=== PATIENT | female | born 1980 | race Caucasian/White ===

== ENCOUNTER 2023-09-18 09:07 | Observation (INO) | payer MEDICAID, SELFPAY ==
[2023-09-18 09:14] VITALS: BP 163/101; PULSE 95; RESP 16; TEMP 37; O2SAT 99; BMI 36.6
--- NOTE | 2023-09-18 09:21 | ED.ANIMALBI1 ---
HPI - Animal Bite General Chief Complaint: Extremity Injury, Upper Stated Complaint: UPPER EXTREMITY INJURY- RIGHT Time Seen by Provider: 09/18/23 09:12 Source: patient Mode of arrival: walk-in Limitations: no limitations History of Present Illness HPI narrative: 43-year-old female presents for dog bite to her right hand. This was sustained two days ago. She was seen at an urgent care center that day and then received a phone call from her pharmacy today that her antibiotic was ready. She hasn't taken any yet. Last tetanus shot was three years ago. She was told her middle finger was broken but now her index finger is quite red and swollen. Related Data Home Medications Medication Instructions Recorded Confirmed buspirone 15 mg tablet 15 mg PO BID 09/18/23 09/18/23 duloxetine 30 mg capsule,delayed 30 mg PO BID 09/18/23 09/18/23 release (Cymbalta) Allergies Allergy/AdvReac Type Severity Reaction Status Date / Time No Known Drug Allergies Allergy Verified 09/18/23 09:13 Review of Systems ROS Narrative A ten point review of systems is negative except as noted above. PFSH PFSH Social History Smoking status: Never smoker Exam Narrative Exam Narrative: Nurses note and vital signs reviewed and patient is not hypoxic. General: The patient appears well and in no apparent distress. Patient is resting comfortably on cart. Skin: Warm, dry, no pallor noted. There is no rash noted. Head: Normocephalic, atraumatic Eye: Normal conjunctiva, no drainage Ears, Nose, Mouth, and Throat: oral mucosa is moist. Nares patent. Cardiovascular: Regular Rate and Rhythm Respiratory: Patient is in no distress, no accessory muscle use, lungs are clear to auscultation, no wheezing, rales or rhonchi Back: non-tender GI: soft and nontender Musculoskeletal: the right hand is examined. The index finger is erythematous and somewhat swollen limiting her range of motion. There is no active drainage. She has some tenderness in the 3rd finger as well. Neurological: A&O, normal speech Psychiatric: Cooperative Constitutional Vital Signs, click to edit/add: Last Vital Signs Temp 98.6 F 09/18/23 09:14 Pulse 95 H 09/18/23 09:14 Resp 16 09/18/23 09:14 BP 163/101 H 09/18/23 09:14 Pulse Ox 99 09/18/23 09:14 O2 Del Method Room Air 09/18/23 09:14 Course Vital Signs Vital signs: Vital Signs Temperature 98.6 F 09/18/23 09:14 Pulse Rate 95 H 09/18/23 09:14 Respiratory Rate 16 09/18/23 09:14 Blood Pressure 163/101 H 09/18/23 09:14 Pulse Oximetry 99 09/18/23 09:14 Oxygen Delivery Method Room Air 09/18/23 09:14 Temperature 98.6 F 09/18/23 09:14 Pulse Rate 95 H 09/18/23 09:14 Respiratory Rate 16 09/18/23 09:14 Blood Pressure 163/101 H 09/18/23 09:14 Pulse Oximetry 99 09/18/23 09:14 Oxygen Delivery Method Room Air 09/18/23 09:14 MDM - Animal Bite MDM Narrative Medical decision making narrative: X-ray shows no fracture or foreign body. She has cellulitis of her right index finger. I've no clinical suspicion of tenoynovitis and there is no evidence of an abscess. she was given IV Unasyn and is being admitted. Treatment diagnosis and disposition were discussed with the patient. Differential Diagnosis Differential diagnosis: Likely dog bite and other (cellulitis, foreign body, fracture) Lab Data Attestation: I reviewed the patient's lab results. Labs: Lab Results 09/18/23 Range/Units 09:27 WBC 7.9 (4.0-11.0) 10^3/uL RBC 4.55 (4.20-5.40) 10^6/uL Hgb 13.8 (12.0-16.0) g/dL Hct 41.9 (36.0-48.0) % MCV 92.1 (81.0-99.0) fL MCH 30.3 (26.7-34.0) pg MCHC 32.9 (29.9-35.2) g/dL RDW 13.2 (11.0-15.0) % Plt Count 263 (150-450) 10^3/uL MPV 9.2 L (9.5-13.5) fL Neut % (Auto) 63.6 (43.0-75.0) % Lymph % (Auto) 23.8 (20.5-60.0) % [place] % (Auto) 8.7 (1.7-12.0) % Eos % (Auto) 2.7 (0.9-7.0) % Baso % (Auto) 0.9 (0.2-2.0) % Neut # (Auto) 5.0 (1.4-6.5) 10^3/uL Lymph # (Auto) 1.9 (1.2-3.8) 10^3/uL [place] # (Auto) 0.7 (0.3-0.8) 10^3/uL Eos # (Auto) 0.2 (0.0-0.7) 10^3/uL Baso # (Auto) 0.1 (0.0-0.1) 10^3/uL Abs Immat Gran (auto) 0.02 (0.00-0.03) 10^3/uL Imm/Tot Granulo (auto) 0.3 (0.0-0.5) % Sodium 139 (136-145) mmol/L Potassium 3.7 (3.5-5.1) mmol/L Chloride 103 (98-107) mmol/L Carbon Dioxide 27.6 (21.0-32.0) mmol/L Anion Gap 12.1 BUN 13.0 (7.0-18.0) mg/dL Creatinine 0.67 (0.55-1.02) mg/dL Est GFR ( Amer) >60 (>=60) Est GFR (Non-Af Amer) >60 (>=60) BUN/Creatinine Ratio 19.4 Glucose 105 (74-106) mg/dL Calcium 8.7 (8.5-10.1) mg/dL Imaging Data hand x-ray: Radiologist's impression: ITS Impressions Hand X-Ray 09/18/23 09:35 IMPRESSION: 1. No radiopaque foreign body. 2. No bone involvement. Electronically authenticated by: EDI CHÁVEZ Date: 09/18/2023 10:07 Discharge Plan Discharge Chief Complaint: Extremity Injury, Upper Clinical Impression: Dog bite, Cellulitis Patient Disposition: Admitted as Observation Time of Disposition Decision: 11:06 Condition: Good
[2023-09-18 09:31] LABS: Basophils Absolute Auto 0.1 10^3/uL (0.0-0.1); Basophils Percent Auto 0.9 % (0.2-2.0); Eosinophils Absolute Auto 0.2 10^3/uL (0.0-0.7); Eosinophils Percent Auto 2.7 % (0.9-7.0); Hematocrit 41.9 % (36.0-48.0); Hemoglobin 13.8 g/dL (12.0-16.0); Immature Granulocytes Abs Auto 0.02 10^3/uL (0.00-0.03); Immature Granulocytes Pct Auto 0.3 % (0.0-0.5); Lymphocytes Absolute Auto 1.9 10^3/uL (1.2-3.8); Lymphocytes Percent Auto 23.8 % (20.5-60.0); Mean Corpuscular HGB Conc 32.9 g/dL (29.9-35.2); Mean Corpuscular Hemoglobin 30.3 pg (26.7-34.0); Mean Corpuscular Volume 92.1 fL (81.0-99.0); Mean Platelet Volume 9.2 fL (9.5-13.5); Monocytes Absolute Auto 0.7 10^3/uL (0.3-0.8); Monocytes Percent Auto 8.7 % (1.7-12.0); Neutrophils Percent Auto 63.6 % (43.0-75.0); Platelet Count 263 10^3/uL (150-450); Red Blood Count 4.55 10^6/uL (4.20-5.40); Red Cell Distribution Width 13.2 % (11.0-15.0); White Blood Count 7.9 10^3/uL (4.0-11.0)
--- NOTE | 2023-09-18 09:35 | XR_ITS ---
The [address] [address] Patient Name: ALFIE HICKS MRN: [id number] date: 1980 Sex: F Assigned Patient Location: ER Current Patient Location: ER Accession/Order Number: [id number] Exam Date: 09/18/2023 09:30 Report Date: 09/18/2023 10:07 At the request of: NATHANAEL GUPTA Procedure: XR hand RT min 3V PROCEDURE: XR hand RT min 3V HISTORY: dog bite ; swelling of second and third digits COMPARISON: None. FINDINGS: BONES:No fracture, acute abnormality, or significant arthropathy. SOFT TISSUES:Mild soft tissue swelling of second third digit. No radiopaque foreign body. EFFUSION:None visible. OTHER: Negative. XR/XR hand RT min 3V IMPRESSION: 1. No radiopaque foreign body. 2. No bone involvement. Electronically authenticated by: EDI CHÁVEZ Date: 09/18/2023 10:07
[2023-09-18] MEDS: AMPICILLIN SODIUM/SULBACTAM NA 3 GM in 0.9 % SODIUM CHLORIDE 100 ML IV ×3 (09:39→21:29)
[2023-09-18 09:47] LABS: Anion Gap 12.1; BUN Creatinine Ratio 19.4; Calcium 8.7 mg/dL (8.5-10.1); Carbon Dioxide 27.6 mmol/L (21.0-32.0); Chloride 103 mmol/L (98-107); Estimated GFR (African America >60 (>=60); Estimated GFR (Non-African Ame >60 (>=60); Glucose 105 mg/dL (74-106); Potassium 3.7 mmol/L (3.5-5.1); Sodium 139 mmol/L (136-145)
[2023-09-18 11:30] VITALS: BP 136/74; PULSE 84; RESP 18; O2SAT 99
[2023-09-18 11:58] VITALS: BP 153/90; PULSE 73; RESP 18; TEMP 36.8; O2SAT 98; BMI 37.7
[2023-09-18] MEDS: IBUPROFEN 400 MG TABLET 800 MG PO ×2 (14:08→22:07)
[2023-09-18] MEDS: AMLODIPINE BESYLATE 5 MG TABLET PO (14:08)
[2023-09-18 19:29] VITALS: RESP 18
[2023-09-18] MEDS: DULOXETINE HCL 30 MG CAPSULE.DR PO (21:29)
[2023-09-18] MEDS: BUSPIRONE HCL 15 MG TABLET PO (21:29)
[2023-09-18 21:36] VITALS: BP 146/95; PULSE 86; RESP 18; TEMP 36.8; O2SAT 98
[2023-09-19] MEDS: AMPICILLIN SODIUM/SULBACTAM NA 3 GM in 0.9 % SODIUM CHLORIDE 100 ML IV ×2 (03:56→09:32)
[2023-09-19 04:49] VITALS: BP 129/80; PULSE 71; RESP 18; TEMP 36.6; O2SAT 98
[2023-09-19 05:33] LABS: Basophils Absolute Auto 0.1 10^3/uL (0.0-0.1); Basophils Percent Auto 0.6 % (0.2-2.0); Eosinophils Absolute Auto 0.2 10^3/uL (0.0-0.7); Eosinophils Percent Auto 2.9 % (0.9-7.0); Hematocrit 41.5 % (36.0-48.0); Hemoglobin 13.7 g/dL (12.0-16.0); Immature Granulocytes Abs Auto 0.02 10^3/uL (0.00-0.03); Immature Granulocytes Pct Auto 0.3 % (0.0-0.5); Lymphocytes Absolute Auto 2.4 10^3/uL (1.2-3.8); Lymphocytes Percent Auto 30.4 % (20.5-60.0); Mean Corpuscular Hemoglobin 30.1 pg (26.7-34.0); Mean Corpuscular Volume 91.2 fL (81.0-99.0); Mean Platelet Volume 9.9 fL (9.5-13.5); Monocytes Absolute Auto 0.6 10^3/uL (0.3-0.8); Monocytes Percent Auto 7.7 % (1.7-12.0); Neutrophils Absolute Auto 4.6 10^3/uL (1.4-6.5); Neutrophils Percent Auto 58.1 % (43.0-75.0); Platelet Count 276 10^3/uL (150-450); Red Blood Count 4.55 10^6/uL (4.20-5.40); Red Cell Distribution Width 13.2 % (11.0-15.0); White Blood Count 7.9 10^3/uL (4.0-11.0)
[2023-09-19 05:45] LABS: Anion Gap 13.7; BUN Creatinine Ratio 20.6; Calcium 8.8 mg/dL (8.5-10.1); Carbon Dioxide 25.1 mmol/L (21.0-32.0); Chloride 105 mmol/L (98-107); Estimated GFR (African America >60 (>=60); Estimated GFR (Non-African Ame >60 (>=60); Glucose 104 mg/dL (74-106); Potassium 3.8 mmol/L (3.5-5.1); Sodium 140 mmol/L (136-145)
[2023-09-19] MEDS: BUSPIRONE HCL 15 MG TABLET PO (08:25)
[2023-09-19] MEDS: DULOXETINE HCL 30 MG CAPSULE.DR PO (08:25)
[2023-09-19] MEDS: AMLODIPINE BESYLATE 5 MG TABLET PO (08:25)
--- NOTE | 2023-09-19 09:59 | P.HP_ITS ---
<Statement entered by Joel Gibbs MD - 09/19/23 17:09> Patient seen and examined, agree with assessment and plan below. Developed redness and swelling after dog bite. To urgent care but did not start antibiotics. Redness and pain worsened and to ER. Admitted on unasyn. Responded well and redness mostly resolved. Mild swelling. Discharged home in stable condition. Take augmentin PO for infection. Diagnosis: 1. Cellulitis right hand 2. Dog bite 3. HTN H&P: HPI History of Present Illness Chief complaint: UPPER EXTREMITY INJURY- RIGHT Narrative: 09/19/23 0958 This is a 43-year-old female patient with a past medical history as outlined below who presented to the ED yesterday morning complaining of increased swelling and redness to her right hand after suffering a dog bite on 09/16/23. The patient reports she had been attempting to break up a dog fight on Monday and was bitten accidentally by one of the dogs. She was seen at a local urgent care later that same day and was prescribed antibiotic. Apparently the antibiotic was out of stock at the pharmacy and they were going to call her when it was back in stock. By Monday (yesterday) the pharmacy is still not called and she decided to go to the ED for treatment as her symptoms were worsening. As she arrived at the ED she received a call from her pharmacy that the medication was available. Workup in the ED was relatively unremarkable without leukocytosis or lab abnormalities. The patient was afebrile. An x-ray of her hand did not find evidence of a foreign body, abscess, or acute bony abnormality. As her symptoms were worsening without treatment, she was admitted in observation yesterday afternoon to the hospitalist service for IV antibiotic administration and monitoring. At the time of my exam today the patient reports that her symptoms have significantly improved after IV antibiotic administration. The margins of her cellulitis had been marked in the ED and the redness had nearly completely resolved today. She has a tiny amount of serous drainage from one of the puncture wounds but no purulent drainage is noted. Her right index and middle finger are still swollen but improved from admission. She remains afebrile. DISPOSITION: As the patient is improving and able to take oral antibiotics, she is being discharged home in stable condition. She already has a prescription for Augmentin which is appropriate treatment for this wound. The patient has had a tetanus shot within the last 3 years. She should follow up with her PCP within 1 week and return to the ED if she develops a fever, purulent drainage or worsening redness, swelling, pain. Review of Systems ROS Status of ROS 10 or more systems reviewed and unremark able except as noted in history and below [facility] Medical History (Updated 09/19/23 @ 13:10 by Natalee Wilhelm NP) Hypertension ?I10 - Essential (primary) hypertension (ICD-10) Cellulitis ?L03.90 - Cellulitis, unspecified (ICD-10) ADHD ?F90.9 - Attention-deficit hyperactivity disorder, unspecified type (ICD-10) Anxiety ?F41.9 - Anxiety disorder, unspecified (ICD-10) Fibromyalgia ?M79.7 - Fibromyalgia (ICD-10) Surgical History (Updated 09/18/23 @ 11:53 by Bridget West) H/O lithotripsy ?Z98.890 - Other specified postprocedural states (ICD-10) Breast tumor ?D49.3 - Neoplasm of unspecified behavior of breast (ICD-10) History of partial gastrectomy ?Z90.3 - Acquired absence of stomach [part of] (ICD-10) Family History (Updated 09/18/23 @ 11:54 by Bridget West) Mother Family history of stroke Father Family history of myocardial infarction Family history of hypertension Social History (Updated 09/18/23 @ 11:56 by Bridget West) Within the past year, how often did you have a drink containing alcohol: 2-3 times a week Within the past year, how many standard drinks containing alcohol did you have on a typical day: 1 or 2 Within the past year, how often did you have six or more drinks on one occasion: never Total score: 0 Score interpretation: Questions 2 and 3 are 0. It can be assumed that the patient's drinking is below the recommended limits. However, please confirm the accuracy of the patient's alcohol intake over the last few months. Smoking status: Former smoker Non-prescribed substance use: denies use Previous occupational history: unemployed Highest level of school completed/degree received: Associate degree: academic program Are you now , , , , never or living with a partner: Little interest or pleasure in doing things: not at all Feeling down, depressed, or hopeless: not at all Feel stressed/tense/nervous/anxious/difficulty sleeping: not at all Meds Home Medications and Allergies Home Medications Medication Instructions Recorded Confirmed Type amlodipine 5 mg tablet 5 mg PO DAILY 09/18/23 09/18/23 History buspirone 15 mg tablet 15 mg PO BID 09/18/23 09/18/23 History duloxetine 30 mg capsule,delayed 30 mg PO BID 09/18/23 09/18/23 History release (Cymbalta) amoxicillin 875 mg-potassium 1 tab PO BID 09/19/23 09/19/23 History clavulanate 125 mg tablet Allergies Allergy/AdvReac Type Severity Reaction Status Date / Time No Known Drug Allergies Allergy Verified 09/18/23 09:13 Exam Constitutional Vital Signs, click to edit/add: Last Vital Signs Temp 97.9 F 09/19/23 04:49 Pulse 71 09/19/23 04:49 Resp 18 09/19/23 04:49 BP 129/80 09/19/23 04:49 Pulse Ox 98 09/19/23 04:49 O2 Del Method Room Air 09/19/23 04:49 Common normals: no apparent distress, oriented x3, alert and well nourished General appearance: cooperative Orientation/consciousness: Yes awake HENMT Common normals: normocephalic, head/scalp atraumatic, hearing grossly normal bilaterally, external nose normal and moist oral mucous membranes Eye Common normals: PERRL, EOMs intact bilaterally, conjunctivae normal and no scleral icterus Alignment: alignment normal Eyelid: eyelids normal Neck & C-Spine Common normals: full ROM, supple and no JVD Chest Common normals: inspection of chest normal Chest: symmetrical chest wall rise Respiratory Common normals: normal respiratory effort, no retractions, no use of accessory muscles and clear to auscultation bilaterally Effort & inspection: able to speak in complete sentences Cardio Common normals: no JVD, regular rate, regular rhythm, S1 normal heart sound, S2 normal heart sound, no gallops, no clicks, no murmurs, no rub and peripheral pulses 2+ throughout GI Common normals: Normal to inspection, nondistended, normoactive bowel sounds present, soft to palpation, non-tender, no hepatosplenomegaly, no masses and no bruits Bladder/kidney exam: bladder normal to palpation Back & Pelvis Common normals: thoracic and lumbar spine normal to inspection Extremity Common normals: normal capillary refill and no pedal edema General: normal exam except as noted; no clubbing and no cyanosis Right upper extremity: hand and digits (R 2nd & 3rd digits swollen, minimal erythema, mild serous drng) Left upper extremity: hand and digits (Small 2nd digit puncture wound) Neuro [place] Coma Scale: GCS not evaluated Common normals: CN's II-XII intact bilaterally, moves all extremities, no focal motor deficits and no sensory deficits noted Speech: speech normal Motor exam: strength 5/5 throughout Psych Common normals: mental status grossly normal, thought process normal, affect normal and activity/motor behavior normal Results Labs Labs: Short CBC 09/19/23 Range/Units 04:47 WBC 7.9 (4.0-11.0) 10^3/uL Hgb 13.7 (12.0-16.0) g/dL Hct 41.5 (36.0-48.0) % Plt Count 276 (150-450) 10^3/uL BMP 09/19/23 04:47 Sodium 140 Potassium 3.8 Chloride 105 Carbon Dioxide 25.1 BUN 14.0 Creatinine 0.68 Glucose 104 Calcium 8.8 Pulse Oximetry Attestation: I have reviewed the pertinent pulse oximetry results. Imaging R Hand x-ray: Attestation: I have reviewed the pertinent imaging results. Radiologist's impression: IMPRESSION: 1. No radiopaque foreign body. 2. No bone involvement. Assessment and Plan Assessment and Plan (1) Dog bite: Assessment and Plan: ACUTE * Adm observation * with associated cellulitis noted * Pt remains afebrile, w/o leukocytosis * IVPB Unasyn initiated in the ED - significant improvement noted overnight * Continue PO Augmentin as previously prescribed for dog bite wound (2) Anxiety: Assessment and Plan: CHRONIC * Continue home Buspar (3) Hypertension: Assessment and Plan: CHRONIC * Continue home amlodipine (4) Fibromyalgia: Assessment and Plan: CHRONIC * Continue home Cymbalta
--- NOTE | 2023-09-19 11:27 | CM.NOTE ---
Rounds made with Dr. Gibbs, discussed discharge to home later today for pt. Pt does not have family physician but would like to f/u with Dr. Denton.
--- NOTE | 2023-09-20 10:13 | CM.DCFOLLOWU ---
Person spoke with: patient How are you feeling? well How is your pain? no pain Did you understand your discharge instructions? yes Do you have any questions about your discharge instructions? no Were you given any prescriptions at discharge? yes Were you able to get your prescriptions filled? yes Do you understand how to take your medications as ordered? yes Do you have any questions about your follow up appointment and do you plan to keep your follow up appointment? no questions, has follow up 09/21/23 Is there anything else that you would like to discuss? no Questions/Comments/Concerns/Other: N/A
== END 2023-09-19 11:42 | disposition home or self-care (01) ==
LOC: ER 11:06 → MS 11:39
PROVIDERS: Admitting Provider Family Medicine; Emergency Provider Emergency Medicine; Visit Provider Family Medicine
DX: S61.451A Open bite of right hand, initial encounter (principal); L03.113 Cellulitis of right upper limb; W54.0XXA Bitten by dog, initial encounter; I10 Essential (primary) hypertension; F41.9 Anxiety disorder, unspecified; M79.7 Fibromyalgia; F90.9 Attention-deficit hyperactivity disorder, unspecified type; Z90.3 Acquired absence of stomach [part of]; Z98.890 Other specified postprocedural states; Z87.891 Personal history of nicotine dependence; Z79.899 Other long term (current) drug therapy
CPT/HCPCS: 36415; 73130; 80048; 85025; 96365; 96366; 99285; G0378; J0295

== ENCOUNTER 2023-10-03 13:39 | Emergency (ER) | payer MEDICAID, SELFPAY ==
[2023-10-03 13:44] VITALS: BP 127/96; PULSE 94; RESP 16; TEMP 36.8; O2SAT 97; BMI 37.2
--- OUTSIDE RECORDS SUMMARY | 2023-10-03 13:55 | XMS_ITS | CCD ---
Author Name Unknown Address [address] [place] [address] Organization [facility] Care Team Providers Care Social Service Manager Name Role Phone Lidia Graciela Unavailable Unavailable Graciela Lovelace Unavailable Unavailable Lidia Graciela Unavailable Unavailable Unavailable Marcy Sutherland Unavailable DAV Sutherland Attending Provider SHAIKH BUSTAMANTE Attending Unavailable Marcy Sutherland Attending Unavailable Marcy Sutherland Admitting Unavailable Medications Current Medications Medication Drug Class(es) Dates Sig (Normalized) Sig (Original) amoxicillin 875 mg / clavulanate 125 mg oral tablet (2 sources) Penicillin-class Antibacterial Start: 09-16-2023 take 1 tablet by mouth every twelve hours Amoxicillin-Pot Clavulanate 875-125 MG 1 tablet Orally every 12 hrs for 10 days Aug, Active Start: 09-07-2020 take 1 tablet by tana th every twelve hours Amoxicillin-Pot Clavulanate 875-125 MG Oral Tablet TAKE 1 TABLET EVERY 12 HOURS UNTIL GONE. Quantity: 20 Refills: 0 Ordered: 07-Sep-2020 Graciela Lovelace MD Start : 07-Sep-2020 Active busPIRone (1 source) BuSpar Active Completed/Discontinued Medications Medication Drug Class(es) Dates Sig (Normalized) Sig (Original) amoxicillin 500 mg oral capsule (2 sources) Penicillin-class Antibacterial Start: 03-22-2020 Amoxicillin 500 MG Oral Capsule Quantity: 21 Refills: 0 Ordered: 22-Mar-2020 DO Start : 22-Mar-2020 Active Start: 03-22-2020 Amoxicillin 50 0 MG Oral Capsule Quantity: 21 Refills: 0 Start : 22-Mar-2020 Active amphetamine aspartate 7.5 mg / amphetamine sulfate 7.5 mg / dextroamphetamine saccharate 7.5 mg / dextroamphetamine sulfate 7.5 mg oral tablet (4 sources) Central Nervous System Stimulant Start: 09-20-2019 Amphetamine-Dextroamphetamin e 30 MG Oral Tablet Quantity: 180 Refills: 0 Ordered: 20-Sep-2019 DO Start : 20-Sep-2019 Active Start: 09-20-2019 Amphetamine-De xtroamphet ER 15 MG Oral Capsule Extended Release 24 Hour Quantity: 90 Refills: 0 Ordered: 20-Sep-2019 DO Start : 20-Sep-2019 Active Start: 09-20-2019 Amphetamine-De xtroamphetamine 30 MG Oral Tablet Quantity: 180 Refills: 0 Start : 20-Sep-2019 Active Start: 09-20-2019 take 1 capsule by mo ut every twenty-four hours Amphetamine-Dextroamphet ER 15 MG Oral Capsule Extended Release 24 Hour Quantity: 90 Refills: 0 Start : 20-Sep-2019 Active chlorhexidine gluconate 1.2 mg/ml mouthwash (2 sources) Start: 03-22-2020 Chlorhexidine Gluconate 0.12 % Mouth/Throat Solution Quantity: 473 Refills: 0 Ordered: 22-Mar-2020 DO Start : 22-Mar-2020 Active Start: 03-22-2020 Chlorhexidine Gluconate 0.12 % Mouth/Throat Solution Quantity: 473 Refills: 0 Start : 22-Mar-2020 Active DULoxetine 60 mg delayed release oral capsule (15 sources) Serotonin and Norepinephrine Reuptake Inhibitor Start: 04-22-2019 take 1 capsule by mouth once daily DULoxetine HCl - 60 MG Oral Capsule Delayed Release Particles TAKE 1 CAPSULE BY MOUTH EVERY DAY Quantity: 90 Refills: 1 Ordered: 01-Sep-2020 Graciela Lovelace MD Start : 22-Apr-2019 Active Start: 04-22-2019 take 1 capsule by [facility] once daily DULoxetine HCl - 30 MG Oral Capsule Delayed Release Particles TAKE 1 CAPSULE BY MOUTH EVERY DAY Quantity: 30 Refills: 1 Graciela Lovelace MD Start : 22-Apr-2019 Active Cymbalta Active escitalopram 20 mg oral tablet (2 sources) Serotonin Reuptake Inhibitor Start: 10-21-2019 Escitalopram Oxalate 20 MG Oral Tablet Quantity: 135 Refills: 0 Ordered: 21-Oct-2019 DO Start : 21-Oct-2019 Active Start: 10-21-2019 Escitalopram O xalate 20 MG Oral Tablet Quantity: 135 Refills: 0 Start : 21-Oct-2019 Active folic acid 1 mg oral tablet (2 sources) Start: 06-16-2020 Folic Acid 1 M G Oral Tablet Quantity: 90 Refills: 0 Ordered: 16-Jun-2020 DO Start : 16-Jun-2020 Active Start: 06-16-2020 Folic Acid 1 M G Oral Tablet Quantity: 90 Refills: 0 Start : 16-Jun-2020 Active pantoprazole 40 mg delayed release oral tablet (1 source) Proton Pump Inhibitor Start: 09-14-2020 take 1 tablet by mouth once daily Pantoprazole Sodium 40 MG Oral Tablet Delayed Release TAKE 1 TABLET BY MOUTH EVERY DAY Quantity: 90 Refills: 3 Ordered: 02-Feb-2021 Graciela Lovelace MD Start : 14-Sep-2020 Active cancel the 30 day supply sertraline 100 mg oral tablet (2 sources) Serotonin Reuptake Inhibitor Start: 06-02-2020 Sertraline HCl - 100 MG Oral Tablet Quantity: 180 Refills: 0 Ordered: 02-Jun-2020 DO Start : 02-Jun-2020 Active Start: 06-02-2020 Sertraline HCl - 100 MG Oral Tablet Quantity: 180 Refills: 0 Start : 02-Jun-2020 Active traZODone hydrochloride 50 mg oral tablet (2 sources) Serotonin Reuptake Inhibitor Start: 09-20-2019 traZODone HCl - 50 M G Oral Tablet Quantity: 45 Refills: 0 Ordered: 20-Sep-2019 DO Start : 20-Sep-2019 Active Start: 09-20-2019 traZODone HCl - 50 MG Oral Tablet Quantity: 45 Refills: 0 Start : 20-Sep-2019 Active Problems Active Problems Problem Classification Problem Date Documented Date Episodic/Chronic Anxiety disorders (2 sources) Mixed anxiety and depressive disorder; Translations: [Dysthymic disorder] Chronic Disorders of lipid metabolism (1 source) Mixed hyperlipidemia; Translations: [Mixed hyperlipidemia] Chronic E Codes: Natural/environment (2 sources) Dog bite - wound; Translations: [Open wound(s) (multiple) of unspecified site(s), without mention of complication] Episodic Esophageal disorders (1 source) Gastroesophageal reflux disease; Translations: [Esophageal reflux] Chronic Fracture of upper limb (1 source) Nondisplaced fracture of middle phalanx of right middle finger, initial encounter for open fracture Episodic Immunizations and screening for infectious disease (1 source) Requires a tetanus booster; Translations: [Need for prophylactic vaccination and inoculation against tetanus toxoid alone] Episodic Malaise and fatigue (1 source) Fatigue; Translations: [Other malaise and fatigue] Chronic Malaise and fatigue (13 sources) Fatigue; Translations: [Chronic fatigue] Episodic Noninfectious gastroenteritis (14 sources) Chronic diarrhea of unknown origin ; Translations: [Diarrhea] Episodic Open wounds of extremities (1 source) Open bite of right hand, initial encounter Episodic Other circulatory disease (14 sources) Ecchymosis; Translations: [Other specified disorders of circulatory system] Episodic Other connective tissue disease (14 sources) Muscle pain; Translations: [Myalgia and myositis, unspecified] Episodic Other connective tissue disease (8 sources) Fibromyalgia; Translations: [Myalgia and myositis, unspecified] Episodic Other connective tissue disease (11 sources) Disorder of tendon; Translations: [Unspecified disorder of synovium, tendon, and bursa] Resolved: 05-28-2019 Episodic Other connective tissue disease (1 source) Pain in right finger(s) Episodic Other non-traumatic joint disorders (3 sources) Arthropathy of knee joint; Translations: [Arthropathy, unspecified, lower leg] Chronic Other non-traumatic joint disorders (14 sources) Joint pain; Translations: [Pain in joint, site unspecified] Episodic Other skin disorders (14 sources) Koilonychia; Translations: [Other specified diseases of nail] Episodic Other skin disorders (14 sources) Inflammatory dermatosis; Translations: [Contact dermatitis and other eczema, unspecified cause] Episodic Other skin disorders (1 source) Easy bruising; Translations: [Other symptoms involving skin and integumentary tissues] Episodic Residual codes; unclassified (13 sources) Bruises easily; Translations: [Easy bruisability] Episodic Unclassified (1 source) Pain in right finger(s); Translations: [Pain in right finger(s)] Onset: 09-16-2023 Past or Other Problems Problem Classification Problem Date Documented Da te Episodic/Chronic NEGATED: Highlighted row has not occurred!Residual codes; unclassified (19 sources) Disease Episodic Results Test Name Value Interpretation Reference Range Facility XR hand RT min 3V*on 024 XR hand RT min 3V* [facility] Main [address] [address] XRay Report Signed Patient: Bhavana Hicks MR#: [id number] : 1980 Acct:[id number] Age/Sex: 43 / F ADM Date: 09/16/23 Loc: XDUCLY Room: Type: [facility] Attending Dr: Marcy DEMARCO Copies to: DAV Mora Ordering Provider: DAV Mora Date of Service: 09/16/23 XR/XR hand RT min 3V*: RIGHT HAND INJURY RIGHT HAND - 3 views REASON FOR EXAM: Right hand injury possible dog bite. Pain and lacerations to right index and middle fingers. COMPARISON: None FINDINGS: No radiopaque foreign body is seen. Possible avulsion injury PIP joint of the third digit focal soft tissue swelling. Joint spaces appear maintained without bony erosions. XR/XR hand RT min 3V* IMPRESSION: POSSIBLE AVULSION INJURY INVOLVING THE PIP JOINT OF THE THIRD DIGIT WITH SOFT TISSUE SWELLING. CORRELATION WITH AREA OF PAIN IS RECOMMENDED. Impression dictated by: Shady Capone Jr., D.O.09/16/2023 12:20 PM Dictation Location: [facility]--15 Transcribed By: [facility] 09/16/23 1220 Dictated By: Shady Capone Jr, DO 09/16/23 1216 Signed By: 09/16/23 1220 [facility] XR hand RT min 3V* [facility] [employer] Other XR hand RT min 3V* [facility] [employer] Other XR hand RT min 3V* [address] [place] [address] [employer] Other XR hand RT min 3V* [place] [address] Located Within [facility] [employer] Other XR hand RT min 3V* XRay Report [employer] Other XR hand RT min 3V* Signed [employer] Other XR hand RT min 3V* Patient: Bhavana Hicks MR#: [id number] [employer] Other XR hand RT min 3V* [address] [employer] [facility] Other XR hand RT min 3V* : 1980 Acct:[id number] [employer] Other XR hand RT min 3V* Age/Sex: 43 / F ADM Date: 09/16/23 [employer] [facility] Other XR hand RT min 3V* Loc: XDUCLY Room: Type: REG I [employer] [facility] Other XR hand RT min 3V* Attending Dr: Marcy DEMARCO [employer] [facility] Other XR hand RT min 3V* Copies to: DAV Mora [employer] [facility] Other XR hand RT min 3V* Ordering Provider: DAV Mora [employer] Other XR hand RT min 3V* Date of Service: 09/16/23 [employer] [facility] Other XR hand RT min 3V* XR/XR hand RT min 3V*: RIGHT HAND INJURY [employer] Other XR hand RT min 3V* RIGHT HAND - 3 views [employer] Other XR hand RT min 3V* REASON FOR EXAM: Right hand injury possible dog bite. Pain and lacerations to right index and [employer] Other XR hand RT min 3V* middle fingers. [employer] Other XR hand RT min 3V* COMPARISON: None [employer] Other XR hand RT min 3V* FINDINGS: [employer] Other XR hand RT min 3V* No radiopaque foreign body is seen. Possible avulsion injury PIP joint of the third digit focal [employer] Other XR hand RT min 3V* soft tissue swelling. Joint spaces appear maintained without bony erosions. [employer] Other XR hand RT min 3V* XR/XR hand RT min 3V* [employer] Other XR hand RT min 3V* IMPRESSION: [employer] Other XR hand RT min 3V* POSSIBLE AVULSION INJURY INVOLVING THE PIP JOINT OF THE THIRD DIGIT WITH SOFT TISSUE SWELLING. [employer] Other XR hand RT min 3V* CORRELATION WITH AREA OF PAIN IS RECOMMENDED. [employer] Other XR hand RT min 3V* Impression dictated by: Shady Capone Jr., D.O.09/16/2023 12:20 PM [employer] Other XR hand RT min 3V* Dictation Location: [facility] [employer] Other XR hand RT min 3V* Transcribed By: PWS 09/16/23 1220 [employer] Other XR hand RT min 3V* Dictated By: Shady Capone Jr, DO 09/16/23 1216 [employer] Other XR hand RT min 3V* Signed By: [employer] Other XR hand RT min 3V* 09/16/23 1220 [employer] Other ED NOTEon 09-09-2020 ED NOTE HNO ID: [id number] Author: Bessy ArguelloRn) WENDY Balbuena Service: ? Author Type: Registered Nurse Type: ED Notes Filed: 09/09/2020 8:02 PM Note Text: Wound soaked in Hibiclens for approx 10 min and air dried. Applied non-adherent dressing and tube gauze to affected finger per [place] MURPHY [facility] INR Coag (Bld) [Relative time] HNO ID: [id number] Author: Ben ArguelloRnTete Hernandez RN Service: ? Author Type: Registered Nurse Type: ED Notes Filed: 09/09/2020 7:26 PM Note Text: Pt arrived with dog bite to right 4th digit from known dog, already on Augmentin from past dog bite . Bleeding controlled, able to flex finger. [facility] ED PROV NOTEon 09-09-2020 ED PROV NOTE HNO ID: [id number] Author: Phoenix Cuevas (Pa) Service: ? Author Type: Physician Brazing Machine Operator Type: ED Provider Notes Filed: 09/09/2020 7:49 PM Note Text: ED Provider Note Patient Name: Bhavana Hicks SERVICE DATE: 09/09/20 History Patient presents with: Dog Bite: right 4th digit 40-year-old female presents emergency department for dog bite to left ring finger on R hand. Patient reports that she can separate her dog from family members dog when she was bit in the left ring finger. Reports laceration to palmar aspect of left proximal finger. Patient reports significant amount of bleeding which stopped with pressure. Patient previously seen in emergency department for dog bite to right arm and is on day 3 of Augmentin. Wound is healing but continues to have pain and bruising. Patient had tetanus updated this week. Patient has no other complaints at this time. Patient is right-handed. Patient able to flex and extend all digits on right hand. PAST MEDICAL HISTORY Diagnosis Date - Fibromyalgia - Gastric tumor s/p resection - Kidney stones No past surgical history on file. No family history on file. Social History Tobacco Use - Smoking status: Not on file Substance and Sexual Activity - Alcohol use: Not on file - Drug use: Not on file - Sexual activity: Not on file ALLERGIES No Known Allergies Review of Systems Skin: R ring finger dog bite Allergic/Immunologic: Negative for immunocompromised state. Hematological: Does not bruise/bleed easily. All other systems reviewed and are negative. Physical Exam BP 135/98 Pulse 98 Temp (Src) 98.1 (Oral) Resp 18 Ht 5' 2 (1.58m) Wt 175 lb (79.4kg) SpO2 99% BMI 32.00 kg/(m2). O2 Therapy: Room Air Physical Exam Vitals and nursing note reviewed. Constitutional: Appearance: She is well-developed. HENT: Head: Normocephalic and atraumatic. Eyes: Conjunctiva/sclera: Conjunctivae normal. Neck: Trachea: Trachea normal. No tracheal deviation. Cardiovascular: Comments: RRR, heart sounds normal Pulmonary: Effort: Pulmonary effort is normal. No respiratory distress. Breath sounds: Normal breath sounds. Abdominal: Tenderness: There is no guarding or rebound. Comments: Abdomen soft and nontender. Skin: General: Skin is warm. Findings: No rash. Comments: Small soft tissue avulsion to palmar aspect of right proximal ring finger. Patient able to flex and extend all digits of right hand. Grasp strength intact. No bony tenderness. Bleeding controled. Old previous wounds to posterior aspect of right forearm. No signs of infection. Neurological: Mental Status: She is alert and oriented to person, place, and time. Psychiatric: Behavior: Behavior normal. Diagnostic Testing ED Labs Ordered and Reviewed - No data to display Procedures ED Course / Clinical Impression Clinical Impressions as of Sep 09 1939 Dog bite of finger, initial encounter Laceration of left ring finger, foreign body presence unspecified, nail damage status unspecified, initial encounter MDM / Disposition / Plan Vital signs were reviewed. Triage records were reviewed. Medical records were reviewed. Nursing notes were reviewed and incorporated. Initial VS: BP 135/98 Pulse (!) 98 Temp 36.7 ?C (98.1 ?F) (Oral) Resp 18 Ht 157.5 cm (5' 2 ) Wt 79.4 kg (175 lb) SpO2 99% BMI 32.01 kg/m? 40 year old female presents with Dog bite R hand. Pt is afebrile, non-toxic and hemodynamically stable. Physical exam revealed Small soft tissue avulsion to palmar aspect of right proximal ring finger. Patient able to flex and extend all digits of right hand. Grasp strength intact. No bony tenderness. Bleeding controled. Tetanus immunization previously updated this week. Plan to thoroughly clean right hand with Hibiclens and normal saline. Will place nonadherent bandage on have patient follow-up with me in 2 days for wound check. Will not Suture today secondary to skin avulsion and dog bite. Education on bandage changes and delayed healing. Previous dog bite wounds noninfected and well healing. Will give prescription for Augmentin. Pt discharged home in good condition. Pt instructed to f/u with PCP and encouraged to return if symptoms worsen or if new symptoms develop. Patient expressed understanding and consented to the above plan. No barriers of communication were apparent and I answered all questions. SIGNATURE: FRIEDA Schwartz (Pa) 09/09/20 194 [facility] ALLIED HEALTHon 08-27-2020 ALLIED HEALTH HNO ID: [id number] Author: Trevon (Rt) Italia Kay Service: Radiology Author Type: Salesperson Jewelry Type: Allied Health Filed: 08/27/2020 5:03 PM Note Text: Radiology Service Progress Note PATIENT NAME: Bhavana Hicks DATE OF SERVICE: August 27, 2020 TIME: 5:03 PM PATIENT IDENTITY VERIFICATION COMPLETED USING TWO (2) IDENTIFIERS: Name and Date of confirmed by patient verbally. FALL SCREENING: Has the patient had 2 falls in the last year or 1 fall with injury or currently using an Ambulatory Assistive Device (Walker, Cane, Wheelchair, Crutches, etc.)? Emergency Room Patient: Screened in ED PATIENT GENDER DATA: Female. status: : No status: NO. PATIENT RELEVANT IMPLANT DATA REVIEWED: Not Applicable RADIOLOGY DEPARTMENT: CT; Exam(s) Completed: Abdomen/Pelvis PERIPHERAL IV DATA: Inpatient: see LDA documentation SIGNED BY: RT Kristy August 27, 2020 5:03 PM [facility] CBC and Differentialon 08-27 Abs Baso 0.03 k/uL Normal <0.11 [facility] Abs Kenedy 0.63 k/uL Normal <0.87 [facility] Abs Neut 13.16 k/uL High 1.45-7.50 [facility] Absolute nRBC <0.01 Normal <0.01 [facility] Basophils/100 WBC (Bld) 0.2 % [facility] DTYPE Auto Diff [facility] Eosinophils (Bld) [#/Vol] 10*3/uL Normal <0.46 [facility] Eosinophils/100 WBC (Bld) 0.1 % [facility] Erythrocyte distribution width (RBC) [Ratio] 12.6 % Normal 11.5-15.0 [facility] Hematocrit (Bld) [Volume fraction] 44.6 % Normal 36.0-46.0 [facility] Hemoglobin (Bld) [Mass/Vol] 14.9 g/dL Normal 11.5-15.5 [facility] Lymphocytes (Bld) [#/Vol] 0.80 10*3/uL Low 1.00-4.00 [facility] Lymphocytes/100 WBC (Bld) 5.5 % [facility] MCH (RBC) [Entitic mass] 31.6 pG Normal 26.0-34.0 [facility] MCHC (RBC) [Mass/Vol] 33.4 g/dL Normal 30.5-36.0 [facility] MCV (RBC) [Entitic vol] 94.7 fL Normal 80.0-100.0 [facility] Monocytes/100 WBC (Bld) 4.3 % [facility] Neutrophils/100 WBC (Bld) 89.9 % [facility] NRBCs 0.0 /100 WBC Normal 0 [facility] Platelet mean volume (Bld) [Entitic vol] 9.3 fL Normal 9.0-12.7 [facility] Platelets (Bld) [#/Vol] 258 10*3/uL Normal 150-400 [facility] RBC (Bld) [#/Vol] 4.71 10*6/uL Normal 3.90-5.20 [facility] WBC (Bld) [#/Vol] 14.64 10*3/uL High 3.70-11.00 [facility] CT FLANK WO IVCONon 08-27-20 CT FLANK WO IVCON * * *Final Report* * * DATE OF EXAM: Aug 27 2020 5:06PM [facility] 0529 - CT FLANK WO IVCON / PROCEDURE REASON: Flank pain, stone disease suspected * * * * Physician Interpretation * * * * RESULT: EXAMINATION: CT ABDOMEN AND PELVIS WITHOUT IV CONTRAST (Renal stone protocol) CLINICAL HISTORY: Unspecified flank pain. Hematuria. TECHNIQUE: Non-contrast imaging of the abdomen and pelvis was performed through the urinary tract. Study performed without intravenous or oral contrast to evaluate for urinary tract calculus. MQ: [id number] Contrast: IV contrast: None Oral contrast: None CT Radiation dose: Integrated dose-length product (DLP) for this visit = 350 mGy*cm. CT Dose Reduction Employed: Automated exposure control(AEC) and iterative recon COMPARISON: None. RESULT: Limitations: Unenhanced imaging is limited for the evaluation of some renal and other intra-abdominal and pelvic pathology. Urinary Tract: Right kidney and ureter: 1 or 2 punctate calculi. No hydronephrosis. No finding to suggest cyst or mass in the unenhanced kidney. Left kidney and ureter: There is mild hydronephrosis and infiltration of the perirenal fat. Punctate calculus in the upper pole and lower pole. Borderline proximal hydroureter. Ureteral calculus about 3 mm in diameter at the level L3-4 disc space. The borderline prominence of the ureter appears to extend 2 to 3 cm distal to the calculus. No finding to suggest cyst or mass in the unenhanced kidney. Bladder: No calculus. Abdomen and Pelvis: Liver: Unremarkable. Biliary: The gallbladder is unremarkable. Spleen: No splenomegaly. Pancreas: Unremarkable. Adrenals: Normal. GI Tract: No bowel dilation. Appendix appears normal. Lymph Nodes: No lymphadenopathy. Mesentery/peritoneum: No ascites. Vasculature: No abdominal aortic or iliac artery aneurysm. Pelvis: No mass or ascites. Bones and Soft Tissues: No acute abnormality. Lower thorax: Unremarkable. Melter Clerk (topogram) images: No additional findings. IMPRESSION: Mild LEFT hydronephrosis and borderline hydroureter probably secondary to LEFT ureteral calculus although the LEFT hydroureter may extend slightly inferior to the calculus suggesting downstream ureteral narrowing due to edema or less likely other etiologies. There is bilateral punctate nephrolithiasis. Transcribed Using Voice Recognition Transcribe Date/Time: Aug 27 2020 5:16P Dictated by: JUAN CARLOS SULLIVAN MD This examination was interpreted and the report reviewed and electronically signed by: JUAN CARLOS SULLIVAN MD on Aug 27 2020 5:27PM EST [id number] [facility] Comp Metabolic Panelon 08-27 Albumin [Mass/Vol] 5.1 g/dL High 3.9-4.9 [facility] ALP [Catalytic activity/Vol] 73 U/L Normal 34-123 [facility] ALT [Catalytic activity/Vol] 20 U/L Normal 7-38 [facility] Anion gap [Moles/Vol] 9 mmol/L Normal 9-18 [facility] AST [Catalytic activity/Vol] 20 U/L Normal 13-35 [facility] Bilirubin [Mass/Vol] 0.3 mg/dL Normal 0.2-1.3 [facility] Calcium [Mass/Vol] 9.0 mg/dL Normal 8.5-10.2 [facility] Chloride [Moles/Vol] 101 mmol/L Normal 97-105 [facility] CO2 [Moles/Vol] 26 mmol/L Normal 22-33 [facility] Creatinine [Mass/Vol] 0.76 mg/dL Normal 0.58-0.96 [facility] eGFR- Amer. >60 [facility] GFR/1.73 sq M predicted among non-blacks MDRD (S/P/Bld) [Vol rate/Area] mL/min/{1.73_m2} [facility] Comment on above: Result Comment: eGFR (Estimated GFR) Units of measure: mL/min/1.73 meters squared eGFR is derived from the reexpressed MDRD Study equation using the following parameters: serum creatinine, age, gender and race. The creatinine assay has been calibrated to be traceable to IDMS. An eGFR <60 mL/min/1.73m2 for >3 months is consistent with chronic kidney disease. Refer to KDOQI guidelines for clinical interpretation. In patients with unstable renal function, e.g. those with acute kidney injury, the eGFR may not accurately reflect actual GFR. Glucose [Mass/Vol] 117 mg/dL High 74-99 [facility] Potassium [Moles/Vol] 3.7 mmol/L Normal 3.7-5.1 [facility] Protein [Mass/Vol] 8.0 g/dL Normal 6.3-8.0 [facility] Sodium [Moles/Vol] 136 mmol/L Normal 136-144 [facility] Urea nitrogen [Mass/Vol] 20 mg/dL Normal 7-21 [facility] ED NOTEon 08-27-2020 ED NOTE HNO ID: [id number] Author: Tyrell (Alan) Tyrese Service: ? Author Type: Other Sales Support Worker and Salesperson Jewelry Type: ED Notes Filed: 08/27/2020 3:03 PM Note Text: Pt arrives in ED with a c/o left sided flank pain that started suddenly at 0600 this am. Pt has a hx of kidney stones. [facility] ED PROV NOTEon 08-27-2020 ED PROV NOTE HNO ID: [id number] Author: Birdie Angel (Pa) Service: Emergency Medicine Author Type: Physician Brazing Machine Operator Type: ED Provider Notes Filed: 08/27/2020 6:22 PM Note Text: ED Provider Note Patient Name: Bhavana Hicks SERVICE DATE: 08/27/20 History Patient presents with: Flank Pain Nausea AND Vomiting HPI Patient is a 40 y/o female presenting to the ED c/o left sided flank pain. PMHx significant for fibromyalgia, gastric tumor s/p resection. Patient is here visiting from [place]. She reports acute onset of left sided flank pain that radiates into the abdomen around 6AM. She describes persistent pain throughout the day. She has associated nausea/vomiting. She states her last kidney stone was 6 months ago in [place]. She has required a lithotripsy in the past. She has not been able to eat or drink much today. She states this pain feels similar to prior kidney stones. She denies fever/chills, chest pain, shortness of breath, diarrhea, hematuria, dysuria, urinary frequency/urgency, weakness or dizziness. She denies trauma or injury. PAST MEDICAL HISTORY Diagnosis Date - Fibromyalgia - Gastric tumor s/p resection - Kidney stones No past surgical history on file. No family history on file. Social History Tobacco Use - Smoking status: Not on file Substance and Sexual Activity - Alcohol use: Not on file - Drug use: Not on file - Sexual activity: Not on file ALLERGIES No Known Allergies Review of Systems Constitutional: Negative for chills and fever. HENT: Negative for congestion and rhinorrhea. Eyes: Negative for visual disturbance. Respiratory: Negative for shortness of breath. Cardiovascular: Negative for chest pain. Gastrointestinal: Positive for abdominal pain, nausea and vomiting. Genitourinary: Positive for flank pain. Negative for frequency, hematuria and urgency. Musculoskeletal: Negative for back pain and neck pain. Skin: Negative for rash. Neurological: Negative for dizziness, weakness, light-headedness and headaches. Hematological: Does not bruise/bleed easily. Psychiatric/Behavioral: Negative for agitation, behavioral problems and confusion. Physical Exam BP 146/85 Pulse 76 Temp (Src) 98.6 (Oral) Resp 18 Ht 5' 2 (1.58m) Wt 175 lb (79.4kg) SpO2 98% BMI 32.00 kg/(m2). O2 Therapy: Room Air Physical Exam Constitutional: General: She is in acute distress (due to pain). Appearance: She is well-developed. HENT: Head: Normocephalic and atraumatic. Eyes: Extraocular Movements: Extraocular movements intact. Pupils: Pupils are equal, round, and reactive to light. Cardiovascular: Rate and Rhythm: Normal rate and regular rhythm. Heart sounds: Normal heart sounds. Pulmonary: Effort: Pulmonary effort is normal. Breath sounds: Normal breath sounds. No wheezing, rhonchi or rales. Abdominal: General: Abdomen is flat. Bowel sounds are normal. Palpations: Abdomen is soft. Tenderness: There is abdominal tenderness in the left lower quadrant. There is left CVA tenderness. There is no right CVA tenderness, guarding or rebound. Negative signs include Hogan's sign and McBurney's sign. Genitourinary: Comments: Deferred. Musculoskeletal: Back: Skin: General: Skin is warm and dry. Capillary Refill: Capillary refill takes less than 2 seconds. Findings: No rash. Neurological: General: No focal deficit present. Mental Status: She is alert and oriented to person, place, and time. Psychiatric: Mood and Affect: Mood normal. Behavior: Behavior normal. Diagnostic Testing ED Labs Ordered and Reviewed CBC + AUTO DIFF (AK,AV,EU,FV,HL,JEANNE,MM,SP) - Abnormal; Notable for the following components: Result Value Ref Range WBC 14.64 (*) 3.70 - 11.00 k/uL Abs Neut (ANC) 13.16 (*) 1.45 - 7.50 k/uL Abs Lymph 0.80 (*) 1.00 - 4.00 k/uL All other components within normal limits COMPREHENSIVE METABOLIC PANEL (AK,AV,EU,FV,HL,JEANNE,MM,SP) - Abnormal; Notable for the following components: Albumin 5.1 (*) 3.9 - 4.9 g/dL Glucose 117 (*) 74 - 99 mg/dL All other components within normal limits URINALYSIS WITH MICROSCOPIC (AK,AV,EU,FV,HL,JEANNE,MM,SP) - Abnormal; Notable for the following components: Color Yellow (*) Yellow Ketones, Urine 1+ (*) Negative Hemoglobin/Blood,Ur 3+ (*) Negative Protein, Urine 1+ (*) Negative RBC, Urine 100+ (*) 0 - 3 /HPF All other components within normal limits HCG URINE - ED(POC) - Normal URINE CULTURE (AK,AV,EU,FV,HL,JEANNE,MM,SP) CT FLANK WO IVCON Final Result IMPRESSION: Mild LEFT hydronephrosis and borderline hydroureter probably secondary to LEFT ureteral calculus although the LEFT hydroureter may extend slightly inferior to the calculus suggesting downstream ureteral narrowing due to edema or less likely other etiologies. There is bilateral punctate nephrolithiasis. Transcribed Using Voice Recognition Transcribe Date/Time: Aug 27 2020 5:16P Dictated by: JUAN CARLOS SULLIVAN MD This examination was interpreted and the report reviewed and electronically signed by: JUAN CARLOS SULLIVAN MD on Aug 27 2020 5:27PM EST Procedures ED Course / Clinical Impression Clinical Impressions as of Aug 27 1821 Left flank pain Non-intractable vomiting with nausea, unspecified vomiting type Kidney stone Hydronephrosis, unspecified hydronephrosis type MDM / Disposition / Plan MDM Vital signs were reviewed. Triage records were reviewed. Medical records were reviewed. Nursing notes were reviewed and incorporated. The following medications were administered: Toradol, Zofran, Percocet Radiographs were reviewed: CT flank Initial VS: BP 146/85 Pulse 76 Temp 37 ?C (98.6 ?F) (Oral) Resp 18 Ht 157.5 cm (5' 2 ) Wt 79.4 kg (175 lb) SpO2 98% BMI 32.01 kg/m? 40 year old female presents with left sided flank pain, hx of kidney stones. Pt is afebrile, non-toxic and hemodynamically stable. Pt does appear to be in acute distress due to pain. Physical exam reveals left CVA tenderness and LLQ tenderness without peritoneal signs. No rebounding or guarding. Exam otherwise unremarkable. Labs and imaging obtained. CBC with leukocytosis WBC 14.64, ANC 13.16 (likely reactive), HANDH stable. CMP significant for albumin 5.1, glucose 117. BUN/Cr wnl. Hcg negative. UA micro shows 1+ ketones, 3+ hgb, 1+ protein, negative leuks/nitrites, 100+ RBC. Urine culture pending. CT flank shows mild left hydronephrosis and borderline hydroureter probably secondary to left ureteral calculus, bilateral punctate nephrolithiasis. Pt given IVF, Toradol and Zofran. Pt given additional Percocet for pain control. Upon re-assessment, symptoms have improved. She is able to tolerate PO. Discussed case and reviewed labs/urinalysis and CT flank with Urology, Dr. Mcclelland. Will hold off on antibiotics at this time. Pt stable for discharge home with close follow up. At this time, the most likely Dx is left flank pain, nausea/vomiting, left sided kidney stone, hydronephrosis. Other Dxs considered but unlikely d/t HANDP, labs and imaging findings. Low suspicion for secondary infection or acute kidney injury at this time. Likely will pass stone on her own. Pt discharged home d/t good condition, given Rx for Flomax, Toradol, Percocet, Zofran. Discussed side effects. OARRS reviewed. Pt instructed to f/u with Urology 2-3 days and encouraged to return if symptoms worsen or if new symptoms develop. Patient expressed understanding and consented to the above plan. No barriers of communication were apparent and I answered all questions. The patient was DISCHARGED: Counseled patient regarding lab results AND radiology results AND suspected diagnosis AND need for follow-up. Discharged home with verbal and written instructions. They were instructed to return as needed for persistent or worsening symptoms or any new concerns. Condition at time of disposition: stable SIGNATURE: FRIEDA Ospina (Pa) 08/27/201821 Normal [facility] Urinalysis with Microscopico n 08-27-2020 Bilirubin, Urine Negative Normal Negative [facility] Clarity (U) Clear Normal Clear [facility] Color (U) Yellow Critically abnormal Yellow [facility] Epithelial cells LM.HPF (Urine sed) [#/Area] SEE COMMENT Normal [facility] Comment on above: Result Comment: Occa sional Squamous Epithelial Cells Glucose Ql (U) Negative Normal Negative [facility] Hemoglobin/Blood, Ur 3+ Critically abnormal Negative [facility] Ketones Ql (U) 1+ Critically abnormal Negative [facility] Leukest Negative Normal Negative [facility] Nitrite Ql (U) Negative Normal Negative [facility] pH (Bld) 6.0 Normal 5.0-8.0 [facility] Protein (U) [Mass/Vol] 1+ Critically abnormal Negative [facility] RBC 100+ /HPF Critically abnormal 0-3 [facility] Specific [place], Ur 1.022 Normal 1.005-1.030 [facility] Urine, Other FOR EAST USE ONLY SEE COMMENT Normal [facility] Comment on above: Result Comment: 1+ Mucous Urobilinogen Qn (U) Negative Normal [facility] WBC (Bld) [#/Vol] 0-5 Normal 0-5 [facility] Urine Cultureon 08-27-2020 Bacteria identified Cx Nom (U) Sp. Request/Comment: - Specimen received in preservative Culture Result - <10,000 CFU/ml Normal urogenital khadar Normal [facility] Comment on above: Performed By: #### U RCUL #### [facility] [address] [place], [place] [address] MRI KNEE W/O CONTRASTon 05-28 MRI KNEE W/O CONTRAST Patient Name: BHAVANA HICKS STUDY: MRI of the right knee without IV contrast; 06/11/2019 11:03 am INDICATION: pain, difficult to walk. COMPARISON: Knee radiographs dated 05/21/2019. ACCESSION NUMBER(S): [id number] ORDERING CLINICIAN: GRACIELA LOVEALCE TECHNIQUE: MR imaging of the right knee was obtained without IV contrast. FINDINGS: LIGAMENTS AND TENDONS: The anterior cruciate ligament and the posterior cruciate ligaments are intact. The medial collateral ligament is intact. The lateral collateral ligament, the biceps femoris tendon, the popliteus tendon and the iliotibial band are intact. The quadriceps tendon and the patellar tendon are intact. MENISCI: The medial meniscus is intact and without evidence of tear. The lateral meniscus is intact and without evidence of tear. JOINTS: There is low-grade articular cartilage fissuring of the medial femoral condyle with underlying marrow reactive changes. The articular cartilage of the lateral femoral condyle and lateral tibial plateau is intact and without evidence of full thickness defect. The patellofemoral articulation is intact and without evidence of subluxation or articular cartilage defect. No evidence of significant joint effusion or popliteal cyst. OSSEOUS STRUCTURES: There is a slightly shallow and dysplastic morphology of the superior femoral trochlea. No focal marrow replacing lesions are identified. There is no fracture. SOFT TISSUES: A 1.7 x 1.0 x 1.8 T2 hyperintense, T1 hypointense cystic collection is seen in Hoffa's fat pad, intimately associated with the transverse meniscal ligament. A small volume of fluid is seen deep to the pes anserinus tendons near their insertion on the tibia, consistent with bursitis. There is no muscle atrophy or tear. The common peroneal nerve is intact. IMPRESSION: 1. Probable ganglion cyst in Hoffa's fat pad intimately associated with the transverse meniscal ligament. No definite meniscal tear is visualized to suggest a parameniscal cyst. 2. Low grade articular cartilage fissuring of the medial femorotibial compartment with underlying marrow reactive changes. 3. Small volume pes anserinus bursitis. 4. Slightly dysplastic and shallow superior femoral trochlea. Electronically signed by: SAMANTHA ESPINOZA MD [facility] Mae 06-11-2019 Interpreted by: SAMANTHA WHALEND1 18:03MRN: [id number] Name: BHAVANA HICKS STUDY:MRI of the right knee without IV contrast; 06/11/2019 11:03 am INDICATION:pain, difficult to walk. COMPARISON:Knee radiographs dated 05/21/2019. ORDERING CLINICIAN:GRACIELA LOVELACE TECHNIQUE:MR imaging of the right knee was obtained without IV contrast. FINDINGS:LIGAMENTS AND TENDONS:The anterior cruciate ligament and the posterior cruciate ligamentsare intact. The medial collateral ligament is intact. The lateralcollateral ligament, the biceps femoris tendon, the popliteus tendonand the iliotibial band are intact. The quadriceps tendon and thepatellar tendon are intact. MENISCI:The medial meniscus is intact and without evidence of tear.The lateral meniscus is intact and without evidence of tear. JOINTS:There is low-grade articular cartilage fissuring of the medialfemoral condyle with underlying marrow reactive changes.The articular cartilage of the lateral femoral condyle and lateraltibial plateau is intact and without evidence of full thicknessdefect.The patellofemoral articulation is intact and without evidence ofsubluxation or articular cartilage defect.No evidence of significant joint effusion or popliteal cyst. OSSEOUS STRUCTURES:There is a slightly shallow and dysplastic morphology of the superiorfemoral trochlea. No focal marrow replacing lesions are identified.There is no fracture. SOFT TISSUES:A 1.7 x 1.0 x 1.8 T2 hyperintense, T1 hypointense cystic collectionis seen in Hoffa's fat pad, intimately associated with the transversemeniscal ligament.A small volume of fluid is seen deep to the pes anserinus tendonsnear their insertion on the tibia, consistent with bursitis.There is no muscle atrophy or tear.The common peroneal nerve is intact. IMPRESSION:1. Probable ganglion cyst in Hoffa's fat pad intimately associatedwith the transverse meniscal ligament. No definite meniscal tear isvisualized to suggest a parameniscal cyst.2. Low grade articular cartilage fissuring of the medial femorotibialcompartment with underlying marrow reactive changes.3. Small volume pes anserinus bursitis.4. Slightly dysplastic and shallow superior femoral trochlea.Electronically signed by: SAMANTHA ESPINOZA 06/11/19 18:03 [facility] [employer] Work Phone: Hematologyon 05-21-2019 Hematocrit (Bld) [Volume fraction] 42.50 % See Below TL[facility]emu[facility] Work Phone: Comment on above: Reference Range: 36. 60-46.60 Hemoglobin (Bld) [Mass/Vol] 13.90 g/dL See Below AD-Xgqw-BqjhocM[facility] Work Phone: Comment on above: Reference Range: 12. 00-15.40 Lymphocytes (Bld) [#/Vol] 2.30 {#} 0.00-6.00 GP-Lojq-NoexbkM[facility] Work Phone: Lymphocytes/100 WBC (Bld) 27.70 % See Below GM-Lntw-AwrjbtM[facility] Work Phone: Comment on above: Reference Range: 20. 50-51.10 MCH (RBC) [Entitic mass] 32.30 pg above high threshold See Below UR-Kvwh-SmpttkM[facility] Work Phone: Comment on above: Reference Range: 26. 00-32.00 RBC (Bld) [#/Vol] 4.32 10*6/uL 3.90-5.30 [facility] Work Phone: WBC (Bld) [#/Vol] 8.40 10*3/uL 4.50-10.50 [facility]zyV[facility] San DiegoShoozyFl[facility] Work Phone: KNEE, 3 VIEWSon 05-21-2019 KNEE, 3 VIEWS Patient Name: BHAVANA HICKS STUDY: KNEE; 3 VIEWS INDICATION: pain. COMPARISON: None ACCESSION NUMBER(S): [id number] ORDERING CLINICIAN: GRACIELA LOVELACE FINDINGS: Three views right knee demonstrate no osseous, articular, or soft tissue abnormality. IMPRESSION: Normal exam. Electronically signed by: YESSENIA YEBOAH MD Normal [facility] Metabolic Panelon 05-21-2019 Anion gap [Moles/Vol] 11.2 mmol/L 10.0-20.0 [employer] Work Phone: Calcium [Mass/Vol] 8.8 mg/dL 8.5-10.1 [employer] Work Phone: Chloride [Moles/Vol] 103.0 mmol/L 98.0-107.0 [employer] Work Phone: CO2 [Moles/Vol] 29.8 mmol/L 21.0-32.0 [employer] Work Phone: Creatinine [Mass/Vol] 0.7 mg/dL 0.6-1.3 [employer] Work Phone: GFR/1.73 sq M predicted among non-blacks MDRD (S/P/Bld) [Vol rate/Area] 94.18 mL/min/{1.73_m2} [employer]-F ried [employer] Work Phone: Comment on above: If a patient is Afri an-Dominican, multipy result by 1.21. Result units are mL/min/1.73m2. A GFR of <60 may indicate CKD. Glucose [Mass/Vol] 85.0 mg/dL 74.0-106.0 [employer] Work Phone: Potassium [Moles/Vol] 4.0 mmol/L 3.5-5.1 LW-Nlsk-Lihuei [employer] Work Phone: Sodium [Moles/Vol] 140.0 mmol/L See Below PQ-Vrbx-Zrrdvv [employer] Work Phone: Comment on above: Reference Range: 136 .0-145.0 Urea nitrogen/Creatini ne [Mass ratio] 31.9 {#} 8.0-36.0 SS-Jvah-Iboljq [employer] Work Phone: Othergreer 05-21-2019 XR Knee 3 views Interpreted by: CASSIUS YEBOAH05/22/19 19:36MRN: [id number] Name: BHAVANA HICKS STUDY:KNEE; 3 VIEWS INDICATION:pain. COMPARISON:None ORDERING CLINICIAN:GRACIELA LOVELACE FINDINGS:Three views right knee demonstrate no osseous, articular, or softtissue abnormality. IMPRESSION:Normal exam.Electronically signed by: YESSENIA YEBOAH 05/22/19 19:36 Normal NL-Dswe-ZgqflqEndoSphere Work Phone: Erythrocyte distribution width (RBC) [Ratio] 13.00 % See Below PS-Euzz-DflwztRa [employer] Phone: Comment on above: Reference Range: 11. 50-14.50 MCHC (RBC) [Mass/Vol] 32.80 g/dL See Below AE-Ogfb-Uqsepj [employer] Work Phone: Comment on above: Reference Range: 31. 00-38.00 Platelet mean volume (Bld) [Entitic vol] 6.80 fL below low threshold 7.80-11.00 TN-Zwjc-Bxnkud [employer] Work Phone: 0.2 E.U./dL 0.20-1.00 ZE-Qlat-Pzlsp [employer] Work Phone: Negative Negative IH-Umrq-Qcyigc [employer] Work Phone: Yellow See Below FD-Ulrg-Pcagmj [employer] Work Phone: Comment on above: Reference Range: yel low, straw 5.70 {#} 1.40-6.50 CT-Xzbm-Anartl [employer] Work Phone: 98.50 fl above high threshold See Below ZX-Uees-Shkwqm [employer] Work Phone: Comment on above: Reference Range: 80. 00-96.00 1.025 XB-Ufbu-Mrawnt [employer] Work Phone: 266.00 fl See Below VV-Zkaz-Lflrxu [employer] Work Phone: Comment on above: Reference Range: 150 .00-450.00 4.30 % 1.70-9.30 BQ-Mwyq-Zcijka [employer] Work Phone: 68.00 % See Below KB-Lisx-Jzcbck [employer] Work Phone: Comment on above: Reference Range: 42. 20-75.20 6.0 5.0-8.0 SG-Hgtu-Noxrvo [employer] Work Phone: 0.40 {#} 0.10-1.60 EV-Zhwl-Jacujf [employer] Work Phone: 22.0 mg/dl above high threshold 7.0-18.0 RP-Ajmo-Gwgcfz [employer] Work Phone: XR Knee 3 views Please click on the link to view the study images Normal JK-Nlss-Fpehff [employer] Work Phone: Urinalysison 05-21-2019 Appearance (U) Clear clear MP-Chong-Fr iedm [employer] Work Phone: Protein (U) [Mass/Vol] Negative Negative QR-Uiyg-Njomvo [employer] Work Phone: LYME AB SCREEN + REFLEX TO I MMUNOBLOT; >4 WKS POST SYMPTOMSon 04-21-2019 LYME ANTIBODIES SCREEN 0.44 SONIA Normal 0.00-1.20 [facility] Comment on above: Result Comment: When the Borrelia burgdorferi Abs, Total by ROSALIE result is negative, no further testing is done. INTERPRETIVE INFORMATION: Borrelia Burgdorferi Abs,Total by ROSALIE 0.99 SONIA or Less: ...... Negative: Antibody to B. burgdorferi not detected. 1.00 - 1.20 SONIA......... Equivocal: Repeat testing in 10-14 days may be helpful. 1.21 SONIA or Greater: ... Positive: Probable presence of antibody to B. burgdorferi detected. Performed by [address], [address] [place] [address] www.[email or web address], Camden Monson MD - Lab. Director Performed By: #### L YMLD #### [facility] [address] [place] [address] FERRITINon 04-19-2019 Ferritin [Mass/Vol] 86 ug/L Normal 8 - 150 [facility] Comment on above: Performed By: #### F ERRI #### [facility] [address] [place] [address] IRON + TIBCon 04-19-2019 % SATURATION 26 % Normal 25 - 45 [facility] Comment on above: Performed By: #### I RONT #### [facility] [address] [place] [address] Iron [Mass/Vol] 80 ug/dL Normal 35 - 150 [facility] Comment on above: Performed By: #### I RONT #### [facility] [address] [place] [address] TIBC 310 ug/dL Normal 240 - 445 [facility] Comment on above: Performed By: #### I RONT #### [facility] [address] [place] [address] Otheron 04-19-2019 Cobalamin (Vitamin B12) [Mass/Vol] 1152.00 pg/mL See Below [employer] pr[facility]Cause[facility] Work Phone: Comment on above: Reference Range: 80. 00-2000.00The FDA requires that physicians be alerted to the fact that high doses of Biotin and Biotin supplements may interfere with this test s methodology on the Siemens EXL. If results do no match expected values or meet clinical presentation, please repeat after discussing possible Biotin usage with patient. [facility]acon 04-18-2019 Cholesterol [Mass/Vol] 212.0 mg/dL above high threshold 0.0-200.0 AH-Itgc-Oceopm [employer] Work Phone: Comment on above: This LDL value is me asured directly. Cholesterol in LDL [Mass/Vol] 144.0 mg/dL above high threshold 0.0-100.0 LE-Gntm-Lvbbrp [employer] Work Phone: Comment on above: This LDL value is me asured directly. Ferritin, Serumon 04-18-2019 Ferritin [Mass/Vol] 86 ug/L 8 - 150 CD-Zago-Gfdkhs [employer] Work Phone: Hematologyon 04-18-2019 Hematocrit (Bld) [Volume fraction] 43.70 % See Below EY-Wttl-WwufxrEndoSphere Work Phone: Comment on above: Reference Range: 36. 60-46.60 Hemoglobin (Bld) [Mass/Vol] 14.70 g/dL See Below KJ-Pigf-Hwgzrw [employer] Work Phone: Comment on above: Reference Range: 12. 00-15.40 Lymphocytes (Bld) [#/Vol] 2.50 {#} 0.00-6.00 PQ-Yjnd-XjgrxhEndoSphere Work Phone: Lymphocytes/100 WBC (Bld) 28.90 % See Below [employer] Phone: Comment on above: Reference Range: 20. 50-51.10 MCH (RBC) [Entitic mass] 32.80 pg above high threshold See Below YW-Kagc-Zicpdl [employer] Phone: Comment on above: Reference Range: 26. 00-32.00 RBC (Bld) [#/Vol] 4.48 10*6/uL 3.90-5.30 [facility] EnterprisesFriedK[facility] Work Phone: WBC (Bld) [#/Vol] 8.50 10*3/uL 4.50-10.50 [facility]zy OlgaK[facility] Work Phone: Metabolic Panelon 04-18-2019 Albumin [Mass/Vol] 3.9 g/dL 3.4-5.0 SD-Zwjc-GtmpunFlint River Hospital Work Phone: ALP [Catalytic activity/Vol] 76.0 U/L 46.0-116.0 UJ-Ghrc-OkuzwdFlint River Hospital Work Phone: Anion gap [Moles/Vol] 15.3 mmol/L 10.0-20.0 SS-Xtjc-CoawudFlint River Hospital Work Phone: Bilirubin [Mass/Vol] 0.2 mg/dL 0.2-1.0 UH-Hafo-WyysdtFlint River Hospital Work Phone: Calcium [Mass/Vol] 9.1 mg/dL 8.5-10.1 OZ-Tuax-EgthlaFlint River Hospital Work Phone: Chloride [Moles/Vol] 104.0 mmol/L 98.0-107.0 MZ-Toob-QfwvuuFlint River Hospital Work Phone: CO2 [Moles/Vol] 27.7 mmol/L 21.0-32.0 ShoozyChongShoozy [facility] Work Phone: Creatinine [Mass/Vol] 0.7 mg/dL 0.6-1.3 SJ-Qcjr-ManrecFlint River Hospital Work Phone: GFR/1.73 sq M predicted among non-blacks MDRD (S/P/Bld) [Vol rate/Area] 89.71 mL/min/{1.73_m2} NISREENChong-F tessKettering [facility] Work Phone: Comment on above: If a patient is Afri an-Dominican, multipy result by 1.21. Result units are mL/min/1.73m2. A GFR of <60 may indicate CKD. Glucose [Mass/Vol] 88.0 mg/dL 74.0-106.0 WT-Rafp-Sewfsr [employer] Work Phone: Potassium [Moles/Vol] 4.0 mmol/L 3.5-5.1 QV-Odun-Uzvbbp [employer] Work Phone: Sodium [Moles/Vol] 143.0 mmol/L See Below NY-Xvzt-Czsewo [employer] Work Phone: Comment on above: Reference Range: 136 .0-145.0 Urea nitrogen [Mass/Vol] 16.0 mg/dL 7.0-18.0 AI-Rbri-Acxmbd [facility] [facility] Work Phone: Iron [Mass/Vol] 80 ug/dL 35 - 150 [facility] HoldingsVinayak bishop [employer] SolutionsThe [facility] Work Phone: Otheron 04-18-2019 Erythrocyte distribution width (RBC) [Ratio] 12.70 % See Below TW-Ickb-Yvntye [facility] Work Phone: Comment on above: Reference Range: 11. 50-14.50 MCHC (RBC) [Mass/Vol] 33.60 g/dL See Below ZL-Cqcs-Xdenul [facility] Work Phone: Comment on above: Reference Range: 31. 00-38.00 Platelet mean volume (Bld) [Entitic vol] 7.20 fL below low threshold 7.80-11.00 XY-Gkpl-Ccrcqe [employer] Work Phone: 5.70 {#} 1.40-6.50 JU-Aqzo-Rnvmog [employer] Work Phone: Negative Negative YE-Pmil-Lvmihi [employer] Work Phone: 0.2 E.U./dL 0.20-1.00 KY-Yvvp-Hqsnb m [facility] SolutionsThe [facility] Work Phone: 5.5 5.0-8.0 AU-Xbko-Vbiyds [employer] Work Phone: Trace-intact Abnormal Negative NX-Wgrn-Efrq dm [employer] Work Phone: 1.025 DG-Pdsy-Fbvtzf [employer] Work Phone: 1.2 {#} PU-Xvht-Dlurmx [employer] Work Phone: 26.0 U/L 12.0-78.0 QV-Bsjh-Mhdvvf [employer] Work Phone: 15.0 U/L 15.0-37.0 SW-Vhyl-Sqssbh [employer] Work Phone: Yellow See Below VB-Jonx-Wlkyve [employer] Work Phone: Comment on above: Reference Range: yel low, straw 97.60 fl above high threshold See Below TM-Yoem-Zybgtd [employer] Work Phone: Comment on above: Reference Range: 80. 00-96.00 0.40 {#} 0.10-1.60 XK-Xlnz-Lajpru [employer] Work Phone: 7.1 g/dl 6.4-8.2 AH-Obys-Ukqxfc [employer] Work Phone: 66.80 % See Below NN-Itxy-Ozskfl [employer] Work Phone: Comment on above: Reference Range: 42. 20-75.20 4.30 % 1.70-9.30 FB-Itgv-Jivaai [employer] Work Phone: 45.0 mg/dl 40.0-60.0 HA-Tfqw-Uyofim [employer] Work Phone: Comment on above: This LDL value is me asured directly. 82.0 mg/dl 0.0-200.0 WW-Pdqm-Udpxar [facility] Work Phone: Comment on above: This LDL value is me asured directly. 268.00 fl See Below TM-Aspm-KojmgkRissa [employer] Work Phone: Comment on above: Reference Range: 150 .00-450.00 B. burgdorferi Ab IA Qn (S) 0.44 {SONIA} 0.00-1.20 OX-Ajdm-Ypylxo [facility]The [facility] Work Phone: Comment on above: When the Borrelia bu rgdorferi Abs, Total by ROSALIE result is negative, no further testing is done.INTERPRETIVE INFORMATION: Borrelia Burgdorferi Abs,Total by ROSALIE 0.99 SONIA or Less: ...... Negative: Antibody to B. burgdorferi not detected. 1.00 - 1.20 SONIA......... Equivocal: Repeat testing in 10-14 days may be helpful. 1.21 SONIA or Greater: ... Positive: Probable presence of antibody to B. burgdorferi detected.Performed by [facility], [address] [place] [id number] [email or web address], Camden Monson MD - Lab. Director Iron binding capacity [Mass/Vol] 310 ug/dL 240 - 445 LC-Rpln-Aisxdk [facility] Work Phone: 26 % 25 - 45 BH-Qlis-TswwuqPatrick shahThe [facility] Work Phone: Thyroidon 04-18-2019 TSH Qn 1.7 {uIU/L} 0.4-4.5 AI-Ouif-Pwspg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
[2023-10-03] MEDS: BACITRACIN 0.9 GM PACKET 1 PACKET TOPICAL (14:06)
--- NOTE | 2023-10-03 14:16 | ED.GENADUL1 ---
HPI - General Adult General Chief complaint: Skin/Abscess/Foreign Body Stated complaint: skin/other Time Seen by Provider: 10/03/23 13:41 Source: patient Mode of arrival: walk-in Limitations: no limitations History of Present Illness HPI narrative: Patient Is a 43-year-old female who presents to the emergency department for redness and swelling in the right index finger. Patient sustained a dog bite to the palmar aspect of the right index finger On 09/16/2023. She was seen at urgent care, no suture repair was done and she was prescribed Augmentin. She apparently was not able to get this antibiotic for 2 days and was seen in this emergency department on 09/18/2023 with diffuse swelling and redness. She was admitted for IV antibiotics. She completed a course of Augmentin 3 to 4 days ago and states in the last several days she has noticed a small increase in redness and swelling to the area. She has had no fevers or vomiting. She continues to have an open wound over the PIP joint, palmar aspect of the right index finger. There is no drainage or purulence.She is not concerned for . Related Data Home Medications Medication Instructions Recorded Confirmed amlodipine 5 mg tablet 5 mg PO DAILY 09/18/23 09/18/23 buspirone 15 mg tablet 15 mg PO BID 09/18/23 09/18/23 duloxetine 30 mg capsule,delayed 30 mg PO BID 09/18/23 09/18/23 release (Cymbalta) amoxicillin 875 mg-potassium 1 tab PO BID 09/19/23 09/19/23 clavulanate 125 mg tablet Previous Rx's Medication Instructions Recorded cefuroxime axetil 500 mg tablet 500 mg PO BID 10 days #20 tabs 10/03/23 clindamycin HCl 150 mg capsule 300 mg (2 x 150 mg) PO Q8H 10 days 10/03/23 #60 caps ondansetron 4 mg disintegrating 4 mg PO Q6H PRN nausea and 10/03/23 tablet vomiting #12 tabs oxycodone-acetaminophen 5 mg-325 1 tab PO Q6H PRN pain 3 days #12 10/03/23 mg tablet (Percocet) tabs Allergies Allergy/AdvReac Type Severity Reaction Status Date / Time No Known Drug Allergies Allergy Verified 09/18/23 09:13 Review of Systems ROS Constitutional Denies: fever or chills Ears, nose, mouth, and throat Denies: throat pain or nasal congestion Cardiovascular Denies: chest pain Respiratory Denies: shortness of breath Gastrointestinal Denies: nausea or vomiting Musculoskeletal Reports: extremity pain, extremity swelling and joint pain; Denies: back pain or neck pain Integumentary/Breast Reports: redness, skin pain, skin tenderness and skin swelling; Denies: rash Neurological Denies: headache Hematologic/Lymphatic Denies: easy bruising or easy bleeding PFSH PFS Medical History (Updated 10/03/23 @ 14:10 by SAMARA Mulligan) Hypertension ?I10 - Essential (primary) hypertension (ICD-10) Cellulitis ?L03.90 - Cellulitis, unspecified (ICD-10) ADHD ?F90.9 - Attention-deficit hyperactivity disorder, unspecified type (ICD-10) Anxiety ?F41.9 - Anxiety disorder, unspecified (ICD-10) Fibromyalgia ?M79.7 - Fibromyalgia (ICD-10) Surgical History (Updated 09/18/23 @ 11:53 by Bridget West) H/O lithotripsy ?Z98.890 - Other specified postprocedural states (ICD-10) Breast tumor ?D49.3 - Neoplasm of unspecified behavior of breast (ICD-10) History of partial gastrectomy ?Z90.3 - Acquired absence of stomach [part of] (ICD-10) Family History (Updated 09/18/23 @ 11:54 by Bridget West) Mother Family history of stroke Father Family history of myocardial infarction Family history of hypertension Social History Within the past year, how often did you have a drink containing alcohol: 2-3 times a week Within the past year, how many standard drinks containing alcohol did you have on a typical day: 1 or 2 Within the past year, how often did you have six or more drinks on one occasion: never Total score: 0 Score interpretation: Questions 2 and 3 are 0. It can be assumed that the patient's drinking is below the recommended limits. However, please confirm the accuracy of the patient's alcohol intake over the last few months. Smoking status: Former smoker Non-prescribed substance use: denies use Previous occupational history: unemployed Highest level of school completed/degree received: Associate degree: academic program Are you now , , , , never or living with a partner: Little interest or pleasure in doing things: not at all Feeling down, depressed, or hopeless: not at all Feel stressed/tense/nervous/anxious/difficulty sleeping: not at all Exam Narrative Exam Narrative: Gen.: Awake, alert, in no distress Head: Normocephalic, atraumatic ENT: Moist mucous membranes Respiratory: No respiratory distress Extremities: Right index finger with a 0.75 cm open wound on the palmar aspect of the finger. This is over the PIP joint. There is no purulence or drainage from the area. Mild swelling noted on the palmar aspect of the finger with no fusiform swelling. No red streaking or tenderness of the proximal palm of the hand. Range of motion is limited by swelling and slightly by pain. No evidence of tendon deficit. Psych: Normal mood and affect Neuro: No focal neuro deficit Skin: Warm, dry Constitutional Vital Signs, click to edit/add: Last Vital Signs Temp 98.2 F 10/03/23 13:44 Pulse 94 H 10/03/23 13:44 Resp 16 10/03/23 13:44 BP 127/96 H 10/03/23 13:44 Pulse Ox 97 10/03/23 13:44 O2 Del Method Room Air 10/03/23 13:44 Course Vital Signs Vital signs: Vital Signs Temperature 98.2 F 10/03/23 13:44 Pulse Rate 94 H 10/03/23 13:44 Respiratory Rate 16 10/03/23 13:44 Blood Pressure 127/96 H 10/03/23 13:44 Pulse Oximetry 97 10/03/23 13:44 Oxygen Delivery Method Room Air 10/03/23 13:44 Temperature 98.2 F 10/03/23 13:44 Pulse Rate 94 H 10/03/23 13:44 Respiratory Rate 16 10/03/23 13:44 Blood Pressure 127/96 H 10/03/23 13:44 Pulse Oximetry 97 10/03/23 13:44 Oxygen Delivery Method Room Air 10/03/23 13:44 Medical Decision Making MDM Narrative Medical decision making narrative: Patient had x-rays performed on previous visit. There is no purulence or abscess noted. Patient was reexamined by attending physician who saw her on her previous ER visit, he feels the redness and swelling is significantly better than when she was admitted. Patient will be retreated with additional antibiotics. I did discuss the case with Dr. Bullard who is in agreement with seeing the patient in the office. She will be seen at the [place] office on Monday, we contacted the office to facilitate the appointment. Patient started on cefuroxime and clindamycin for different antibiotic coverage as well as Zofran and Percocet as needed for pain. Bacitracin, dressing and splint were applied and the patient remains neurovascularly intact. At this time we do not have significant suspicion for flexor tenosynovitis. Patient was encouraged to return to the ER if symptoms change or worsen. Medical Records Medical records reviewed: Yes I reviewed the patient's medical records Discharge Plan Discharge Chief Complaint: Skin/Abscess/Foreign Body Clinical Impression: Cellulitis of finger of right hand Patient Disposition: Home, Self-Care Time of Disposition Decision: 14:10 Condition: Good Prescriptions / Home Meds: New cefuroxime axetil 500 mg tablet 500 mg PO BID 10 Days Qty: 20 0RF clindamycin HCl 150 mg capsule 300 mg PO Q8H 10 Days Qty: 60 0RF oxycodone-acetaminophen [Percocet] 5-325 mg tablet 1 tab PO Q6H PRN (Reason: pain) 3 Days Qty: 12 0RF Rx Instructions: DX: M79.641 ondansetron 4 mg tablet,disintegrating 4 mg PO Q6H PRN (Reason: nausea and vomiting) Qty: 12 0RF No Action duloxetine [Cymbalta] 30 mg capsule,delayed release(DR/EC) 30 mg PO BID buspirone 15 mg tablet 15 mg PO BID amlodipine 5 mg tablet 5 mg PO DAILY amoxicillin-pot clavulanate 875-125 mg tablet 1 tab PO BID Instructions: Cellulitis (ED) Additional Instructions: Dr. Bullard's office will contact you for scheduling; please follow up on Monday10/06/23 in the [place] office Stand Alone Forms: Portal Instructions Referrals: Physician,Non-Staff, [Primary Care Provider] - 1 week Roverto Bullard MD [Physician] - 10/06/23 ([facility] [place] [address])
== END 2023-10-03 14:22 | disposition home or self-care (01) ==
PROVIDERS: Emergency Provider Emergency Medicine
DX: L03.011 Cellulitis of right finger (principal); I10 Essential (primary) hypertension; F90.9 Attention-deficit hyperactivity disorder, unspecified type; F41.9 Anxiety disorder, unspecified; M79.7 Fibromyalgia; Z98.890 Other specified postprocedural states; Z79.899 Other long term (current) drug therapy; Z90.3 Acquired absence of stomach [part of]; Z87.891 Personal history of nicotine dependence
CPT/HCPCS: 29130; 99283

== ENCOUNTER 2023-12-05 16:20 | Outpatient (OUT) | payer MEDICAID, SELFPAY ==
--- NOTE | 2023-12-05 17:00 | MM_ITS ---
Patient Name: ALFIE HICKS MR#: [id number] : 1980 Exam Date: 12/05/2023 Ordering Doctor: Shaikh Igor Denton . RADIOLOGY REPORT PROCEDURE: MM TOMOSYNTHESIS SCREENING BI COMPARISON: None. INDICATIONS: Encounter for screning mammogram for breast cancer, Z12.31 Calculator Name NCI Breast Cancer Risk Assessment Tool 5 Year Breast Cancer Risk 1.50% Lifetime Breast Cancer Risk 14.10% Personal Breast Cancer No Personal Ovarian Cancer No Treatments None Family Cancers Grandfather-maternal with lung cancer at age ~50; Grandfather-paternal with leukemia cancer at age ~60. LOCATION: [facility] BREAST COMPOSITION: Heterogeneously dense,which may obscure small masses. FINDINGS: DIAGNOSTIC CATEGORY 0--INCOMPLETE: NEED ADDITIONAL IMAGING EVALUATION. Scattered benign-appearing nodules are present. Scattered benign-appearing calcifications are present. Scattered benign-appearing lymph nodes are present. RIGHT BREAST: 5.8 mm round nodule identified lower inner quadrant, anterior to mid breast. Ultrasound follow-up recommended. LEFT BREAST: No significant suspicious finding. RECOMMENDATIONS: ULTRASOUND: RIGHT BREAST PLEASE NOTE: A NORMAL MAMMOGRAM DOES NOT EXCLUDE THE POSSIBILITY OF BREAST CANCER. A CLINICALLY SUSPICIOUS PALPABLE LUMP SHOULD BE BIOPSIED. Dictated by: Simeon Deng MD on 12/06/2023 at 07:56 Approved by: Simeon Deng MD on 12/06/2023 at 07:59
--- NOTE | 2023-12-05 17:00 | XR_ITS ---
The [address] [address] Patient Name: ALFIE HICKS MRN: [id number] date: 1980 Sex: F Assigned Patient Location: MAMMO Current Patient Location: [facility] Accession/Order Number: [id number] Exam Date: 12/05/2023 16:30 Report Date: 12/06/2023 09:12 At the request of: SHAIKH DIANNA Procedure: XR hand RT min 3V PROCEDURE: XR hand RT min 3V COMPARISON: 09/18/2023 HISTORY: Cellulitis of right hand, L03.113 FINDINGS: BONES:No fracture, acute abnormality, or significant arthropathy. SOFT TISSUES:Negative. No visible soft tissue swelling. EFFUSION:None visible. OTHER: Negative. XR/XR hand RT min 3V IMPRESSION: No acute radiographic abnormality Electronically authenticated by: COREDLL RICH Date: 12/06/2023 09:12
== END 2023-12-05 16:21 | disposition home or self-care (01) ==
LOC: MAMMO 16:21
PROVIDERS: PCP Internal Medicine; Visit Provider Internal Medicine
DX: Z12.31 Encounter for screening mammogram for malignant neoplasm of breast (principal); L03.113 Cellulitis of right upper limb; Z80.1 Family history of malignant neoplasm of trachea, bronchus and lung; Z80.6 Family history of leukemia; N63.14 Unspecified lump in the right breast, lower inner quadrant
CPT/HCPCS: 73130; 77063; 77067

== ENCOUNTER 2023-12-11 15:17 | Outpatient (OUT) | payer MEDICAID, SELFPAY ==
--- NOTE | 2023-12-11 15:35 | US_ITS ---
Patient Name: ALFIE HICKS MR#: [id number] : 1980 Exam Date: 12/11/2023 Ordering Doctor: Shaikh Igor Denton . RADIOLOGY REPORT PROCEDURE: US BREAST RT LIMITED COMPARISON: MM TOMOSYNTHESIS SCREENING BI, 12/05/2023. INDICATIONS: Abnormal mammogram of right breast R92.8 TECHNIQUE: Breast ultrasound was performed, with evaluation focusing only on specific areas of concern. FINDINGS: DIAGNOSTIC CATEGORY 3--PROBABLY BENIGN FINDING. THE FOLLOWING FINDING(S) HAS A HIGH PROBABILITY OF A BENIGN ETIOLOGY: Area of hypodensity identified in the right breast 4 o'clock position measuring 7.9 x 7.6 x 7.9 mm. This could represent prominent fibroglandular tissue. I cannot determine if this corresponds to the mammographic finding. Short interval follow-up is recommended with repeat mammogram and ultrasound in 6 months RECOMMENDATIONS: SHORT TERM FOLLOW-UP DIAGNOSTIC MAMMOGRAM RIGHT BREAST IN 6 MONTHS. SHORT TERM FOLLOW-UP ULTRASOUND RIGHT BREAST IN 6 MONTHS. PLEASE NOTE: A NORMAL ULTRASOUND EXAMINATION DOES NOT EXCLUDE THE POSSIBILITY OF BREAST CANCER. A CLINICALLY SUSPICIOUS PALPABLE LUMP SHOULD BE BIOPSIED. Dictated by: Simeon Deng MD on 12/11/2023 at 16:08 Approved by: Simeon Deng MD on 12/11/2023 at 16:13
== END 2023-12-11 15:18 | disposition home or self-care (01) ==
LOC: US 15:17
PROVIDERS: PCP Internal Medicine; Visit Provider Internal Medicine
DX: R92.8 Other abnormal and inconclusive findings on diagnostic imaging of breast (principal)
CPT/HCPCS: 76642

== ENCOUNTER 2024-01-30 10:48 | Outpatient (OUT) | payer MEDICAID, SELFPAY ==
--- NOTE | 2024-01-30 10:53 | XR_ITS ---
The [address] [address] Patient Name: ALFIE HICKS MRN: [id number] date: 1980 Sex: F Assigned Patient Location: LAB Current Patient Location: Accession/Order Number: [id number] Exam Date: 01/30/2024 10:55 Report Date: 01/31/2024 13:05 At the request of: SHAIKH DIANNA Procedure: XR knee MARGARITA 3V EXAMINATION: XR knee MARGARITA 3V HISTORY: Chronic Pain Of Both Knees M25.561 COMPARISON: No relevant comparison available. FINDINGS: RIGHT FINDINGS: BONES: No significant arthropathy or acute abnormality. SOFT TISSUES: No visible soft tissue swelling. OTHER: Negative. LEFT FINDINGS: BONES: No significant arthropathy or acute abnormality. SOFT TISSUES: No visible soft tissue swelling. OTHER: Negative. XR/XR knee MARGARITA 3V IMPRESSION: RIGHT CONCLUSION: No suspicious abnormality or significant degenerative changes to account for patient's symptoms. LEFT CONCLUSION: No suspicious abnormality or significant degenerative changes to account for patient's symptoms. Electronically authenticated by: EDI CHÁVEZ Date: 01/31/2024 13:05
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
[2024-01-30 11:57] LABS: Basophils Percent Auto 0.6 % (0.2-2.0); Eosinophils Absolute Auto 0.2 10^3/uL (0.0-0.7); Eosinophils Percent Auto 2.8 % (0.9-7.0); Hemoglobin 13.4 g/dL (12.0-16.0); Immature Granulocytes Abs Auto 0.01 10^3/uL (0.00-0.03); Immature Granulocytes Pct Auto 0.2 % (0.0-0.5); Lymphocytes Absolute Auto 1.8 10^3/uL (1.2-3.8); Lymphocytes Percent Auto 28.1 % (20.5-60.0); Mean Corpuscular HGB Conc 33.5 g/dL (29.9-35.2); Mean Corpuscular Volume 89.7 fL (81.0-99.0); Mean Platelet Volume 9.5 fL (9.5-13.5); Monocytes Absolute Auto 0.6 10^3/uL (0.3-0.8); Monocytes Percent Auto 8.6 % (1.7-12.0); Neutrophils Absolute Auto 3.9 10^3/uL (1.4-6.5); Neutrophils Percent Auto 59.7 % (43.0-75.0); Platelet Count 250 10^3/uL (150-450); Red Blood Count 4.46 10^6/uL (4.20-5.40); Red Cell Distribution Width 13.6 % (11.0-15.0); White Blood Count 6.5 10^3/uL (4.0-11.0)
[2024-01-30 14:11] LABS: Alanine Aminotransferase 24 U/L (14-59); Albumin Globulin Ratio 0.9; Albumin Level 3.6 g/dL (3.4-5.0); Alkaline Phosphatase 99 U/L (46-116); Anion Gap 12.7; Aspartate Amino Transferase 13 U/L (15-37); BUN Creatinine Ratio 29.5; Bilirubin Total 0.3 mg/dL (0.2-1.0); Calcium 8.9 mg/dL (8.5-10.1); Chloride 103 mmol/L (98-107); Chol HDL Ratio 4.4; Cholesterol 215 mg/dL (<=200); Estimated GFR (African America >60 (>=60); Estimated GFR (Non-African Ame >60 (>=60); Globulin 3.8 g/dL; Glucose 102 mg/dL (74-106); HDL Cholesterol 49 mg/dL (40-60); Potassium 3.7 mmol/L (3.5-5.1); Sodium 140 mmol/L (136-145); TSH W/ REFLEX FT4 1.086 uIU/mL (0.358-3.740); Total Protein 7.4 g/dL (6.4-8.2); Triglycerides 70 mg/dL (<=150)
[2024-01-30 15:25] LABS: Estimated Average Glucose 105 mg/dL; Glycohemoglobin A1C 5.3 % (4.5-6.2)
== END 2024-01-30 10:49 | disposition home or self-care (01) ==
LOC: LAB 10:49
PROVIDERS: PCP Internal Medicine; Visit Provider Internal Medicine
DX: F41.1 Generalized anxiety disorder (principal); Z13.220 Encounter for screening for lipoid disorders; Z13.1 Encounter for screening for diabetes mellitus; M79.7 Fibromyalgia; I10 Essential (primary) hypertension; M25.561 Pain in right knee; M25.562 Pain in left knee; G89.29 Other chronic pain
CPT/HCPCS: 36415; 73562; 80053; 80061; 83036; 84443; 85025

== ENCOUNTER 2025-02-26 09:05 | Outpatient (OUT) | payer MEDICAID, SELFPAY ==
--- OUTSIDE RECORDS SUMMARY | 2025-02-20 13:40 | XMS_ITS | Encounter Summary ---
Author Organization [facility] Address [address] [facility] [place] [address] Care Team Providers Care Prosthodontist Name Role Phone Joel Gibbs MD Primary Care Provider [phone] Lu Land NP Unavailable [phone] Celia Kraus EXPLORATION GEOLOGIST-NAVAL GUNFIRE LIAISON OFFICER Unavailable Reason for Visit * Reason Comments Fibromyalgia Encounter Details Date Type Department Care Team (Late st Contact Info) Description 02/20/2025 1:40 PM EDT Office Visit [facility] [address] [place] [phone] Marti Osman NP [address] [place] [address] Abnormal weight gain (Primary Dx); Essential (primary) hypertension (I10); Class 1 obesity due to excess calories with serious comorbidity in adult, unspecified BMI Social History Tobacco Use Types Packs/Day Years Used Date Smoking Tobacco: Former Cigarettes 0.5 10 Q uit: 06/28/2021 Passive Smoke Exposure: Past Smokeless Tobacco: Never Alcohol Use Standard Drinks/Week Comments Yes 12 (1 standard drink = 0.6 oz pu re alcohol) caffiene- 32 0z [id number] Health Literacy Answer Date Recor ded How often do you need to hav e someone help you when you read instructions, pamphlets, or other written material from your doctor or pharmacy? Never 04/30/2024 Social Connection and Isolat ion Panel [NHANES] Answer Date Recorded In a typical week, how many times do you talk on the phone with family, friends, or neighbors? More than three times a week 04/30/2024 How often do you get togethe r with friends or relatives? Twice a week 04/30/2024 How often do you attend chur or congregational services? More than 4 times per year 04/30/2024 Do you belong to any clubs o r organizations such as samaritan groups, unions, fraternal or athletic groups, or school groups? No 04/30/2024 Attends Club or Organization Meetings Not on germania e 04/30/2024 Are you , , di vorced, , never , or living with a partner? 04/30/2024 AUDIT-C Answer Date Recorded Q1: How often do you have a drink containing alcohol? 4 or more times a week 06/17/2024 Q2: How many drinks containi ng alcohol do you have on a typical day when you are drinking? 3 or 4 Q3: How often do you have si x or more drinks on one occasion? Less than monthly 06/17/2024 Overall Financial Resource Strain (CARDIA) Answe r Date Recorded How hard is it for you to pa y for the very basics like food, housing, medical care, and heating? Very hard 04/30/2024 PHQ-2 Answer Date Recorded Patient Health Questionnaire-2 Score 0 11/27/2024 [facility] of Occupat ional [facility] - Occupational Stress Questionnaire Answer Date Recorded Do you feel stress - tense, restless, nervous, or anxious, or unable to sleep at night because your mind is troubled all the time - these days? Not at all 04/30/2024 Exercise Vital Sign Answer Date Recorde d On average, how many days pe r week do you engage in moderate to strenuous exercise (like a brisk walk)? 4 days 04/30/2024 On average, how many minutes do you engage in exercise at this level? 30 min 04/30/2024 Hunger Vital Sign Answer Date Recorded Within the past 12 months, y ou worried that your food would run out before you got the money to buy more. Sometimes true Within the past 12 months, t he food you bought just didn't last and you didn't have money to get more. Sometimes true 10/2023 PRAPARE - Transportation Answer Date Re corded In the past 12 months, has l ack of transportation kept you from medical appointments or from getting medications? No 10/2023 In the past 12 months, has l ack of transportation kept you from meetings, work, or from getting things needed for daily living? No 04/30/2024 Housing Stability Vital Sign Answer Brown e Recorded In the last 12 months, was t here a time when you were not able to pay the mortgage or rent on time? Yes 04/30/2024 In the past 12 months, how m any times have you moved where you were living? 1 04/30/2024 At any time in the past 12 m [facility], were you homeless or living in a intermediate (including now)? No 04/30/2024 Education Answer Date Recorded What is the highest level of school you have completed or the highest degree you have received? Associate degree: occupational, technical, or vocational program 06/17/2024 Comments No Sex and Gender Information Value Date Recorded Sex Assigned at Not on file Legal Sex Female 10:51 AM EST Gender Identity Not on file Sexual Orientation Not on file Occupation Industry Job Start Date Job End Date Not on file Not on file Not on file Not on file documented as of this encounter Last Filed Vital Signs Vital Sign Reading Time Taken Comments Blood Pressure 130/88 02/20/2025 1:48 PM EDT Pulse 88 02/20/2025 1:48 PM EDT Temperature 36.6 C (97.8 F) 02/20/2025 1:48 PM EDT Respiratory Rate 18 02/20/2025 1:48 PM EDT Oxygen Saturation 97% 02/20/2025 1:48 PM EDT Inhaled Oxygen Concentration - - Weight 85.8 kg (189 lb 3.2 oz) 02/20/2025 1:48 P M EDT Height - - Body Mass Index 33.52 10/08/2024 10:09 AM EST documented in this encounter Patient Instructions * Patient Instructions* Marti Osman NP - 02/20/2025 1:40 PM EDT Continue adipex Fasting labs mammogram documented in this encounter Progress Notes * TALIA CLARK - 02/20/2025 1:40 PM EDT Knee pain-right Has been hurting for 4 days now. Pt states she has had issues in the past has not hurt up until nowsuddenly knee pain usually aches and is around the pain scale of 6 to a 10 and unable to walk. Pt does not use any thing otc to help. She continues to take the meloxicam * Marti Osman NP - 02/20/2025 1:40 PM EDT Images from the original note were not included. Bhavana Coleman is a 44 y.o. female presents with chief complaint of Fibromyalgia HPI: Here for adipex check: has taken for 6 months now, has lost 25 pounds No chest pain/pressure/dyspnea No NV, no other acute sxs SUBJECTIVE: MEDICATIONS: Current Outpatient Medications Medication Instructions amLODIPine (NORVASC) 5 mg, Oral, Daily baclofen (LIORESAL) 10 mg, Oral, 3 times daily PRN meloxicam (MOBIC) 15 mg, Daily omeprazole (PRILOSEC) 40 mg, Oral, Daily before breakfast, Do not crush or chew. phentermine (ADIPEX-P) 37.5 mg, Oral, Daily before breakfast pregabalin (LYRICA) 100 mg, Oral, 2 times daily sertraline (ZOLOFT) 100 mg, Oral, 2 times daily ALLERGIES: No Known Allergies REVIEW OF SYMPTOMS: Review of Systems Constitutional: Negative for appetite change, chills and fever. HENT: Negative for congestion, ear pain and sore throat. Eyes: Negative for pain, discharge, redness and visual disturbance. Respiratory: Negative for cough, shortness of breath and wheezing. Cardiovascular: Negative for chest pain, palpitations and leg swelling. Gastrointestinal: Negative for abdominal pain, blood in stool, constipation, diarrhea, nausea and vomiting. Genitourinary: Negative for difficulty urinating, dysuria and frequency. Musculoskeletal: Positive for arthralgias and myalgias. Negative for back pain and joint swelling. Skin: Negative for rash and wound. Neurological: Negative for dizziness, tremors, seizures, syncope and headaches. Psychiatric/Behavioral: Negative for behavioral problems, self-injury and suicidal ideas. The patient is not nervous/anxious. Hematological: Does not bruise/bleed easily. Endocrine: Negative for polydipsia, polyphagia and polyuria. Allergic/Immunologic: Negative for environmental allergies and food allergies. PAST MEDICAL HISTORY Past Medical History: Diagnosis Date Acid reflux ADHD (attention deficit hyperactivity disorder) Anxiety Chronic pain disorder Depression 2011 Fibromyalgia Fibromyalgia, primary 2016 HTN (hypertension) Obsessive-compulsive disorder PTSD (post-traumatic stress disorder) Restless leg syndrome 1996 Past Surgical History: Procedure Laterality Date BREAST LUMPECTOMY Right 2010 GASTRECTOMY PARTIAL / TOTAL 1998 KNEE SURGERY 07/05/2024 RT KNEE SCOPE- DR THORNTON family history includes ADD / ADHD in her brother; Arthritis in her mother; Asthma in her mother; Cancer in her maternal grandfather and paternal grandfather; Dementia in her paternal grandmother; Depression in her father, maternal grandfather, mother, and mother's sister; Diabetes in her mother's s ister; Drug abuse in her father; Fibromyalgia in her mother; Hearing loss in her paternal grandmother; Hypertension in her father; Mental illness in her mother's sister and mother's sister; Migrainesin her father; Miscarriages / Stillbirths in her mother's sister; Stroke in her mother; Suicide Attempts in her mother's sister. OBJECTIVE: Visit Vitals BP 130/88 (BP Location: Left arm, Patient Position: Sitting, BP Cuff Size: Adult long) Pulse 88 Temp 97.8 °F (Temporal) Resp 18 Wt 189 lb 3.2 oz SpO2 97% BMI 33.52 kg/m² OB Status Having periods Smoking Status Former BSA 1.95 m² Physical Exam Vitals and nursing note reviewed. Constitutional: General: She is not in acute distress. Appearance: Normal appearance. HENT: Head: Normocephalic and atraumatic. Right Ear: External ear normal. Left Ear: External ear normal. Nose: Nose normal. Mouth/Throat: Mouth: Mucous membranes are moist. Eyes: Extraocular Movements: Extraocular movements intact. Conjunctiva/sclera: Conjunctivae normal. Cardiovascular: Rate and Rhythm: Normal rate and regular rhythm. Pulses: Normal pulses. Heart sounds: Normal heart sounds. Pulmonary: Effort: Pulmonary effort is normal. Breath sounds: Normal breath sounds. Abdominal: General: Bowel sounds are normal. There is no distension. Palpations: Abdomen is soft. There is no mass. Tenderness: There is no abdominal tenderness. Musculoskeletal: Cervical back: Normal range of motion and neck supple. Comments: Bilat knee: no laxity, +crepitus bilat Skin: General: Skin is warm and dry. Capillary Refill: Capillary refill takes 2 to 3 seconds. Findings: No rash. Neurological: General: No focal deficit present. Mental Status: She is alert and oriented to person, place, and time. Psychiatric: Mood and Affect: Mood normal. Behavior: Behavior normal. Thought Content: Thought content normal. Judgment: Judgment normal. ASSESSMENT AND PLAN: No follow-ups on file. Problem List Items Addressed This Visit Essential (primary) hypertension (I10) - Primary Please check blood pressure daily and record DASH diet Limit caffeine Take medication as directed Contact office if chest pain, pressure, dizziness, shortness of breath, swelling legs Recommend slow position changes Current meds: amlodipine Abnormal weight gain Pt meets qualifications of OAC 4731-07-01 for weight loss. BMI>30 or >27 with comorbid conditions. Notify office with any symptoms of chest pain, dyspnea, heart palpitations, or any anxiety symptoms. F/U in 4 weeks to document weight loss. Increase physical activity as tolerated, and lower caloric intake to 1600 calories daily if no contraindications Has had 6 months of adipex: weight started at 214 pounds, today 189 Relevant Medications phentermine (Adipex-P) 37.5 MG tablet Class 1 obesity due to excess calories with serious comorbidity in adult Discussed with patient their BMI (actual, verses recommended). We have also discussed lifestyle modifications: attempts to perform physical activity as chronic conditions allow, also to monitor dietary intake: increasing protein/fruits/veggies and lowering carb intake (unless contraindicated). Limit sodas, juices, and sugary drinks. Currently taking adipex * Marti Osman NP - 02/20/2025 7:05 AM EDTAssociated Problem(s): Abnormal weight gain Pt meets qualifications of OAC 4731-07-01 for weight loss. BMI>30 or >27 with comorbid conditions. Notify office with any symptoms of chest pain, dyspnea, heart palpitations, or any anxiety symptoms. F/U in 4 weeks to document weight loss. Increase physical activity as tolerated, and lower caloric intake to 1600 calories daily if no contraindications Has had 6 months of adipex: weight started at 214 pounds, today 189 * Marti Osman NP - 02/20/2025 7:04 AM EDTAssociated Problem(s): Class 1 obesity due to excess calories with serious comorbidity in adult Discussed with patient their BMI (actual, verses recommended). We have also discussed lifestyle modifications: attempts to perform physical activity as chronic conditions allow, also to monitor dietary intake: increasing protein/fruits/veggies and lowering carb intake (unless contraindicated). Limit sodas, juices, and sugary drinks. Currently taking adipex * Marti Osman NP - 02/20/2025 7:04 AM EDTAssociated Problem(s): Essential (primary) hypertension (I10) Please check blood pressure daily and record DASH diet Limit caffeine Take medication as directed Contact office if chest pain, pressure, dizziness, shortness of breath, swelling legs Recommend slow position changes Current meds: amlodipine documented in this encounter Plan of Treatment Upcoming Encounters Date Type Department Care Team (Late st Contact Info) Description 03/17/2025 2:30 PM EDT Social Work [facility] [address] [facility] [address] [place] [phone] Gustavo Xiao LPC 03/25/2025 2:00 PM EDT Office Visit [facility] [address] [facility] [address] [place] [address] Celia Kraus, EXPLORATION GEOLOGIST-NAVAL GUNFIRE LIAISON OFFICER 112 [facility] [address] [place] [address] 04/23/2025 4:30 PM EDT Office Visit [facility] [address] [place] [address] Marti Osman, RANDEE [address] [place] [phone] documented as of this encounter Visit Diagnoses Diagnosis Abnormal weight gain- Primary Essential (primary) hypertension (I10) Unspecified essential hypertension Class 1 obesity due to excess calories with serious comorbidity in adult, unspecified BMI documented in this encounter Additional Health Concerns Assessment Noted Time PHQ-9 Depression Total Score: 5 11/28/19 1:37 PM EDT documented as of this encounter Care Teams Prosthodontist Relationship Specialty Start Date End Date Joel Gibbs MD [address] [place] [address] PCP - General Family Medicine 04/03/24 Lu Land NP [address] [place] [address] Nurse Practitioner Family Medicine 04/03/24 Celia Kraus, EXPLORATION GEOLOGIST-NAVAL GUNFIRE LIAISON OFFICER 112 [facility] [address] [place] [address] Nurse Practitioner Psychiatry 09/12/24 documented as of this encounter
--- OUTSIDE RECORDS SUMMARY | 2025-02-24 14:30 | XMS_ITS | Encounter Summary ---
Author Organization [facility] Address [address] [facility] [place] [address] Care Team Providers Care Pump Operator Byproducts Name Role Phone Joel Gibbs MD Primary Care Provider [phone] Lu Land COMPUTER ANALYST SUPERVISOR Unavailable [phone] Celia Kraus CHARTER BOAT OPERATOR-PILE DRIVER ENGINEER Unavailable Gustavo Xiao LPC Unavailable Unavailable Reason for Visit * Reason Comments Anxiety ADHD Depression Encounter Details Date Type Department Care Team (Latest Contact Info) Description 02/24/2025 2:30 PM EDT Social Work [facility] [address] [facility] [address] [place] [address] Gustavo Xiao LPC Moderate episode of recurrent major depressive disorder (HCC); Attention deficit hyperactivity disorder (ADHD), predominantly hyperactive type ; NEDRA (generalized anxiety disorder) Social History Tobacco Use Types Packs/Day Years [...] How often do you attend chur or sabianist services? More than 4 times per year 04/30/2024 Do you belong to any clubs o r organizations such as anabaptism groups, unions, fraternal or athletic groups, or [...] Recorded Patient Health Questionnaire-2 Score 0 11/27/2024 [facility] of Occupat ional Health - Occupational Stress Questionnaire Answer Date Recorded [...] any time in the past 12 m [facility], were you homeless or living in a longterm (including now)? No 04/30/2024 Education Answer Date [...] on file documented as of this encounter Plan of Treatment Upcoming Encounters Date Type Department Care Team (Late st Contact Info) Description 03/17/2025 2:30 PM EDT Social Work [facility] [address] [facility] [address] [place] [address] Gustavo Xiao LPC 03/25/2025 2:00 PM EDT Office Visit [facility] [address] [facility] [address] [place] [address] Celia Kraus, CHARTER BOAT [facility] [address] [facility] [address] [place] [address] 04/23/2025 4:30 PM EDT Office Visit [facility] [address] [place] [phone] Marti Osman, RANDEE [address] [place] [address] documented as of this encounter Visit Diagnoses Diagnosis Moderate episode of recurrent major depressive disorder (HCC) Attention deficit hyperactivity disorder (ADHD), predominantly hyperactive type NEDRA (generalized anxiety disorder) Generalized anxiety disorder documented in this encounter Additional Health Concerns Assessment Noted Time PHQ-9 Depression Total Score: 5 11/28/19 25 1:37 PM EDT documented as of this encounter Care Teams Pump Operator Byproducts Relationship Specialty Start Date End Date Joel Gibbs MD [address] [place] [phone] PCP - General Family Medicine 04/03/24 Lu Land NP [address] [place] [address] Nurse Practitioner Family Medicine 04/03/24 Celia Kraus APRN-PILE DRIVER ENGINEER [address] [address] Nurse Practitioner Psychiatry 09/12/24 Gustavo Xiao LPC Therapist Behavioral Health 02/24/25 documented as of this encounter
--- OUTSIDE RECORDS SUMMARY | 2025-02-26 09:07 | XMS_ITS | Encounter Summary ---
Author Organization [facility] Address [address] [place] [address] Care Team Providers Care Small Business Sales Representative Name Role Phone Joel Gibbs MD Primary Care Provider [phone] Lu Land NP Unavailable [phone] Celia Kraus HULL LINE CREW MEMBER-AIR ANALYSIS ENGINEERING TECHNICIAN Unavailable Gustavo Xiao LPC Unavailable Unavailable Reason for Visit * Reason Onset Date Comments Med Refill 01/09/2025 Encounter Details Date Type Department Care Team (Late st Contact Info) Description 01/09/2025 Refill [facility] [address] [place] [phone] Marti Osman NP [address] [place] [address] Abnormal weight gain Social History Tobacco Use Types Packs/Day Years [...] week 04/30/2024 How often do you attend [facility] or temple services? More than 4 times per year 04/30/2024 Do you belong to any clubs o r organizations such as episcopalian groups, unions, fraternal or athletic groups, or [...] Recorded Patient Health Questionnaire-2 Score 0 11/27/2024 [facility] of Occupat ional Health - Occupational Stress [...] any time in the past 12 m [facility], were you homeless or living in a long-term (including now)? No 04/30/2024 Education Answer Date [...] 03/17/2025 2:30 PM EDT Social Work [facility] [address] [facility] [address] [place] [address] Gustavo Xiao LPC 03/25/2025 2:00 PM EDT Office Visit [facility] [address] [facility] [address] [place] [address] Celia Kraus, HULL LINE CREW MEMBER-AIR ANALYSIS ENGINEERING TECHNICIAN [address] [facility] [address] [place] [address] 04/23/2025 4:30 PM EDT Office Visit [facility] [address] [place] [address] Marti Osman, PRODUCE CLERK [address] [place] [address] documented as of this encounter Visit Diagnoses Diagnosis Abnormal weight gain documented in this encounter Additional Health Concerns Assessment Noted Time PHQ-9 Depression Total Score: 5 11/28/19 25 1:37 PM EDT documented as of this encounter Care Teams Small Business Sales Representative Relationship Specialty Start Date End Date Joel Gibbs MD [address] [place] [address] PCP - General Family Medicine 04/03/24 Lu Land NP [address] [place] [address] Nurse Practitioner Family Medicine 04/03/24 Celia Kraus, HULL LINE CREW MEMBER-AIR ANALYSIS ENGINEERING TECHNICIAN [address] [address] Nurse Practitioner Psychiatry 09/12/24 Gustavo Xiao LPC Therapist Behavioral Health 02/24/25 documented as of this encounter
--- OUTSIDE RECORDS SUMMARY | 2025-02-26 09:07 | XMS_ITS | Encounter Summary ---
Author Organization [facility] Address [address] [place] [address] Care Team Providers Care Entry Level Sales Associate Name Role Phone Joel Gibbs MD Primary Care Provider [phone] Lu Land NP Unavailable [phone] Celia Kraus GOLF CLUB MAKER-DATA KEYER Unavailable Gustavo Xiao LPC Unavailable Unavailable Reason for Visit * Reason Onset Date Comments Med Refill 10/15/2024 Encounter Details Date Type Department Care Team (Late st Contact Info) Description 10/15/2024 Refill [facility] [address] [place] [phone] Lu Land NP Vagina, candidiasis Social History Tobacco Use Types Packs/Day Years [...] How often do you attend chur or anglican services? More than 4 times per year 04/30/2024 Do you belong to any clubs o r organizations such as amish groups, unions, fraternal or athletic groups, or [...] Answer Date Recorded Patient Health Questionnaire-2 Score 4 09/24/2024 [facility] of Occupat ional Health - Occupational Stress [...] any time in the past 12 m [facility], were you homeless or living in a [place] [facility] [place] facility (including now)? No 04/30/2024 Education Answer Date [...] on file documented as of this encounter Miscellaneous Notes * Telephone Encounter - Savi Flores MA - 10/17/2024 9:47 AM EST Pt has a voicemail that is not set up yet, so I will send a [employer] message. documented in this encounter Plan of Treatment Upcoming Encounters Date Type Department Care Team (Late st Contact Info) Description 03/17/2025 2:30 PM EDT Social Work [facility] [address] [facility] [address] [place] [address] Gustavo Xiao LPC 03/25/2025 2:00 PM EDT Office Visit [facility] [address] [facility] [address] [place] [address] Celia Kraus, GOLF CLUB MAKER-DATA KEYER [address] [facility] [address] [place] [address] 04/23/2025 4:30 PM EDT Office Visit [facility] [address] [place] [address] Marti Osman NP [address] [place] [address] documented as of this encounter Visit Diagnoses Diagnosis Vagina, candidiasis Candidiasis of vulva and vagina documented in this encounter Additional Health Concerns Assessment Noted Time PHQ-9 Depression Total Score: 10 025 4:11 PM EST documented as of this encounter Care Teams Entry Level Sales Associate Relationship Specialty Start Date End Date Joel Gibbs MD [address] [place] [address] PCP - General Family Medicine 04/03/24 Lu Land NP [address] [place] [address] Nurse Practitioner Family Medicine 04/03/24 Celia Kraus, GOLF CLUB MAKER-DATA KEYER [address] [address] [place] [address] Nurse Practitioner Psychiatry 09/12/24 Gustavo Xiao LPC Therapist Behavioral Health 02/24/25 documented as of this encounter
--- OUTSIDE RECORDS SUMMARY | 2025-02-26 09:07 | XMS_ITS | Encounter Summary ---
Author Organization [facility] Address [address] [place] [address] Care Team Providers Care Gyro Compass Tester Name Role Phone Joel Gibbs MD Primary Care Provider [phone] Lu Land VICE PRESIDENT OF NURSING Unavailable [phone] Celia Kraus BUSINESS QUALITY ASSURANCE ANALYST-CLIENT SUPPORT ANALYST Unavailable Gustavo Xiao LPC Unavailable Unavailable Encounter Details Date Type Department Care Team (Late st Contact Info) Description 10/08/2024 Abstract [facility] [address] [place] [address] Lu Land NP Social History Tobacco Use Types Packs/Day Years [...] 04/30/2024 How often do you attend chur ch or rastafari services? More than 4 times per year 04/30/2024 Do you belong to any clubs o r organizations such as mormonism groups, unions, fraternal or athletic groups, or [...] Recorded Patient Health Questionnaire-2 Score 4 09/24/2024 [facility] of Occupat ional Health - Occupational Stress [...] in the past 12 m [facility], were you homeless or living in a mcfp (including now)? No 04/30/2024 Education Answer Date [...] Social Work [facility] [address] [facility] [address] [place] [phone] Gustavo Xiao LPC 03/25/2025 2:00 PM EDT Office Visit [facility] [address] [facility] [address] [place] [address] Celia Kraus, BUSINESS QUALITY ASSURANCE ANALYST-CLIENT SUPPORT ANALYST [address] [facility] [address] [place] [address] 04/23/2025 4:30 PM EDT Office Visit [facility] [address] [place] [address] Marti Osman NP [address] [place] [address] documented as of this encounter Visit Diagnoses Not on filedocumented in this encounter Additional Health Concerns Assessment Noted Time PHQ-9 Depression Total Score: 10 01/28/2 025 4:11 PM EST documented as of this encounter Care Teams Gyro Compass Tester Relationship Specialty Start Date End Date Joel Gibbs MD [address] [place] [address] PCP - General Family Medicine 04/03/24 Lu Land NP [address] [place] [address] Nurse Practitioner Family Medicine 04/03/24 Celia Kraus APRN-CLIENT SUPPORT ANALYST [address] [place] [address] Nurse Practitioner Psychiatry 09/12/24 Gustavo Xiao LPC Therapist Behavioral Health 02/24/25 documented as of this encounter
--- OUTSIDE RECORDS SUMMARY | 2025-02-26 09:07 | XMS_ITS | Encounter Summary ---
Author Organization [facility] Address [address] [place] [address] Care Team Providers Care Senior Clinician Name Role Phone Joel Gibbs MD Primary Care Provider [phone] Lu Land NP Unavailable [phone] Aida-Celia Perez RAW JUICE WEIGHER-URGENT CARE NURSE PRACTITIONER Unavailable Encounter Details Date Type Department Care Team (Late st Contact Info) Description 02/20/2025 Bamboo flowsheet [facility] [address] [place] [address] Marti Osman NP [address] [place] [address] Social History Tobacco Use Types Packs/Day Years [...] How often do you attend chur or advent services? More than 4 times per year 04/30/2024 Do you belong to any clubs o r organizations such as zoroastrianism groups, unions, fraternal or athletic groups, or [...] Recorded Patient Health Questionnaire-2 Score 0 11/27/2024 [facility] of Occupat ional Health - Occupational Stress [...] any time in the past 12 m [facility], were you homeless or living in a prison (including now)? No 04/30/2024 Education Answer Date [...] Social Work [facility] [address] [facility] [address] [place] [address] Gustavo Xiao LPC 03/25/2025 2:00 PM EDT Office Visit [facility] [address] [facility] [address] [place] [address] Celia Kraus, RAW JUICE WEIGHER-URGENT CARE NURSE PRACTITIONER [address] [facility] 160 [place] [address] 04/23/2025 4:30 PM EDT Office Visit [facility] [address] [place] [phone] Marti Osman, RANDEE [address] [place] [address] documented as of this encounter Visit Diagnoses Not on filedocumented in this encounter Additional Health Concerns Assessment Noted Time PHQ-9 Depression Total Score: 5 11/28/19 25 1:37 PM EDT documented as of this encounter Care Teams Senior Clinician Relationship Specialty Start Date End Date Joel Gibbs MD [address] [place] [address] PCP - General Family Medicine 04/03/24 Lu Land NP [address] [place] [address] Nurse Practitioner Family Medicine 04/03/24 Celia Kraus APRN-URGENT CARE NURSE PRACTITIONER 112 [facility] 160 [place] [address] Nurse Practitioner Psychiatry 09/12/24 documented as of this encounter
--- OUTSIDE RECORDS SUMMARY | 2025-02-26 09:07 | XMS_ITS | Encounter Summary ---
Author Organization [facility] Address [address] [place] [address] Care Team Providers Care Housekeeper/Custodian/Laundry Worker Name Role Phone Joel Gibbs MD Primary Care Provider [phone] Lu Land NP Unavailable [phone] Celia Kraus PELLET PREPARATION OPERATOR-COIL TESTER Unavailable Gustavo Xiao LPC Unavailable Unavailable Reason for Visit * Reason Onset Date Comments Med Refill 10/13/2024 Encounter Details Date Type Department Care Team (Late st Contact Info) Description 10/13/2024 Refill [facility] [address] [place] [address] Lu Land NP Vagina, candidiasis Social History [...] How often do you attend chur or mandaeism services? More than 4 times per year 04/30/2024 Do you belong to any clubs o r organizations such as lutheran groups, unions, fraternal or athletic groups, or [...] Recorded Patient Health Questionnaire-2 Score 4 09/24/2024 [facility] of Occupat ional Health - Occupational [...] any time in the past 12 m [facility], were you homeless or living in a halfway (including now)? No 04/30/2024 Education Answer Date [...] [facility] [address] [facility] [address] [place] [address] Gustavo Xiao LPC 03/25/2025 2:00 PM EDT Office Visit [facility] [address] [facility] [address] [place] [address] Celia Kraus, PELLET PREPARATION OPERATOR-COIL TESTER [address] [facility] 160 [place] [address] 04/23/2025 4:30 PM EDT Office Visit [facility] [address] [place] [address] Marti Osman, RANDEE [address] [place] [address] documented as of this encounter Visit Diagnoses Diagnosis Vagina, candidiasis Candidiasis of vulva and vagina documented in this encounter Additional Health Concerns Assessment Noted Time PHQ-9 Depression Total Score: 10 025 4:11 PM EST documented as of this encounter Care Teams Housekeeper/Custodian/Laundry Worker Relationship Specialty Start Date End Date Joel Gibbs MD [address] [place] [address] PCP - General Family Medicine 04/03/24 Lu Land NP [address] [place] [address] Nurse Practitioner Family Medicine 04/03/24 Celia Kraus APRN-COIL TESTER 112 [facility] 160 [place] [address] Nurse Practitioner Psychiatry 09/12/24 Gustavo Xiao LPC Therapist Behavioral Health 02/24/25 documented as of this encounter
--- OUTSIDE RECORDS SUMMARY | 2025-02-26 09:07 | XMS_ITS | Encounter Summary ---
Author Organization [facility] Address [address] [place] [address] Care Team Providers Care Satellite Dish Technician Name Role Phone Joel Gibbs MD Primary Care Provider [phone] Lu Land NP Unavailable [phone] Celia Kraus WAGON WINDER-RECOIL SPRING WINDER Unavailable Gustavo Xiao LPC Unavailable Unavailable Reason for Visit * Reason Onset Date Comments Med Refill 12/05/2024 Encounter Details Date Type Department Care Team (Late st Contact Info) Description 12/05/2024 Refill [facility] [address] [place] [address] Marti Osman NP [address] [place] [address] Abnormal weight gain Social History Tobacco Use [...] week 04/30/2024 How often do you attend [facility] or tenriism services? More than 4 times per year 04/30/2024 Do you belong to any clubs o r organizations such as sikh groups, unions, fraternal or athletic groups, or [...] Recorded Patient Health Questionnaire-2 Score 0 11/27/2024 [facility] of Occupat ional Health - Occupational Stress [...] any time in the past 12 m [facility], were you homeless or living in a mcc (including now)? No 04/30/2024 Education Answer Date [...] 03/17/2025 2:30 PM EDT Social Work [facility] [address] [facility] [address] [place] [address] Gustavo Xiao LPC 03/25/2025 2:00 PM EDT Office Visit [facility] [address] [place] [address] [place] [address] Celia Kraus, WAGON WINDER-RECOIL SPRING WINDER [address] [facility] 160 [place] [address] 04/23/2025 4:30 PM EDT Office Visit [facility] [address] [place] [address] Marti Osman, MIXING AND DISPENSING SUPERVISOR [address] [place] [address] documented as of this encounter Visit Diagnoses Diagnosis Abnormal weight gain documented in this encounter Additional Health Concerns Assessment Noted Time PHQ-9 Depression Total Score: 5 11/28/19 25 1:37 PM EDT documented as of this encounter Care Teams Satellite Dish Technician Relationship Specialty Start Date End Date Joel Gibbs MD [address] [place] [address] PCP - General Family Medicine 04/03/24 Lu Land NP [address] [place] [address] Nurse Practitioner Family Medicine 04/03/24 Celia Kraus, WAGON WINDER-RECOIL SPRING WINDER [address] [address] Nurse Practitioner Psychiatry 09/12/24 Gustavo Xiao LPC Therapist Behavioral Health 02/24/25 documented as of this encounter
--- NOTE | 2025-02-26 09:08 | MM_ITS ---
Patient Name: ALFIE HICKS MR#: [id number] : 1980 Exam Date: 02/26/2025 Ordering Doctor: ROSELIA DILLARD CNP RADIOLOGY REPORT PROCEDURE: MM TOMOSYNTHESIS SCREENING BI COMPARISON: MM TOMOSYNTHESIS SCREENING BI, 12/05/2023. INDICATIONS: Screening Calculator Name NCI Breast Cancer Risk Assessment Tool 5 Year Breast Cancer Risk 1.60% Lifetime Breast Cancer Risk 13.90% Personal Breast Cancer No Personal Ovarian Cancer No Treatments None Family Cancers Grandfather-maternal with lung cancer at age ~50; Grandfather-paternal with leukemia cancer at age ~60. LOCATION: The [facility] BREAST COMPOSITION: The breasts are heterogeneously dense, which may obscure small masses. FINDINGS: DIAGNOSTIC CATEGORY 1--NEGATIVE. RIGHT BREAST: No significant suspicious finding. LEFT BREAST: No significant suspicious finding. RECOMMENDATIONS: ROUTINE MAMMOGRAM AND CLINICAL EVALUATION IN 12 MONTHS. PLEASE NOTE: A NORMAL MAMMOGRAM DOES NOT EXCLUDE THE POSSIBILITY OF BREAST CANCER. A CLINICALLY SUSPICIOUS PALPABLE LUMP SHOULD BE BIOPSIED. Dictated by: Nael Mohr MD on 02/26/2025 at 14:28 Approved by: Nael Mohr MD on 02/26/2025 at 14:32
--- OUTSIDE RECORDS SUMMARY | 2025-02-26 09:08 | XMS_ITS | Encounter Summary ---
Author Organization [facility] Address [address] [place] [address] Care Team Providers Care Warehouse Shipping Supervisor Name Role Phone Joel Gibbs MD Primary Care Provider [phone] Lu Land BACON SKIN LIFTER Unavailable [phone] Celia Kraus DRILLING ENGINEER-SALES DIRECTOR Unavailable Gustavo Xiao LPC Unavailable Unavailable Reason for Visit * Reason Comments Med Refill Encounter Details Date Type Department Care Team (Late st Contact Info) Description 07/24/2024 Refill [facility] [address] [place] [address] Lu Land NP Fibromyalgia Social History Tobacco Use Types Packs/Day Years [...] How often do you attend chur or samaritan services? More than 4 times per year 04/30/2024 Do you belong to any clubs o r organizations such as evangelical groups, unions, fraternal or athletic groups, or [...] Date Recorded Patient Health Questionnaire-2 Score 0 05/01/2024 [facility] of Occupat ional Health - Occupational [...] any time in the past 12 m [facility], were you homeless or living in a skilled nursing (including now)? No 04/30/2024 Education Answer Date Recorded What is the highest level of school you have completed or the highest degree you have received? Associate degree: occupational, technical, or vocational program 06/17/2024 Comments Unknown Sex and Gender Information Value Date Recorded [...] Social Work [facility] [address] [facility] 160 [place] [address] Gustavo Xiao LPC 03/25/2025 2:00 PM EDT Office Visit [facility] [address] [facility] 160 [place] [address] Celia Kraus, DRILLING ENGINEER-SALES DIRECTOR [address] [facility] 160 [place] [address] 04/23/2025 4:30 PM EDT Office Visit [facility] [address] [place] [address] Marti Osman, RANDEE [address] [place] [address] documented as of this encounter Visit Diagnoses Diagnosis Fibromyalgia Unspecified myalgia and myositis documented in this encounter Care Teams Warehouse Shipping Supervisor Relationship Specialty Start Date End Date Joel Gibbs MD [address] [place] [address] PCP - General Family Medicine 04/03/24 Lu Land NP [address] [place] [address] Nurse Practitioner Family Medicine 04/03/24 Celia Kraus APRN-SALES DIRECTOR [address] [facility] 160 [place] [address] Nurse Practitioner Psychiatry 09/12/24 Gustavo Xiao LPC Therapist Behavioral Health 02/24/25 documented as of this encounter
--- OUTSIDE RECORDS SUMMARY | 2025-02-26 09:08 | XMS_ITS | Encounter Summary ---
Author Organization [facility] Address [address] [facility] [place] [address] Care Team Providers Care Rn Birthing Name Role Phone Shaikh PEARL Denton Primary Care Provider [phone] Joel Gibbs MD Primary Care Provider [phone] Lu Land DEAN OF WOMEN Unavailable [phone] Celia Kraus PROCESSOR GRAIN-TITLE I TEACHER Unavailable Gustavo Xiao LPC Unavailable Unavailable Encounter Details Date Type Department Care Team (Late st Contact Info) Description 01/31/2024 Orders Only [facility] [address] [place] [address] Shaikh Denton MD [address] [facility] [place] [address] Social History Tobacco Use Types Packs/Day Years Used Date Smoking Tobacco: Former Cigarettes Passive Smoke Exposure: Past Smokeless Tobacco: Never Alcohol Use Standard Drinks/Week Comments Yes 12 (1 standard drink = 0.6 oz pu re alcohol) PHQ-2 Answer Date Recorded Patient Health Questionnaire-2 Score 0 01/31/2024 Comments Unknown Sex and Gender Information Value Date Recorded Sex Assigned at Not on file Legal Sex Female 10:51 AM EST Gender Identity Not on file Sexual Orientation Not on file documented as of this encounter Functional Status * Over the past 2 weeks, how often have you been bothered by any of the following problems? Question Answer Date of Assessment Author Elisa interest or pleasure in doing things Not at all 01/31/2024 3:36 PM EDT Spencer Benitez M A Feeling down, depressed, or hopeless Not at all 01/31/2024 3:36 PM EDT Spencer Benitez M A Patient Health Questionnaire -2 Score 0 01/31/2024 3:36 PM EDT BenitezSpencer coleman M A documented as of this encounter Plan of Treatment Upcoming Encounters Date Type Department Care Team (Late st Contact Info) Description 03/17/2025 2:30 PM EDT Social Work [facility] [address] [facility] [address] [place] [address] Gustavo Xiao LPC 03/25/2025 2:00 PM EDT Office Visit [facility] [address] [facility] 160 [place] [address] Celia Kraus, PROCESSOR GRAIN-TITLE I TEACHER [address] [facility] 160 [place] [address] 04/23/2025 4:30 PM EDT Office Visit [facility] [address] [place] [address] Marti Osman NP [address] [place] [address] documented as of this encounter Procedures Procedure Name Priority Date/Time Associated Diagnosis Comments XR KNEE 3 VIEWS BILATERAL Routine 01/31/2024 1:26 PM EDT documented in this encounter Results * XR knee 3 views bilateral (01/31/2024 1:26 PM EDT) Anatomical Region Laterality Modality Lower Extremities, Knee Bilateral Radiogra phic Imaging us Shaikh Corrie KANG IMG XR PROCEDURES Final Result documented in this encounter Visit Diagnoses Not on filedocumented in this encounter Care Teams Rn Birthing Relationship Specialty Start Date End Date Shaikh Denton MD [address] [place] [address] PCP - General Internal Medicine 10/24/23 04/02/24 Joel Gibbs MD [address] [place] [address] PCP - General Family Medicine 04/03/24 Lu Land NP [address] [place] [address] Nurse Practitioner Family Medicine 04/03/24 Celia Kraus APRN-TITLE I TEACHER [address] [address] Nurse Practitioner Psychiatry 09/12/24 Gustavo Xiao LPC Therapist Behavioral Health 02/24/25 documented as of this encounter
--- OUTSIDE RECORDS SUMMARY | 2025-02-26 09:08 | XMS_ITS | Encounter Summary ---
Author Organization [facility] Address [address] [place] [address] Care Team Providers Care Cardiology Nurse Practitioner Name Role Phone Shaikh PEARL Denton Primary Care Provider [phone] Joel Gibbs MD Primary Care Provider [phone] Lu Land MANDARIN TUTOR Unavailable [phone] Celia Kraus PHLEBOTOMY TECHNOLOGIST-AUTO GLASS WORKER Unavailable Gustavo Xiao LPC Unavailable Unavailable Encounter Details Date Type Department Care Team (Late st Contact Info) Description 12/12/2023 Orders Only [facility] [address] [place] [address] Shaikh Denton MD [address] [facility] [place] [address] Social History Tobacco Use Types Packs/Day Years Used Date Smoking Tobacco: Former Cigarettes Smokeless Tobacco: Never Alcohol Use Standard Drinks/Week Comments Yes 12 (1 standard drink = 0.6 oz pu re alcohol) PHQ-2 Answer Date Recorded Patient Health Questionnaire-2 Score 1 09/21/2023 Comments Unknown Sex and Gender Information Value Date Recorded Sex Assigned at Not on file Legal Sex Female 10:51 AM EST Gender Identity Not on file Sexual Orientation Not on file documented as of this encounter Plan of Treatment Upcoming Encounters Date Type Department Care Team (Late st Contact Info) Description 03/17/2025 2:30 PM EDT Social Work [facility] [address] [facility] [address] [place] [address] Gustavo Xiao LPC 03/25/2025 2:00 PM EDT Office Visit [facility] [address] [facility] [address] [place] [address] Celia Kraus, PHLEBOTOMY TECHNOLOGIST-AUTO GLASS WORKER [address] [facility] [address] [place] [address] 04/23/2025 4:30 PM EDT Office Visit [facility] [address] [place] [address] Marti Osman NP [address] [place] [address] documented as of this encounter Procedures Procedure Name Priority Date/Time Associated Diagnosis Comments US BREAST RIGHT Routine 12/11/2023 7:33 AM EDT documented in this encounter Results * US BREAST RIGHT (12/11/2023 7:33 AM EDT) Anatomical Region Laterality Modality Radiographic Rosa ging Shaikh Corrie KANG IMG XR PROCEDURES Final Result documented in this encounter Visit Diagnoses Not on filedocumented in this encounter Care Teams Cardiology Nurse Practitioner Relationship Specialty Start Date End Date Shaikh Denton MD [address] [place] [address] PCP - General Internal Medicine 10/24/23 04/02/24 Joel Gibbs MD [address] [place] [address] PCP - General Family Medicine 04/03/24 Lu Land NP [address] [place] [address] Nurse Practitioner Family Medicine 04/03/24 Celia Kraus, PHLEBOTOMY TECHNOLOGIST-AUTO GLASS WORKER [address] [place] [address] Nurse Practitioner Psychiatry 09/12/24 Gustavo Xiao LPC Therapist Behavioral Health 02/24/25 documented as of this encounter
--- OUTSIDE RECORDS SUMMARY | 2025-02-26 09:08 | XMS_ITS | Encounter Summary ---
Author Organization [facility] Address [address] [place] [address] Care Team Providers Care Hydrocrane Operator Name Role Phone Joel Gibbs MD Primary Care Provider [phone] Lu Land NP Unavailable [phone] Celia Kraus DIE MAKER STAMPING-BEAM SAW OPERATOR Unavailable Gustavo Xiao LPC Unavailable Unavailable Reason for Visit * Reason Onset Date Comments Med Refill 11/14/2024 Encounter Details Date Type Department Care Team (Late st Contact Info) Description 11/14/2024 Refill [facility] [address] [place] [address] Marti Osman NP [address] [place] [address] Gastroesophageal reflux disease without esophagitis; Fibromyalgia Social History Tobacco Use Types Packs/Day [...] How often do you attend chur or bahai services? More than 4 times per year 04/30/2024 Do you belong to any clubs o r organizations such as protestant groups, unions, fraternal or athletic groups, or [...] Recorded Patient Health Questionnaire-2 Score 4 09/24/2024 [facility] - Occupational Stress Questionnaire Answer [...] any time in the past 12 m [facility], were you homeless or living [...] encounter Miscellaneous Notes * Telephone Encounter - Marti Osman NP - 11/15/2024 1:25 PM EDT I sent those in on the day of her appt. They should already be at the pharmacy documented in this encounter Plan of Treatment Upcoming Encounters Date Type Department Care Team (Late st Contact Info) Description 03/17/2025 2:30 PM EDT Social Work [facility] [address] [facility] [address] [place] [address] Gustavo Xiao LPC 03/25/2025 2:00 PM EDT Office Visit [facility] [address] [facility] [address] [place] [address] Celia Kraus, DIE MAKER STAMPING-BEAM SAW OPERATOR [address] [place] [address] [place] [address] 04/23/2025 4:30 PM EDT Office Visit [facility] [address] [place] [address] Marti Osman NP [address] [place] [address] documented as of this encounter Visit Diagnoses Diagnosis Gastroesophageal reflux disease without esophagitis Esophageal reflux Fibromyalgia Unspecified myalgia and myositis documented in this encounter Additional Health Concerns Assessment Noted Time PHQ-9 Depression Total Score: 10 025 4:11 PM EST documented as of this encounter Care Teams Hydrocrane Operator Relationship Specialty Start Date End Date Joel Gibbs MD [address] [place] [address] PCP - General Family Medicine 04/03/24 Lu Land NP [address] [place] [address] Nurse Practitioner Family Medicine 04/03/24 Celia Kraus APRN-BEAM SAW OPERATOR [address] [place] [address] [place] [address] Nurse Practitioner Psychiatry 09/12/24 Gustavo Xiao LPC Therapist Behavioral Health 02/24/25 documented as of this encounter
--- OUTSIDE RECORDS SUMMARY | 2025-02-26 09:08 | XMS_ITS | Clinical Summary ---
Author Organization [facility] Address [address] [place] [address] Care Team Providers Care Field Automobile Adjuster Name Role Phone Joel Gibbs MD Primary Care Provider [phone] Lu Land FREIGHT TRAFFIC CONSULTANT Unavailable [phone] Celia Kraus SAILING MASTER-RESTAURANT HOSTESS Unavailable Gustavo Xiao LPC Unavailable Unavailable Allergies No known active allergies Medications amLODIPine (Norvasc) 5 MG tabletIndication s:Essential (primary) hypertension Take 1 tablet (5 mg) by mouth Daily 90 tablet 1 5 Active omeprazole (PriLOSEC) [address] capsuleIndicatio ns:Gastroesophag eal reflux disease without esophagitis Take 1 capsule (40 mg) by mouth in the morning. Take before meals. Do not crush or chew.. 90 capsule 1 5 05/04/20 25 Active baclofen (Lioresal) 10 MG tabletIndication s:Acute left-sided low back pain without sciatica Take 1 tablet (10 mg) by mouth 3 (three) times a day as needed for muscle spasms 90 tablet 2 5 Active sertraline (Zoloft) 100 MG tabletIndication s:Moderate episode of recurrent major depressive disorder (HCC) Take 1 tablet (100 mg) by mouth in the morning and 1 tablet (100 mg) before bedtime. 60 tablet 2 5 04/06/20 25 Active pregabalin (Lyrica) 100 MG capsuleIndicatio ns:Fibromyalgia Take 1 capsule (100 mg) by mouth in the morning and 1 capsule (100 mg) before bedtime. 180 capsule 1 5 04/29/20 25 Active meloxicam (Mobic) 15 MG tablet Take 15 mg by mouth Daily Active phentermine (Adipex-P) 37.5 MG tabletIndication s:Abnormal weight gain Take 1 tablet (37.5 mg) by mouth in the morning. Take before meals. 30 tablet 5 03/22/20 25 Active meloxicam (Mobic) 15 MG tabletIndication s:Acute left-sided low back pain without sciatica Take 1 tablet (15 mg) by mouth Daily as needed for mild pain 90 tablet 1 5 02/04/20 25 pregabalin (Lyrica) 75 MG capsuleIndicatio ns:Fibromyalgia Take 1 capsule (75 mg) by mouth in the morning and 1 capsule (75 mg) before bedtime. 180 capsule 1 5 01/30/20 25 Discontinue d(Reorder) phentermine (Adipex-P) 37.5 MG tabletIndication s:Abnormal weight gain Take 1 tablet (37.5 mg) by mouth in the morning. Take before meals. 30 tablet 5 02/21/20 25 Discontinue d(Reorder) phentermine (Adipex-P) 37.5 MG tabletIndication s:Abnormal weight gain Take 1 tablet (37.5 mg) by mouth in the morning. Take before meals. 30 tablet 5 02/21/20 25 Discontinue d(Reorder) Active Problems Problem Noted Date Diagnosed Date Chondromalacia patellae, right knee 02/20/2025 Overview (02/20/2025): Noted by [facility] last documented on [id number] Class 1 obesity due to exces s calories with serious comorbidity in adult 01/23/2025 Assessment & Plan (02/20/2025 7:04 AM EDT): Discussed with patient their BMI (actual, verses recommended). We have also discussed lifestyle modifications: attempts to perform physical activity as chronic conditions allow, also to monitor dietary intake: increasing protein/fruits/veggies and lowering carb intake (unless contraindicated). Limit sodas, juices, and sugary drinks. Currently taking adipex Abnormal weight gain 10/27/2024 Assessment & Plan (02/20/2025 2:04 PM EDT): Pt meets qualifications of OAC 4731-07-01 for [...] weight started at 214 pounds, today 189 Assessment & Plan (11/05/2024 4:14 PM EDT): Pt meets qualifications of OAC 4731-07-01 for weight loss. BMI>30 or >27 with comorbid conditions. Notify office with any symptoms of chest pain, dyspnea, heart palpitations, or any anxiety symptoms. F/U in 4 weeks to document weight loss. Increase physical activity as tolerated, and lower caloric intake to 1600 calories daily if no contraindications Has had 3 months of adipex: weight started at 214 pounds, today 207 Recurrent major depression 09/24/2024 Assessment & Plan (11/05/2024 4:16 PM EDT): On sertraline PHQ 9= 13 Cont with psych Screening for colon cancer 05/01/2024 Right carpal tunnel syndrome 01/31/2024 Assessment & Plan (05/01/2024 4:57 PM EDT): Right Wrist Pain - In median nerve distribution. Exam c/w CTS. Order EMG/NCV On Lyrica for fibromyalgia - does not help with CTS. Using wrist splint - no improvement; EMG completed in 01/2024 Referral sent to ortho Assessment & Plan (01/31/2024 3:50 PM EDT): Right Wrist Pain - In median nerve distribution. Exam c/w CTS. Order EMG/NCV Refer to orthopedic. On Lyrica for fibromyalgia - does not help with CTS. Using wrist splint - no improvement. Gastroesophageal reflux disease without esophagi tis 12/19/2023 Assessment & Plan (11/05/2024 7:11 AM EDT): Recommendations: freq small meals, nothing to eat or drink at least 2 hours prior to bed, limit caffeine, alcohol, as well as spicy foods Meds to limit or avoid if possible: NSAIDS Elevate HOB if possible Current med: omeprazole Assessment & Plan (01/31/2024 3:47 PM EDT): Reports reflux symptoms, well controlled on Prilosec 40 mg. Had an EGD around 5 years ago. She has not attempted to try a lower dose. She does not use it daily. Symptoms are well controlled on Prilosec. Assessment & Plan (12/19/2023 3:47 PM EDT): Reports reflux symptoms, chronically on Prilosec 40 mg. Had an EGD around 5 years ago. She has not attempted to try a lower dose. She does not use it daily. Symptoms are well controlled on Prilosec. Essential (primary) hypertension (I10) Assessment & Plan (02/20/2025 7:04 AM EDT): Please check blood pressure daily and record DASH diet Limit caffeine Take medication as directed Contact office if chest pain, pressure, dizziness, shortness of breath, swelling legs Recommend slow position changes Current meds: amlodipine Assessment & Plan (11/05/2024 7:11 AM EDT): Please check blood pressure daily and record DASH diet Limit caffeine Take medication as directed Contact office if chest pain, pressure, dizziness, shortness of breath, swelling legs Recommend slow position changes Current meds: amlodipine Assessment & Plan (05/01/2024 4:49 PM EDT): Currently taking amlodipine 5mg Does not Check BP at home; Denies orthostatic changes, dizziness, cough, shortness of breath, swelling in extremities. Continue current regimen. Chronic pain of both knees 12/19/2023 Assessment & Plan (05/01/2024 4:56 PM EDT): Bilateral Knee Pain, worse towards the end of the day. Right knee pain is worse than left knee. No injury. Xrays of knees negative. Refer to ortho. Assessment & Plan (12/19/2023 4:05 PM EDT): Bilateral Knee Pain, worse towards the end of the day. Right knee pain is worse than left knee. No injury. Will get XR of knees b/l. Right wrist pain 12/19/2023 Assessment & Plan (12/19/2023 4:11 PM EDT): Right Wrist pain intermittently. Hx of bone spurs in wrist joint. Use meloxicam as needed Abnormal mammogram of right breast 12/06/2023 Encounter for screening mammogram for breast can cer 10/24/2023 Assessment & Plan (10/24/2023 9:56 AM EST): Prior hx of lumpectomy, right breast - benign lesion Ordered mammogram H/O malignant gastrointestinal stromal tumor (GI ST) 10/24/2023 Overview (11/10/2024): Reviewed notes, is to be having fu CT scan w oral and IV contrast every 2 years Assessment & Plan (10/24/2023 9:57 AM EST): H/o GIST s/p resection. No need for Chemo/radiation afterwards. Wellness examination 10/24/2023 Assessment & Plan (10/24/2023 10:05 AM EST): Annual exam. - ordered mammogram. Referred to OBGYN for PAP. Reviewed medical, surgical and social hx. Reviewed medication list. Health related questions and concerns addressed and answered. Patient provided appropriate education on chronic medical conditions and prescription medications. Fibromyalgia 09/21/2023 Assessment & Plan (11/05/2024 4:19 PM EDT): On lyrica, nsaid, and muscle relaxer OARRS reveiwed Assessment & Plan (05/01/2024 4:45 PM EDT): Currently taking Lyrica 75mg Daily Feels symptoms are well controlled currently. Assessment & Plan (01/31/2024 3:44 PM EDT): Was previously on Cymbalta, was not effective. Weaned off of it. She was started on Lyrica 50 mg q12. Her Lyrica was later on increased to 75 mg q12. She is doing well overall now. She is also on Mobic. C/w same Assessment & Plan (12/19/2023 3:52 PM EDT): Was previously on Cymbalta, was not effective. Weaned off of it. She was started on Lyrica 50 mg q12. It helped her initially and she was doing better on it. Did not experience any adverse effects on it. However, for past 1 week, she feels that she is not doing as well as she was when she started using Lyrica. Will also start on Meloxicam. Assessment & Plan (10/24/2023 9:55 AM EST): Was previously on Cymbalta, was not effective. Weaned off of it. Stopped using. Will start on Lyrica 50 q12. Add tizanidine at night. Assessment & Plan (09/21/2023 11:37 AM EST): Uses Cymbalta 60 mg daily. She reports she has widespread pain, brain fog, and cymbalta is not really helping her much. Wean patient off Cymbalta - use 30 mg daily for 2 weeks, then 30 mg every other day x 2 weeks. NEDRA (generalized anxiety disorder) 09/21/2023 Assessment & Plan (11/05/2024 4:15 PM EDT): Currently taking sertraline NEDRA 7=3 Cont with mental health Assessment & Plan (01/31/2024 3:48 PM EDT): Patient on Zoloft now. She was previously on Buspirone. She feels her anxiety responded well to Zoloft. C/w same Assessment & Plan (12/19/2023 3:44 PM EDT): Patient was started on Zoloft last appointment for NEDRA. She was previously on Buspirone. She feels her anxiety responded well to Zoloft but she has noted she is very irritable, with periods of mild depression. She is not sure if Zoloft helped overall but she would like to try a higher dose. Assessment & Plan (10/24/2023 9:56 AM EST): Start on Zoloft. She stopped using Buspirone also. She feels that she has obsessive tendencies and they were better controlled when she was on Zoloft. Assessment & Plan (09/21/2023 11:44 AM EST): Patient is on Buspirone for it. Well controlled overall. She reports that she has obsessive/compulsive tendencies where she tries to control others and this was a lot better when she was on Zoloft but was taken off of it since she was started on Cymbalta. C/w Buspirone for now. Will start patient on Zoloft. Weaning her off of Cymbalta. Attention deficit hyperactiv ity disorder (ADHD), predominantly hyperactive type 09/21/2023 Assessment & Plan (05/01/2024 5:39 PM EDT): Adderall XR 30mg Daily Feels symptoms are well controlled some days, other days reports difficulty completing tasks despite adderall. Reports frequent highs and lows Inattention Inability to complete tasks Forgets things frequently Intermittent depression and anxiety Denies ticks, tremors, palpitations, chest pain. Referral sent to Psychiatry for formal diagnosis and treatment recommendation. CSA sighned. Tox screen ordered. OARRS reviewed. Continue current regimen at this time until psych eval. Assessment & Plan (01/31/2024 3:48 PM EDT): Patient on Adderral. Predominant symptom is hyperactivity. Doing well. C/w Adderrall. Assessment & Plan (12/19/2023 3:45 PM EDT): Patient on Adderral. Predominant symptom is hyperactivity. Doing well. C/w Adderrall. Assessment & Plan (10/24/2023 9:57 AM EST): Patient on Adderral. Predominant symptom is hyperactivity. Doing well. C/w Adderrall. Assessment & Plan (09/21/2023 11:36 AM EST): Patient on Adderral. Predominant symptom is hyperactivity. She has not been able to use it for a few months since she moved. Resume at previous dose. Resolved Problems Problem Noted Date Diagnosed Date Resolved Date Morbid (severe) obesity due to excess calories 11/05/2024 11/05/2024 Class 2 obesity due to exces s calories with body mass index (BMI) of 37.0 to 37.9 in adult 10/27/2024 01/23/2025 Assessment & Plan (11/05/2024 7:13 AM EDT): Discussed with patient their BMI (actual, verses recommended). We have also discussed lifestyle modifications: attempts to perform physical activity as chronic conditions allow, also to monitor dietary intake: increasing protein/fruits/veggies and lowering carb intake (unless contraindicated). Limit sodas, juices, and sugary drinks. Has been taking adipex Acute left-sided low back pa in without sciatica 07/31/2024 11/05/2024 Assessment & Plan (09/05/2024 4:19 PM EST): Left lower back pain. Constant pain, aching pain. Denies injury or trauma Pain does not radiate Denies Numbness or tingling Tx: Heat Muscle relaxer Muscle relaxer helps her fall asleep but does not alleviate the pain Trialed flexeril and baclofen- no relief. Will order imaging today. Assessment & Plan (07/31/2024 4:58 PM EST): Left lower back pain. Constant pain, aching pain. Denies injury or trauma Pain does not radiate Denies Numbness or tingling Tx: Heat Muscle relaxer Muscle relaxer helps her fall asleep but does not alleviate the pain Will stop flexeril for now and trial baclofen. Xray ordered. Adult BMI 37.0-37.9 kg/sq m 07/31/2024 01/23/2025 Assessment & Plan (10/08/2024 10:29 AM EST): Started Adipex in July: Starting weight: 214 Weight today: 214 Down 3 pounds since July. Gained 3 pounds since August 5% is 10 pounds States her diet was not best over the holidays. Feels she is losing weight, clothes fit better. Goal weight : 135-145 Denies any adverse effects, chest pain, elevated BP, shortness of breath, dizziness, etc. Diet: Has stopped drinking beer since starting Adipex. Is doing portion control Water: 32-48 ounces per day, still not enough but is trying to get up to 64- 84 ounces per day. Caffeine: 12 ounces per day Sleep: 8 hours per night. Feels well rested Will continue Adipex for one more month- see how weight is doing next month. Pt meets qualifications of OAC 4731-07-01 for weight loss. BMI>30 or >27 with comorbid conditions. Blood pressure WNL. Notify office with any symptoms of chest pain, dyspnea, heart palpitations, or any anxiety symptoms. F/U in 4 weeks to document weight loss. Increase physical activity as tolerated, and lower caloric intake to 1600 calories daily if no contraindications. Assessment & Plan (09/05/2024 4:19 PM EST): Started Adipex in July: Starting weight: 214 Weight today: 211 Down 3 pounds 5% is 10 pounds Goal weight : 135-145 Denies any adverse effects, chest pain, elevated BP, shortness of breath, dizziness, etc. Diet: Has stopped drinking beer since starting Adipex. Is doing portion control Water: 32-48 ounces per day, still not enough but is trying to get up to 64- 84 ounces per day. Caffeine: 12 ounces per day Sleep: 8 hours per night. Feels well rested Continue Adipex. Pt meets qualifications of OAC 4731-07-01 for weight loss. BMI>30 or >27 with comorbid conditions. Blood pressure WNL. Notify office with any symptoms of chest pain, dyspnea, heart palpitations, or any anxiety symptoms. F/U in 4 weeks to document weight loss. Increase physical activity as tolerated, and lower caloric intake to 1600 calories daily if no contraindications. Assessment & Plan (07/31/2024 4:22 PM EST): Discussed with patient their BMI (actual, verses recommended). We have also discussed lifestyle modifications: attempts to perform physical activity as chronic conditions allow, also to monitor dietary intake: increasing protein/fruits/veggies and lowering carb intake (unless contraindicated). Limit sodas, juices, and sugary drinks. Also discussed oral medications that can be utilized for weight loss, as well as surgical options for weight loss. Pt interested in starting phentermine. Pt meets qualifications of OAC 4731-07-01 for weight loss. BMI>30 or >27 with comorbid conditions. Blood pressure WNL. Notify office with any symptoms of chest pain, dyspnea, heart palpitations, or any anxiety symptoms. F/U in 4 weeks to document weight loss. Increase physical activity as tolerated, and lower caloric intake to 1600 calories daily if no contraindications. Will stop adderall at this time until patient is done with phentermine. Screening for hyperlipidemia 12/19/2023 11/05/2024 Screening for diabetes mellitus 12/19/2023 11/05/2024 Primary hypertension 09/21/2023 025 Assessment & Plan (01/31/2024 3:47 PM EDT): BP well controlled. On average less than 130/90. Tolerating Anti hypertensive w/o adverse effects. Patient encouraged to continue with home BP monitoring and call office if he experiences orthostatic symptoms or persistently elevated BP. C/w Amlodipine 5 mg . Assessment & Plan (12/19/2023 3:45 PM EDT): BP well controlled. On average less than 130/90. Tolerating Anti hypertensive w/o adverse effects. Denies lightheadedness, dizziness, syncope, presyncope. Patient encouraged to continue with home BP monitoring and call office if he experiences orthostatic symptoms or persistently elevated BP. C/w Amlodipine 5 mg . Assessment & Plan (10/24/2023 9:54 AM EST): BP well controlled. On average less than 130/90. Tolerating Anti hypertensive w/o adverse effects. Denies lightheadedness, dizziness, syncope, presyncope. Patient encouraged to continue with home BP monitoring and call office if he experiences orthostatic symptoms or persistently elevated BP. C/w Amlodipine 5 mg . Assessment & Plan (09/21/2023 11:35 AM EST): BP well controlled. On average less than 130/90. Tolerating Anti hypertensive w/o adverse effects. Denies lightheadedness, dizziness, syncope, presyncope. Patient encouraged to continue with home BP monitoring and call office if he experiences orthostatic symptoms or persistently elevated BP. C/w Amlodipine 5 mg . Encounter to establish care with new doctor 09/21/2023 01/23/2025 Assessment & Plan (09/21/2023 11:44 AM EST): New Patient, here to establish care. Reviewed medical, surgical and social hx. Reviewed available old records. Reviewed and updated medication list. Recent hospital admission for dog bite complicated by hand cellulitis. On Augmentin. Cellulitis of right hand 09/21/202306/2025 Assessment & Plan (10/24/2023 9:58 AM EST): Patient treated with abx but reports she feels her her inter phalangeal joint is stiff afterwards Order XR. Assessment & Plan (09/21/2023 11:50 AM EST): Cellulitis of Right Hand - overnight observation at [facility]. Reviewed hospital records. Patient on PO Augmentin. Has 7 more days to finish complete course. Improving. Monitor closely. Encounters Date Type Department Care Team Description 02/24/2025 2:30 PM EDT Social Work [facility] [address] [facility] [address] [place] [address] Gustavo Xiao DISPATCHER RADIO Moderate episode of recurrent major depressive disorder (HCC); Attention deficit hyperactivity disorder (ADHD), predominantly hyperactive type ; NEDRA (generalized anxiety disorder) 02/24/2025 Bamboo flowsheet [facility] [address] [facility] [address] [place] [address] Dameon Gustavo, DISPATCHER RADIO 02/24/2025 Travel 02/20/2025 1:40 PM EDT Office Visit [facility] [address] [place] [address] Marti Osman, RANDEE Abnormal weight gain (Primary Dx); Essential (primary) hypertension (I10); Class 1 obesity due to excess calories with serious comorbidity in adult, unspecified BMI 02/20/2025 Bamboo flowsheet [facility] [address] [place] [address] Marit Osman NP 01/29/2025 2:30 PM EDT Social Work [facility] [address] [facility] [address] [place] [address] Gustavo Xiao DISPATCHER RADIO Moderate episode of recurrent major depressive disorder (HCC); Attention deficit hyperactivity disorder (ADHD), predominantly hyperactive type ; NEDRA (generalized anxiety disorder) 01/29/2025 Refill [facility] [address] [place] [address] Marti Osman, RANDEE Fibromyalgia 01/29/2025 Bamboo flowsheet [facility] [address] [facility] [address] [place] [address] Gustavo Xiao DISPATCHER RADIO 01/29/2025 Travel 01/24/2025 Telephone [facility] [address] [place] [address] Marti Osman NP 01/22/2025 4:00 PM EDT Office Visit [facility] [address] [facility] [address] [place] [address] Celia Kraus, SAILING MASTER-RESTAURANT HOSTESS Moderate episode of recurrent major depressive disorder (HCC); NEDRA (generalized anxiety disorder) 01/22/2025 Bamboo flowsheet [facility] [address] [place] [address] Efra Celia Leigh, SAILING MASTER-RESTAURANT HOSTESS 01/22/2025 Travel 01/16/2025 Refill [facility] [address] [place] [address] Marti Osman, RANDEE Abnormal weight gain 01/09/2025 Refill [facility] [address] [place] [id number] Marti Osman, RANDEE Abnormal weight gain 01/08/2025 3:30 PM EDT Social Work [facility] [address] [place] [address] Gustavo Xiao LPC Moderate episode of recurrent major depressive disorder (HCC); NEDRA (generalized anxiety disorder) ; Attention deficit hyperactivity disorder (ADHD), predominantly hyperactive type 01/08/2025 Bamboo flowsheet [facility] [address] [place] [address] Gustavo Xiao LPC 01/08/2025 Travel 01/05/2025 Refill [facility] [address] [place] [address] Celia Kraus Leigh, SAILING MASTER-RESTAURANT HOSTESS Moderate episode of recurrent major depressive disorder (HCC) 12/16/2024 3:30 PM EDT Social Work [facility] [address] [place] [address] Gustavo Xiao LPC Moderate episode of recurrent major depressive disorder (HCC); ENDRA (generalized anxiety disorder) ; Attention deficit hyperactivity disorder (ADHD), predominantly hyperactive type 12/16/2024 Bamboo flowsheet [facility] [address] [place] [address] Gustavo Xiao LPC 12/16/2024 Travel 12/13/2024 Refill [facility] [address] [place] [address] Danna Osmana, FREIGHT TRAFFIC CONSULTANT Acute left-sided low back pain without sciatica 12/10/2024 Refill [facility] [address] [place] [address] JyotsnabeauMarti oseguera, FREIGHT TRAFFIC CONSULTANT Abnormal weight gain 12/05/2024 Refill [facility] [address] [place] [address] JyotsnabeauMarti oseguera, FREIGHT TRAFFIC CONSULTANT Abnormal weight gain 12/02/2024 3:30 PM EDT Social Work [facility] [address] [place] [address] Gustavo Xiao LPC Moderate episode of recurrent major depressive disorder (HCC); NEDRA (generalized anxiety disorder) ; Attention deficit hyperactivity disorder (ADHD), predominantly hyperactive type 12/02/2024 Bamboo flowsheet [facility] [address] [place] [address] Gustavo Xiao LPC 12/02/2024 Travel 11/27/2024 1:30 PM EDT Office Visit [facility] [address] [place] [address] Celia Kraus, SAILING MASTER-RESTAURANT HOSTESS Moderate episode of recurrent major depressive disorder (HCC) 11/27/2024 Bamboo flowsheet [facility] [address] [place] [address] Celia Kraus SAILING MASTER-RESTAURANT HOSTESS 11/27/2024 Travel from Last 3 Months Family History Medical History Relation Name Comments ADD / ADHD Brother Danyelericka Hicks Jr Depression Father Danyelericka Hicks Drug abuse Father Danyelericka Hicks Hypertension Father Danyel [place] Migraines Father Danyel [place] Cancer Maternal Grandfather Shady Leonie Depression Maternal Grandfather Shady Hadley Arthritis Mother Ariella Gribbons Asthma Mother Ariella Gribbons Depression Mother Ariella Gribbons Fibromyalgia Mother Ariella Gribbons Stroke Mother Ariellaelisabet Hicks Diabetes Mother's Sister 1 Nadia Mccormackcaitlyn Mental illness Mother's Sister 2 commited suicide Depression Mother's Sister 3 Nathalie Hadley Mental illness Mother's Sister 3 Nathalie Hadley Miscarriages / Stillbirths Mother's Sister 3 Nathalie shea Suicide Attempts Mother's Sister 3 Nathalie Hadley Cancer Paternal Grandfather Al Gribbons Dementia Paternal Grandmother Veronica Hicks Hearing loss Paternal Grandmother Veronica Hicks Relation Name Status Comments Brother Danyel Hicks Jr Alive Father Danyel Hicks Alive Maternal Grandfather Shady Hadley Mother Ariella Hicks Alive Mother's Sister 1 Nadia Marella Mother's Sister 2 Alive Mother's Sister 3 Nathalie Hadley Alive Paternal Grandfather Al Gribbons Paternal Grandmother Veronica Hicks Alive Social History Tobacco Use Types Packs/Day Years Used Date Smoking Tobacco: Former Cigarettes 0.5 10 Q uit: 06/28/2021 Passive Smoke Exposure: Past Smokeless Tobacco: Never Tobacco Cessation:Counseling Given: Not Answered Alcohol Use Standard Drinks/Week Comments Yes 12 [...] often do you attend chur ch or mu-ism services? More than 4 times per year 04/30/2024 Do you belong to any clubs o r organizations such as mandaen groups, unions, fraternal or athletic groups, or [...] any time in the past 12 m [facility], were you homeless or living in a senior living (including now)? No 04/30/2024 Education Answer Date [...] file Not on file Not on file Last Filed Vital Signs Vital Sign Reading [...] oz) 02/20/2025 1:48 P M EDT Height 160 cm (5' 3 ) 10/08/2024 10:09 AM EST Body Mass Index 33.52 10/08/2024 10:09 AM EST Plan of Treatment Upcoming Encounters Date Type Department Care Team (Late st Contact Info) Description 03/17/2025 2:30 PM EDT Social Work [facility] [address] [facility] [address] [place] [address] Gustavo Xiao LPC 03/25/2025 2:00 PM EDT Office Visit [facility] [address] [facility] [address] [place] [address] Celia Kraus, SAILING MASTER-RESTAURANT HOSTESS [address] [facility] [address] [place] [address] 04/23/2025 4:30 PM EDT Office Visit [facility] [address] [place] [address] Marti Osman, RANDEE [address] [place] [address] Health Maintenance Due Date Last Done Comments CT Colonography 1979 FIT-DNA 1979 FIT 1979 FOBT 1979 Sigmoidoscopy 1979 Pap Smear 2000 Cervical Cancer Screening 2009 HPV/Cotest 2009 Mammogram 12/05/2024 12/06/2023 Influenza Vaccine (#1) 2025 Colonoscopy 07/02/2034 07/02/2024 Colorectal Cancer Screening 07/02/2034 Procedures Procedure Name Priority Date/Time Associated Diagnosis Comments COLONOSCOPY DIAGNOSTIC Routine 8:22 AM EST MM TOMOSYNTHESIS SCREENING BI 12/06/2023 7:59 AM EDT from Last 3 Months or Most Recently Relevant to Health Maintenance Results * COLONOSCOPY DIAGNOSTIC (07/02/2024 8:22 AM EST) Anatomical Region Laterality Modality Radiographic Rosa ging Imad Luci KANG IMG XR PROCEDURES Final Result * MM TOMOSYNTHESIS SCREENING BI (12/06/2023 7:59 AM EDT) Anatomical Region Laterality Modality Other 12/06/2023 7:59 AM EDT Narrative 12/06/2023 8:00 AM EDT [address] [address] Mammography Report Signed Patient: BHAVANA HICKS MR#: [id number] : 1980 Acct:[id number] Age/Sex: 43 / F ADM Date: 12/05/23 Loc: MAMMO Attending Dr: Shaikh Corrie Cortes Ordering Physician: Shaikh Sophia Denton Results: Date of Service: 12/05/23 Follow Up: Procedure(s): MM tomosynthesis screening BI Accession Number(s): [id number] cc: Shaikh Sophia Denton Patient Name: BHAVANA HICKS MR#: [id number] : 1980 Exam Date: 12/05/2023 Ordering Doctor: Shaikh Igor Denton . RADIOLOGY REPORT PROCEDURE: MM TOMOSYNTHESIS SCREENING BI COMPARISON: None. INDICATIONS: Encounter for screning mammogram for breast cancer, Z12.31 Calculator Name NCI Breast Cancer Risk Assessment Tool 5 Year Breast Cancer Risk 1.50% Lifetime Breast Cancer Risk 14.10% Personal Breast Cancer No Personal Ovarian Cancer No Treatments None Family Cancers Grandfather-maternal with lung cancer at age 50; Grandfather-paternal with leukemia cancer at age 60. LOCATION: [facility] BREAST COMPOSITION: Heterogeneously dense,which may obscure small masses. FINDINGS: DIAGNOSTIC CATEGORY 0--INCOMPLETE: NEED ADDITIONAL IMAGING EVALUATION. Scattered benign-appearing nodules are present. Scattered benign-appearing calcifications are present. Scattered benign-appearing lymph nodes are present. RIGHT BREAST: 5.8 mm round nodule identified lower inner quadrant, anterior to mid breast. Ultrasound follow-up recommended. LEFT BREAST: No significant suspicious finding. RECOMMENDATIONS: ULTRASOUND: RIGHT BREAST PLEASE NOTE: A NORMAL MAMMOGRAM DOES NOT EXCLUDE THE POSSIBILITY OF BREAST CANCER. A CLINICALLY SUSPICIOUS PALPABLE LUMP SHOULD BE BIOPSIED. Dictated by: Simeon Deng MD on 12/06/2023 at 07:56 Approved by: Simeon Deng MD on 12/06/2023 at 07:59 Dictated By: Simeon Deng M.D. Signed By: 12/06/23 0800 DD/ 0759 TD/TT: Singing Messenger: Procedure Note Radiology, Radiologist, - 12/06/2023 [place] [address] Mammography Report Signed Patient: CHARMAINE HICKSR#: [id number] : 1980Acct:[id number] Age/Sex: 43 / FADM Date: 12/05/23 Loc: MAMMO Attending Dr: Shaikh Corrie Cortes Ordering Physician: Shaikh Sophia DentonResults: Date of Service: 12/05/23Follow Up: Procedure(s): MM tomosynthesis screening BI Accession Number(s): [id number] cc: Shaikh Sophia Denton Patient Name: BHAVANA HICKS MR#: [id number] : 1980 Exam Date: 12/05/2023 Ordering Doctor: Shaikh Igor Denton . RADIOLOGY REPORT PROCEDURE: MM TOMOSYNTHESIS SCREENING BI COMPARISON: None. INDICATIONS: Encounter for screning mammogram for breast cancer,Z12.31 Calculator Name NCI Breast Cancer Risk Assessment Tool 5 Year Breast Cancer Risk 1.50% Lifetime Breast Cancer Risk 14.10% Personal Breast Cancer No Personal Ovarian Cancer No Treatments None Family Cancers Grandfather-maternal with lung cancer at age 50; Grandfather-paternal with leukemia cancer at age 60. LOCATION: [facility] BREAST COMPOSITION: Heterogeneously dense,which may obscure smallmasses. FINDINGS: DIAGNOSTIC CATEGORY 0--INCOMPLETE: NEED ADDITIONAL IMAGING EVALUATION. Scattered benign-appearing nodules are present. Scatteredbenign-appearing calcifications are present. Scattered benign-appearing lymph nodes are present. RIGHT BREAST: 5.8 mm round nodule identified lower inner quadrant,anterior to mid breast. Ultrasound follow-up recommended. LEFT BREAST: No significant suspicious finding. RECOMMENDATIONS: ULTRASOUND: RIGHT BREAST PLEASE NOTE: A NORMAL MAMMOGRAM DOES NOT EXCLUDE THE POSSIBILITY OFBREAST CANCER. A CLINICALLY SUSPICIOUS PALPABLE LUMP SHOULD BE BIOPSIED. Dictated by: Simeon Deng MD on 12/06/2023 at 07:56 Approved by: Simeon Deng MD on 12/06/2023 at 07:59 Dictated By: Simeon Deng M.D. Signed By:12/06/23 0800 DD/ 0759 TD/TT: Singing Messenger: Shaikh Corrie KANG [facility] Final Result from Last 3 Months or Most Recently Relevant to Health Maintenance Insurance [employer] [place] Care Teams Field Automobile Adjuster Relationship Specialty Start Date End Date Joel Gibbs MD [address] [place] [address] PCP - General Family Medicine 04/03/24 Lu Land NP [address] [place] [address] Nurse Practitioner Family Medicine 04/03/24 Celia Kraus APRN-RESTAURANT HOSTESS [address] [address] [place] [address] Nurse Practitioner Psychiatry 09/12/24 Gustavo Xiao LPC Therapist Behavioral Health 02/24/25
--- OUTSIDE RECORDS SUMMARY | 2025-02-26 09:08 | XMS_ITS | Encounter Summary ---
Author Organization [facility] Address [address] [facility] [place] [address] Care Team Providers Care Privacy Specialist Name Role Phone Joel Gibbs MD Primary Care Provider [phone] Lu Land RN ORTHOPEDIC Unavailable [phone] Celia Kraus SENIOR NAVAL PARACHUTIST-AIRCRAFT DETAIL DRAFTSPERSON Unavailable Gustavo Xiao LPC Unavailable Unavailable Encounter Details Date Type Department Care Team (Latest Contact Info) Description 02/24/2025 Travel Social History Tobacco Use Types Packs/Day Years [...] How often do you attend chur or gnosticism services? More than 4 times per year [...] Recorded Patient Health Questionnaire-2 Score 0 11/27/2024 [facility] - Occupational Stress Questionnaire Answer Date Recorded [...] in the past 12 m [facility], were you homeless or living in a alf (including now)? No 04/30/2024 Education Answer Date [...] 03/17/2025 2:30 PM EDT Social Work [facility] [address] [facility] [address] [place] [address] Gustavo Xiao LPC 03/25/2025 2:00 PM EDT Office Visit [facility] [address] [facility] [address] [place] [address] Celia Kraus, SENIOR NAVAL PARACHUTIST-[facility] [address] [facility] 160 [place] [address] 04/23/2025 4:30 PM EDT Office Visit [facility] [address] [place] [address] Marti Osman NP [address] [place] [address] documented as of this encounter Visit Diagnoses Not on filedocumented in this encounter Additional Health Concerns Assessment Noted Time PHQ-9 Depression Total Score: 5 11/28/19 25 1:37 PM EDT documented as of this encounter Care Teams Privacy Specialist Relationship Specialty Start Date End Date Joel Gibbs MD [address] [place] [address] PCP - General Family Medicine 04/03/24 Lu Land NP [address] [place] [address] Nurse Practitioner Family Medicine 04/03/24 Celia Kraus APRN-AIRCRAFT DETAIL DRAFTSPERSON [address] [address] Nurse Practitioner Psychiatry 09/12/24 Gustavo Xiao LPC Therapist Behavioral Health 02/24/25 documented as of this encounter
--- OUTSIDE RECORDS SUMMARY | 2025-02-26 09:08 | XMS_ITS | Encounter Summary ---
Author Organization [facility] Address [address] [place] [address] Care Team Providers Care Controls Design Engineer Name Role Phone Shaikh PEARL Denton Primary Care Provider [phone] Joel Gibbs MD Primary Care Provider [phone] Lu Land POTABLE WATER TREATMENT OPERATOR Unavailable [phone] Celia Kraus REINFORCING STEEL MACHINE OPERATOR-CURVE SAW OPERATOR Unavailable Gustavo Xiao LPC Unavailable Unavailable Encounter Details Date Type Department Care Team (Late st Contact Info) Description 01/31/2024 Clinisync Result Encounter [facility] External Department Unsolicited Shaikh Denton MD [address] [place] [address] Social History Tobacco Use Types Packs/Day Years [...] problems? Question Answer Date of Assessment Author Little interest or pleasure in doing things Not at all 01/31/2024 3:36 PM EDT Spencer Benitez M A Feeling down, depressed, or hopeless Not at all 01/31/2024 3:36 PM EDT Spencer Benitez M A Patient Health Questionnaire -2 Score 0 01/31/2024 3:36 PM EDT Spencer Benitez M A documented as of this encounter Plan of Treatment Upcoming Encounters Date Type Department Care Team (Late st Contact Info) Description 03/17/2025 2:30 PM EDT Social Work [facility] [address] [facility] [address] [place] [address] Gustavo Xiao LPC 03/25/2025 2:00 PM EDT Office Visit [facility] [address] [facility] [address] [place] [address] Celia Kraus, REINFORCING STEEL MACHINE OPERATOR-[facility] [address] [facility] [address] [place] [address] 04/23/2025 4:30 PM EDT Office Visit [facility] [address] [place] [address] Marti Osman, RANDEE [address] [place] [address] documented as of this encounter Procedures Procedure Name Priority Date/Time Associated Diagnosis Comments XR KNEE MARGARITA 3V 01/31/2024 1:05 PM EDT documented in this encounter Results * XR KNEE MARGARITA 3V (01/31/2024 1:05 PM EDT) Anatomical Region Laterality Modality Other 01/31/2024 1:05 PM EDT Narrative 01/31/2024 1:08 PM EDT The [address] [address] XRay Report Signed Patient: BHAVANA HICKS MR#: [id number] : 1980 Acct:[id number] Age/Sex: 43 / F ADM Date: 01/30/24 Loc: LAB Attending Dr: Shaikh Corrie Cortes Ordering Physician: Shaikh Sophia Denton Date of Service: 01/30/24 Procedure(s): XR knee MARGARITA 3V Accession Number(s): [id number] cc: Shaikh Sophia Denton [address] [address] Patient Name: BHAVANA HICKS MRN: [facility]:[id number] date: 1980 Sex: F Assigned Patient Location: LAB Current Patient Location: Accession/Order Number: [id number] Exam Date: 01/30/2024 10:55 Report Date: 01/31/2024 13:05 At the request of: SHAIKH CORRIE Procedure: XR knee MARGARITA 3V EXAMINATION: XR knee MARGARITA 3V HISTORY: Chronic Pain Of Both Knees M25.561 COMPARISON: No relevant comparison available. FINDINGS: RIGHT FINDINGS: BONES: No significant arthropathy or acute abnormality. SOFT TISSUES: No visible soft tissue swelling. OTHER: Negative. LEFT FINDINGS: BONES: No significant arthropathy or acute abnormality. SOFT TISSUES: No visible soft tissue swelling. OTHER: Negative. XR/XR knee MARGARITA 3V IMPRESSION: RIGHT CONCLUSION: No suspicious abnormality or significant degenerative changes to account for patient's symptoms. LEFT CONCLUSION: No suspicious abnormality or significant degenerative changes to account for patient's symptoms. Electronically authenticated by: ROVERTO ABDI Date: 01/31/2024 13:05 Dictated By: Roverto Abdi M.D. Signed By: 01/31/24 1308 DD/ 1305 TD/TT: Company Manager: Procedure Note Radiology, Radiologist, MD - 01/31/2024 [place] [address] XRay Report Signed Patient: LORENZO HICKS#: [id number] : 1980Acct:[id number] Age/Sex: 43 / FADM Date: 01/30/24 Loc: LAB Attending Dr: Shaikh Corrie Cortes Ordering Physician: Shaikh Sophia Denton Date of Service: 01/30/24 Procedure(s): XR knee MARGARITA 3V Accession Number(s): [id number] cc: Shaikh Sophia Denton [address] [address] Patient Name: BHAVANA HICKS MRN: [facility]:[id number] date: 1980 Sex: F Assigned Patient Location: LAB Current Patient Location: Accession/Order Number: [id number] Exam Date: 01/30/2024 10:55 Report Date: 01/31/2024 13:05 At the request of: SHAIKH CORRIE Procedure: XR knee MARGARITA 3V EXAMINATION: XR knee MARGARITA 3V HISTORY: Chronic Pain Of Both Knees M25.561 COMPARISON: No relevant comparison available. FINDINGS: RIGHT FINDINGS: BONES: No significant arthropathy or acute abnormality. SOFT TISSUES: No visible soft tissue swelling. OTHER: Negative. LEFT FINDINGS: BONES: No significant arthropathy or acute abnormality. SOFT TISSUES: No visible soft tissue swelling. OTHER: Negative. XR/XR knee MARGARITA 3V IMPRESSION: RIGHT CONCLUSION: No suspicious abnormality or significant degenerative changes to account for patient's symptoms. LEFT CONCLUSION: No suspicious abnormality or significant degenerativechanges to account for patient's symptoms. Electronically authenticated by: ROVERTO ABDI Date: 01/31/2024 13:05 Dictated By: Roverto Abdi M.D. Signed By:01/31/24 1308 DD/ 1305 TD/TT: Company Manager: us Shaikh Corrie KANG [facility] Final Result documented in this encounter Visit Diagnoses Not on filedocumented in this encounter Care Teams Controls Design Engineer Relationship Specialty Start Date End Date Shaikh [place] [address] PCP - General Internal Medicine 10/24/23 04/02/24 Joel Gibbs MD [address] [place] [address] PCP - General Family Medicine 04/03/24 Lu Land NP [address] [place] [address] Nurse Practitioner Family Medicine 04/03/24 Celia Kraus APRN-CURVE SAW OPERATOR [address] [address] [place] [address] Nurse Practitioner Psychiatry 09/12/24 Gustavo Xiao LPC Therapist Behavioral Health 02/24/25 documented as of this encounter
--- OUTSIDE RECORDS SUMMARY | 2025-02-26 09:08 | XMS_ITS | Encounter Summary ---
Author Organization [facility] Address [address] [place] [address] Care Team Providers Care Automatic Steel Tie Adjuster Name Role Phone Joel Gibbs MD Primary Care Provider [phone] Lu Land COLLET DRILLER Unavailable [phone] Celia Kraus BEACH ATTENDANT-HISTORIC INTERPRETER Unavailable Gustavo Xiao LPC Unavailable Unavailable Encounter Details Date Type Department Care Team (Late st Contact Info) Description 07/02/2024 Orders Only [facility] [address] [place] [address] Jermain Verma MD [address] [facility] [address] [place] [address] Social History Tobacco Use Types Packs/Day Years [...] How often do you attend chur or sikh services? More than 4 times per year 04/30/2024 Do you belong to any clubs o r organizations such as druze groups, unions, fraternal or athletic groups, or [...] Recorded Patient Health Questionnaire-2 Score 0 05/01/2024 [facility] - Occupational [...] any time in the past 12 m [facility], were you homeless or living in a residential (including now)? No 04/30/2024 Education Answer Date [...] Work [facility] [address] [facility] [address] [place] [address] Gustavo Xiao LPC 03/25/2025 2:00 PM EDT Office Visit [facility] [address] [facility] 160 [place] [address] Celia Kraus, BEACH ATTENDANT-HISTORIC INTERPRETER [address] [facility] 160 [place] [address] 04/23/2025 4:30 PM EDT Office Visit [facility] [address] [place] [address] Marti Osman, RANDEE [address] [place] [address] documented as of this encounter Procedures Procedure Name Priority Date/Time Associated Diagnosis Comments COLONOSCOPY DIAGNOSTIC Routine 07/02/2024 8:22 AM EST documented in this encounter Results * COLONOSCOPY DIAGNOSTIC (07/02/2024 8:22 AM EST) Anatomical Region Laterality Modality Radiographic Rosa ging Jermain Verma MD IMG XR PROCEDURES Final Result documented in this encounter Visit Diagnoses Not on filedocumented in this encounter Care Teams Automatic Steel Tie Adjuster Relationship Specialty Start Date End Date Joel Gibbs MD [address] [place] [address] PCP - General Family Medicine 04/03/24 Lu Land NP [address] [place] [address] Nurse Practitioner Family Medicine 04/03/24 Celia Kraus APRN-HISTORIC INTERPRETER [address] [address] Nurse Practitioner Psychiatry 09/12/24 Gustavo Xiao LPC Therapist Behavioral Health 02/24/25 documented as of this encounter
--- OUTSIDE RECORDS SUMMARY | 2025-02-26 09:08 | XMS_ITS | Encounter Summary ---
Author Organization [facility] Address [address] [place] [address] Care Team Providers Care Property Maintenance Technician Name Role Phone Shaikh PEARL Denton Primary Care Provider [phone] Joel Gibbs MD Primary Care Provider [phone] Lu Land GILL TENDER Unavailable [phone] Celia Kraus OUTSIDE SALES MANAGER-PLATE CLEANER Unavailable Gustavo Xiao LPC Unavailable Unavailable Encounter Details Date Type Department Care Team (Late st Contact Info) Description 12/11/2023 Clinisync Result Encounter [facility] External Department Unsolicited Shaikh Denton MD [address] [place] [address] Social History Tobacco Use Types Packs/Day Years [...] 03/17/2025 2:30 PM EDT Social Work [facility] [address] [facility] [address] [place] [address] Gustavo Xiao LPC 03/25/2025 2:00 PM EDT Office Visit [facility] [address] [facility] 160 [place] [address] Celia Kraus Leigh, OUTSIDE SALES MANAGER-PLATE CLEANER [address] [facility] [address] [place] [address] 04/23/2025 4:30 PM EDT Office Visit [facility] [address] [place] [address] Marti Osman, GILL TENDER [address] [place] [address] documented as of this encounter Procedures Procedure Name Priority Date/Time Associated Diagnosis Comments BI US BREAST LIMITED RIGHT 12/11/2023 4:13 PM EDT documented in this encounter Results * Right breast US limited (12/11/2023 4:13 PM EDT) Anatomical Region Laterality Modality Breast Right Ultrasound 12/11/2023 4:13 PM EDT Narrative 12/11/2023 4:14 PM EDT The [address] [address] Ultrasound Report Signed Patient: BHAVANA HICKS MR#: [id number] : 1980 Acct:[id number] Age/Sex: 43 / F ADM Date: 12/11/23 Loc: US Attending Dr: Shaikh Corrie Cortes Ordering Physician: Shaikh Sophia Denton Date of Service: 12/11/23 Procedure(s): US breast RT limited Accession Number(s): [id number] cc: Shaikh Sophia Denton Patient Name: BHAVANA HICKS MR#: [id number] : 1980 Exam Date: 12/11/2023 Ordering Doctor: Shaikh Igor Denton . RADIOLOGY REPORT PROCEDURE: US BREAST RT LIMITED COMPARISON: MM TOMOSYNTHESIS SCREENING BI, 12/05/2023. INDICATIONS: Abnormal mammogram of right breast R92.8 TECHNIQUE: Breast ultrasound was performed, with evaluation focusing only on specific areas of concern. FINDINGS: DIAGNOSTIC CATEGORY 3--PROBABLY BENIGN FINDING. THE FOLLOWING FINDING(S) HAS A HIGH PROBABILITY OF A BENIGN ETIOLOGY: Area of hypodensity identified in the right breast 4 o'clock position measuring 7.9 x 7.6 x 7.9 mm. This could represent prominent fibroglandular tissue. I cannot determine if this corresponds to the mammographic finding. Short interval follow-up is recommended with repeat mammogram and ultrasound in 6 months RECOMMENDATIONS: SHORT TERM FOLLOW-UP DIAGNOSTIC MAMMOGRAM RIGHT BREAST IN 6 MONTHS. SHORT TERM FOLLOW-UP ULTRASOUND RIGHT BREAST IN 6 MONTHS. PLEASE NOTE: A NORMAL ULTRASOUND EXAMINATION DOES NOT EXCLUDE THE POSSIBILITY OF BREAST CANCER. A CLINICALLY SUSPICIOUS PALPABLE LUMP SHOULD BE BIOPSIED. Dictated by: Simeon Deng MD on 12/11/2023 at 16:08 Approved by: Simeon Deng MD on 12/11/2023 at 16:13 Dictated By: Simeon Deng M.D. Signed By: 12/11/234 DD/ 12 TD/TT: Adult Health Clinical Nurse Specialist: Procedure Note Radiology, Radiologist, - 12/11/2023 [place] [address] Ultrasound Report Signed Patient: CHARMAINE HICKSR#: [id number] : 1980Acct:[id number] Age/Sex: 43 / FADM Date: 12/11/23 Loc: US Attending Dr: Shaikh Corrie Cortes Ordering Physician: Shaikh Sophia Denton Date of Service: 12/11/23 Procedure(s): US breast RT limited Accession Number(s): [id number] cc: Shaikh Sophia Denton Patient Name: BHAVANA HICKS MR#: [id number] : 1980 Exam Date: 12/11/2023 Ordering Doctor: Shaikh Igor Denton . RADIOLOGY REPORT PROCEDURE: US BREAST RT LIMITED COMPARISON: MM TOMOSYNTHESIS SCREENING BI, 12/05/2023. INDICATIONS: Abnormal mammogram of right breast R92.8 TECHNIQUE: Breast ultrasound was performed, with evaluation focusingonly on specific areas of concern. FINDINGS: DIAGNOSTIC CATEGORY 3--PROBABLY BENIGN FINDING. THE FOLLOWING FINDING(S)HAS A HIGH PROBABILITY OF A BENIGN ETIOLOGY: Area of hypodensity identified in the right breast 4 o'clock position measuring 7.9 x 7.6 x 7.9 mm. This could represent prominentfibroglandular tissue. I cannot determine if this corresponds to the mammographicfinding. Short interval follow-up is recommended with repeat mammogram andultrasound in 6 months RECOMMENDATIONS: SHORT TERM FOLLOW-UP DIAGNOSTIC MAMMOGRAM RIGHT BREAST IN 6 MONTHS. SHORT TERM FOLLOW-UP ULTRASOUND RIGHT BREAST IN 6 MONTHS. PLEASE NOTE: A NORMAL ULTRASOUND EXAMINATION DOES NOT EXCLUDE THEPOSSIBILITY OF BREAST CANCER. A CLINICALLY SUSPICIOUS PALPABLE LUMP SHOULD BEBIOPSIED. Dictated by: Simeon Deng MD on 12/11/2023 at 16:08 Approved by: Simeon Deng MD on 12/11/2023 at 16:13 Dictated By: Simeon Deng M.D. Signed By:12/11/234 DD/ 12 TD/TT: Adult Health Clinical Nurse Specialist: us Shaikh Corrie KANG IMG US PROCEDURES Final Result documented in this encounter Visit Diagnoses Not on filedocumented in this encounter Care Teams Property Maintenance Technician Relationship Specialty Start Date End Date Shaikh Denton MD [address] [place] [address] PCP - General Internal Medicine 10/24/23 04/02/24 Joel Gibbs MD [address] [place] [address] PCP - General Family Medicine 04/03/24 Lu Land NP [address] [place] [address] Nurse Practitioner Family Medicine 04/03/24 Celia Kraus, OUTSIDE SALES MANAGER-PLATE CLEANER [address] [place] [address] Nurse Practitioner Psychiatry 09/12/24 Gustavo Xiao LPC Therapist Behavioral Health 02/24/25 documented as of this encounter
--- OUTSIDE RECORDS SUMMARY | 2025-02-26 09:08 | XMS_ITS | Encounter Summary ---
Author Organization [facility] Address [address] [facility] [place] [address] Care Team Providers Care District Court Bailiff Name Role Phone Shaikh PEARL Denton Primary Care Provider [phone] Joel Gibbs MD Primary Care Provider [phone] Lu Land DIRECTOR OF HOUSING AND ENERGY SERVICES Unavailable [phone] Celia Kraus FLIGHT LINE MECHANIC-EXPLOSIVES TRUCK DRIVER Unavailable Gustavo Xiao LPC Unavailable Unavailable Encounter Details Date Type Department Care Team (Late st Contact Info) Description 12/06/2023 Clinisync Result Encounter N[facility]S External Department Unsolicited Shaikh Denton MD [address] [place] [id number] Social History Tobacco Use Types Packs/Day Years [...] 03/17/2025 2:30 PM EDT Social Work [facility] [address] [place] [address] Gustavo Xiao LPC 03/25/2025 2:00 PM EDT Office Visit [facility] [address] [facility] 160 [place] [address] Efra Celia Abraham, FLIGHT LINE MECHANIC-EXPLOSIVES TRUCK DRIVER [address] [facility] 160 [place] [address] 04/23/2025 4:30 PM EDT Office Visit [facility] [address] [place] [address] Marti Osman, DIRECTOR OF HOUSING AND ENERGY SERVICES [address] [place] [address] documented as of this encounter Procedures Procedure Name Priority Date/Time Associated Diagnosis Comments MM TOMOSYNTHESIS SCREENING BI 12/06/2023 7:59 AM EDT documented in this encounter Results * MM TOMOSYNTHESIS SCREENING BI (12/06/2023 7:59 AM EDT) Anatomical Region Laterality Modality Other 12/06/2023 7:59 AM EDT Narrative 12/06/2023 8:00 AM EDT The [address] [address] Mammography Report Signed Patient: BHAVANA HICKS MR#: [id number] : 1980 Acct:[id number] Age/Sex: 43 / F ADM Date: 12/05/23 Loc: MAMMO Attending Dr: Shaikh Corrie Cortes Ordering Physician: Shaikh Sophia Denton Results: Date of Service: 12/05/23 Follow Up: Procedure(s): MM tomosynthesis screening BI Accession Number(s): [id number] cc: Shaikh Sophia Denton Patient Name: BHAVANA HICKS MR#: [id number] : 1980 Exam Date: 12/05/2023 Ordering Doctor: [...] leukemia cancer at age 59. LOCATION: The [facility] BREAST COMPOSITION: Heterogeneously dense,which may obscure small [...] Signed By: 12/06/23 0800 DD/ 0759 TD/TT: Music Writer: Procedure Note Radiology, Radiologist, - 12/06/2023 [place] [address] Mammography Report Signed Patient: LORENZO HICKS#: [id number] : 1980Acct:[id number] Age/Sex: 43 / FADM Date: 12/05/23 Loc: MAMMO Attending Dr: Shaikh Corrie Cortes Ordering Physician: Shaikh Sophia DentonResults: Date of Service: 12/05/23Follow Up: Procedure(s): MM tomosynthesis screening BI Accession Number(s): [id number] cc: Shaikh Sophia Denton Patient Name: BHAVANA HICKS MR#: [id number] : 1980 Exam Date: 12/05/2023 Ordering Doctor: [...] leukemia cancer at age 59. LOCATION: The [facility] BREAST COMPOSITION: Heterogeneously dense,which may obscure smallmasses. [...] M.D. Signed By:12/06/23 0800 DD/ 0759 TD/TT: Music Writer: Shaikh Corrie [facility]ANG [facility] Final Result documented in this encounter Visit Diagnoses Not on filedocumented in this encounter Care Teams District Court Bailiff Relationship Specialty Start Date End Date Shaikh Denton MD [address] [place] [address] PCP - General Internal Medicine 10/24/23 04/02/24 Joel Gibbs MD [address] [place] [address] PCP - General Family Medicine 04/03/24 Lu Land NP [address] [place] [address] Nurse Practitioner Family Medicine 04/03/24 Celia Kraus, FLIGHT LINE MECHANIC-EXPLOSIVES TRUCK DRIVER [address] [facility] 160 [place] [address] Nurse Practitioner Psychiatry 09/12/24 Gustavo Xiao LPC Therapist Behavioral Health 02/24/25 documented as of this encounter
--- OUTSIDE RECORDS SUMMARY | 2025-02-26 09:08 | XMS_ITS | Encounter Summary ---
Author Organization [facility] Address [address] [facility] [place] [address] Care Team Providers Care Scorekeeper Name Role Phone Shaikh PEARL Denton Primary Care Provider [phone] Joel Gibbs MD Primary Care Provider [phone] Lu Land MARBLE WORKER Unavailable [phone] Celia Kraus STRAP SETTER-TOW BOAT CAPTAIN Unavailable Gustavo Xiao LPC Unavailable Unavailable Encounter Details Date Type Department Care Team (Late st Contact Info) Description 01/15/2024 Orders Only [facility] [address] [place] [address] Shaikh Denton MD [address] [place] [address] Social History Tobacco Use Types Packs/Day Years Used Date Smoking Tobacco: Former Cigarettes Passive Smoke Exposure: Past Smokeless Tobacco: Never Alcohol Use Standard Drinks/Week Comments Yes 12 (1 standard drink = 0.6 oz pu re alcohol) PHQ-2 Answer Date Recorded Patient Health Questionnaire-2 Score 0 12/19/2023 Comments Unknown Sex and Gender Information Value [...] [address] [place] [address] Gustavo Xiao LPC 03/25/2025 2:00 PM EDT Office Visit [facility] [address] [place] [address] Celia Kraus, STRAP SETTER-TOW BOAT CAPTAIN [address] [facility] 160 [place] [address] 04/23/2025 4:30 PM EDT Office Visit [facility] [address] [place] [address] Marti Osman NP [address] [place] [address] documented as of this encounter Visit Diagnoses Not on filedocumented in this encounter Care Teams Scorekeeper Relationship Specialty Start Date End Date Shaikh Denton MD [address] [place] [address] PCP - General Internal Medicine 10/24/23 04/02/24 Joel Gibbs MD [address] [place] [address] PCP - General Family Medicine 04/03/24 Lu Land NP [address] [place] [address] Nurse Practitioner Family Medicine 04/03/24 Celia Kraus, STRAP SETTER-[facility] [address] [facility] 160 [place] [address] Nurse Practitioner Psychiatry 09/12/24 Gustavo Xiao LPC Therapist Behavioral Health 02/24/25 documented as of this encounter
--- OUTSIDE RECORDS SUMMARY | 2025-02-26 09:08 | XMS_ITS | Encounter Summary ---
Author Organization [facility] Address [address] [place] [address] Care Team Providers Care Supervisor Coating Name Role Phone Shaikh PEARL Denton Primary Care Provider [phone] Joel Gibbs MD Primary Care Provider [phone] Lu Land OUTER DIAMETER GRINDER TOOL Unavailable [phone] Celia Kraus PORTER BAGGAGE-ENVIRONMENTAL ANALYST Unavailable Gustavo Xiao LPC Unavailable Unavailable Encounter Details Date Type Department Care Team (Late st Contact Info) Description 12/06/2023 Clinisync Result Encounter NOMS External Department Unsolicited Shaikh Denton MD [address] [place] [address] Social History Tobacco Use Types Packs/Day Years [...] 2:30 PM EDT Social Work [facility] [address] [place] 160 [place] [address] Gustavo Xiao LPC 03/25/2025 2:00 PM EDT Office Visit [facility] [address] [facility] 160 [place] [address] Efra Celia Abraham, PORTER BAGGAGE-ENVIRONMENTAL ANALYST [address] [facility] 160 [place] [address] 04/23/2025 4:30 PM EDT Office Visit [facility] [address] [place] [address] Marti Osman, RANDEE [address] [place] [address] documented as of this encounter Procedures Procedure Name Priority Date/Time Associated Diagnosis Comments XR HAND 3+ VIEWS RIGHT 12/06/2023 9:12 AM EDT documented in this encounter Results * XR hand 3+ views right (12/06/2023 9:12 AM EDT) Anatomical Region Laterality Modality Upper Extremities, Hand Right [facility] 12/06/2023 9:12 AM EDT Narrative 12/06/2023 9:14 AM EDT The [address] [address] XRay Report Signed Patient: BHAVANA HICKS MR#: [id number] : 1980 Acct:[id number] Age/Sex: 43 / F ADM Date: 12/05/23 Loc: MAMMO Attending Dr: Shaikh Corrie Cortes Ordering Physician: Shaikh Sophia Denton Date of Service: 12/05/23 Procedure(s): XR hand RT min 3V Accession Number(s): [id number] cc: Shaikh Sophia Denton The [address] [address] Patient Name: BHAVANA HICKS MRN: [id number] date: 1980 Sex: F Assigned Patient Location: MAMMO Current Patient Location: MAMMO Accession/Order Number: [id number] Exam Date: 12/05/2023 16:30 Report Date: 12/06/2023 09:12 At the request of: SHAIKH CORRIE Procedure: XR hand RT min 3V PROCEDURE: XR hand RT min 3V COMPARISON: 09/18/2023 HISTORY: Cellulitis of right hand, L03.113 FINDINGS: BONES:No fracture, acute abnormality, or significant arthropathy. SOFT TISSUES:Negative. No visible soft tissue swelling. EFFUSION:None visible. OTHER: Negative. XR/XR hand RT min 3V IMPRESSION: No acute radiographic abnormality Electronically authenticated by: CORDELL RICH Date: 12/06/2023 09:12 Dictated By: Cordell Rich M.D. Signed By: 12/06/23913 DD/ 1 TD/TT: Wordpress Developer: Procedure Note Radiology, Radiologist, MD - 12/06/2023 [place] [address] XRay Report Signed Patient: LORENZO HICKS#: [id number] : 1980Acct:[id number] Age/Sex: 43 / FADM Date: 12/05/23 Loc: MAMMO Attending Dr: Shaikh Corrie Cortes Ordering Physician: Shaikh Sophia Denton Date of Service: 12/05/23 Procedure(s): XR hand RT min 3V Accession Number(s): [id number] cc: Shaikh Sophia Denton The [address] [address] Patient Name: BHAVANA HICKS MRN: [id number] date: 1980 Sex: F Assigned Patient Location: MAMMO Current Patient Location: MAMMO Accession/Order Number: [id number] Exam Date: 12/05/2023 16:30 Report Date: 12/06/2023 09:12 At the request of: SHAIKH CORRIE Procedure: XR hand RT min 3V PROCEDURE: XR hand RT min 3V COMPARISON: 09/18/2023 HISTORY: Cellulitis of right hand, L03.113 FINDINGS: BONES:No fracture, acute abnormality, or significant arthropathy. SOFT TISSUES:Negative. No visible soft tissue swelling. EFFUSION:None visible. OTHER: Negative. XR/XR hand RT min 3V IMPRESSION: No acute radiographic abnormality Electronically authenticated by: CORDELL RICH Date: 12/06/2023 09:12 Dictated By: Cordell Rich M.D. Signed By:12/06/23913 DD/ 1 TD/TT: Wordpress Developer: Shaikh Corrie KANG IMG XR PROCEDURES Final Result documented in this encounter Visit Diagnoses Not on filedocumented in this encounter Care Teams Supervisor Coating Relationship Specialty Start Date End Date Shaikh Denton MD [address] [place] [address] PCP - General Internal Medicine 10/24/23 04/02/24 Joel Gibbs MD [address] [place] [address] PCP - General Family Medicine 04/03/24 Lu Land NP [address] [place] [address] Nurse Practitioner Family Medicine 04/03/24 Celia Kraus APRN-ENVIRONMENTAL ANALYST [address] [facility] [place] [address] Nurse Practitioner Psychiatry 09/12/24 Gustavo Xiao LPC Therapist Behavioral Health 02/24/25 documented as of this encounter
--- OUTSIDE RECORDS SUMMARY | 2025-02-26 09:08 | XMS_ITS | Encounter Summary ---
Author Organization [facility] Address [address] [facility] [place] [address] Care Team Providers Care Geological Scout Name Role Phone Joel Gibbs MD Primary Care Provider [phone] Lu Land BIODIESEL OPERATIONS MANAGER Unavailable [phone] Celia Kraus BALANCING MACHINE SET UP WORKER-CARD DECORATOR Unavailable Gustavo Xiao LPC Unavailable Unavailable Encounter Details Date Type Department Care Team (Late st Contact Info) Description 06/17/2024 Abstract [facility] [address] [facility] 160 [place] [address] Celia Kraus, [facility] [address] [facility] 160 [place] [address] Social History Tobacco Use Types Packs/Day Years [...] How often do you attend chur or quaker services? More than 4 times per year 04/30/2024 Do you belong to any clubs o r organizations such as yarsanism groups, unions, fraternal or athletic groups, or [...] Recorded Patient Health Questionnaire-2 Score 0 05/01/2024 [facility] - Occupational [...] as of this encounter Functional Status * Audit-C Score Answer Date of Assessment Author 6 06/17/2024 9:59 AM Zahraa Paulino LPN * Question Answer Date of Assessment Author Q1: How often do you have a drink containing alcohol? 4 or more times a week 06/17/2024 9:59 AM Zahraa Paulino LPN Q2: How many drinks containing alcohol do you have on a typical day when you are drinking? 3 or 4 06/17/2024 9:59 AM Zahraa Paulino LP N Q3: How often do you have six or more drinks on one occasion? Less than monthly 06/17/2024 9:59 AM Zahraa Paulino LP N documented as of this encounter Plan of Treatment Upcoming Encounters Date Type Department Care Team (Late st Contact Info) Description 03/17/2025 2:30 PM EDT Social Work [facility] [address] [place] [address] Gustavo Xiao LPC 03/25/2025 2:00 PM EDT Office Visit [facility] [address] [place] [address] Celia Kraus, BALANCING MACHINE SET UP WORKER-CARD DECORATOR [address] [facility] [place] [address] 04/23/2025 4:30 PM EDT Office Visit [facility] [address] [place] [address] Marti Osman, BIODIESEL OPERATIONS MANAGER [address] [place] [address] documented as of this encounter Visit Diagnoses Not on filedocumented in this encounter Care Teams Geological Scout Relationship Specialty Start Date End Date Joel Gibbs MD [address] [place] [address] PCP - General Family Medicine 04/03/24 Lu Land NP [address] [place] [address] Nurse Practitioner Family Medicine 04/03/24 Celia Kraus, BALANCING MACHINE SET UP WORKER-CARD DECORATOR [address] [facility] [place] [address] Nurse Practitioner Psychiatry 09/12/24 Gustavo Xiao LPC Therapist Behavioral Health 02/24/25 documented as of this encounter
--- OUTSIDE RECORDS SUMMARY | 2025-02-26 09:08 | XMS_ITS | Encounter Summary ---
Author Organization [facility] Address [address] [facility] [place] [address] Care Team Providers Care Cabin Furnishings Installer Name Role Phone Shaikh PEARL Denton Primary Care Provider [phone] Joel Gibbs MD Primary Care Provider [phone] Lu Land LOG BUYER Unavailable [phone] Celia Kraus MECHANIC SENIOR-SURVEYOR MINE Unavailable Gustavo Xiao LPC Unavailable Unavailable Reason for Visit * Reason Comments Med Refill Encounter Details Date Type Department Care Team (Late st Contact Info) Description 12/12/2023 Refill [facility] [address] [place] [address] Shaikh Denton MD [address] [facility] [place] [address] NEDRA (generalized anxiety disorder) Social History Tobacco [...] encounter Miscellaneous Notes * Telephone Encounter - Shaikh Corrie MD - 12/12/2023 4:04 PM EDT Approving, but needs appt for additional refills. documented in this encounter Plan of Treatment Upcoming Encounters Date Type Department Care Team (Late st Contact Info) Description 03/17/2025 2:30 PM EDT Social Work [facility] [address] [place] [address] [place] [address] Gustavo Xiao LPC 03/25/2025 2:00 PM EDT Office Visit [facility] [address] [place] [address] [place] [address] Celia Kraus, MECHANIC SENIOR-[facility] [address] [place] [address] [place] [address] 04/23/2025 4:30 PM EDT Office Visit [facility] [address] [place] [address] Marti Osman NP [address] [place] [address] documented as of this encounter Visit Diagnoses Diagnosis NEDRA (generalized anxiety disorder) Generalized anxiety disorder documented in this encounter Care Teams Cabin Furnishings Installer Relationship Specialty Start Date End Date Shaikh Denton MD [address] [place] [address] PCP - General Internal Medicine 10/24/23 04/02/24 Joel Gibbs MD [address] [place] [address] PCP - General Family Medicine 04/03/24 uL Land NP [address] [place] [address] Nurse Practitioner Family Medicine 04/03/24 Celia Kraus, MECHANIC SENIOR-SURVEYOR MINE [address] [address] Nurse Practitioner Psychiatry 09/12/24 Gustavo Xiao LPC Therapist Behavioral Health 02/24/25 documented as of this encounter
--- OUTSIDE RECORDS SUMMARY | 2025-02-26 09:08 | XMS_ITS | Encounter Summary ---
Author Organization [facility] Address [address] [place] [address] Care Team Providers Care Engraving Operator Name Role Phone Joel Gibbs MD Primary Care Provider [phone] Lu Land CUSTOMS COMPLIANCE DIRECTOR Unavailable [phone] Celia Kraus ENVIRONMENTAL DEPARTMENT MANAGER-KEG RAISER Unavailable Gustavo Xiao LPC Unavailable Unavailable Encounter Details Date Type Department Care Team (Late st Contact Info) Description 02/24/2025 Bamboo flowsheet [facility] [address] [place] [address] Gustavo Xiao LPC Social History Tobacco Use Types Packs/Day Years [...] week 04/30/2024 How often do you attend [facility] or bahai services? More than 4 times per year 04/30/2024 Do you belong to any clubs o r organizations such as pentecostalism groups, unions, fraternal or athletic groups, or [...] Recorded Patient Health Questionnaire-2 Score 0 11/27/2024 [facility] - Occupational [...] time in the past 12 m [facility], were you homeless or living in a penitentiary (including now)? No 04/30/2024 Education Answer Date [...] Work [facility] [address] [facility] [address] [place] [address] Gustavo Xiao LPC 03/25/2025 2:00 PM EDT Office Visit [facility] [address] [facility] 160 [place] [address] Celia Kraus, ENVIRONMENTAL DEPARTMENT MANAGER-KEG RAISER [address] [facility] 160 [place] [address] 04/23/2025 4:30 PM EDT Office Visit [facility] [address] [place] [address] Marti Osman NP [address] [place] [address] documented as of this encounter Visit Diagnoses Not on filedocumented in this encounter Additional Health Concerns Assessment Noted Time PHQ-9 Depression Total Score: 5 11/28/19 25 1:37 PM EDT documented as of this encounter Care Teams Engraving Operator Relationship Specialty Start Date End Date Joel Gibbs MD [address] [place] [address] PCP - General Family Medicine 04/03/24 Lu Land NP [address] [place] [address] Nurse Practitioner Family Medicine 04/03/24 Celia Kraus APRN-KEG RAISER [address] [facility] [address] [place] [address] Nurse Practitioner Psychiatry 09/12/24 Gustavo Xiao LPC Therapist Behavioral Health 02/24/25 documented as of this encounter
[2025-02-26 10:14] LABS: Hematocrit 41.5 % (36.0-48.0); Hemoglobin 14.2 g/dL (12.0-16.0); Immature Granulocytes Abs Auto 0.01 10^3/uL (0.00-0.03); Immature Granulocytes Pct Auto 0.2 % (0.0-0.5); Lymphocytes Absolute Auto 1.3 10^3/uL (1.2-3.8); Mean Corpuscular HGB Conc 34.2 g/dL (29.9-35.2); Mean Corpuscular Hemoglobin 30.5 pg (26.7-34.0); Mean Corpuscular Volume 89.2 fL (81.0-99.0); Platelet Count 227 10^3/uL (150-450); Red Blood Count 4.65 10^6/uL (4.20-5.40); White Blood Count 6.0 10^3/uL (4.0-11.0)
[2025-02-26 10:22] LABS: Glucose Urine UA NEGATIVE (NEGATIVE)
[2025-02-26 10:39] LABS: Microalbum Creatinine Ratio Ur 40.2 mg/g (0.0-29.9)
[2025-02-26 10:48] LABS: Alanine Aminotransferase 36 U/L (14-59); Albumin Globulin Ratio 0.9; Albumin Level 3.4 g/dL (3.4-5.0); Alkaline Phosphatase 89 U/L (46-116); Anion Gap 13.6; Aspartate Amino Transferase 22 U/L (15-37); Blood Urea Nitrogen 18.0 mg/dL (7.0-18.0); Calcium 8.9 mg/dL (8.5-10.1); Carbon Dioxide 28.7 mmol/L (21.0-32.0); Chloride 105 mmol/L (98-107); Cholesterol 190 mg/dL (<=200); Estimated GFR (African America >60 (>=60 mL/min/1.73m^2); Estimated GFR (Non-African Ame >60 (>=60 mL/min/1.73m^2); Globulin 3.7 g/dL; Glucose 95 mg/dL (74-106); HDL Cholesterol 49 mg/dL (40-60); Potassium 3.3 mmol/L (3.5-5.1); Sodium 144 mmol/L (136-145); Total Protein 7.1 g/dL (6.4-8.2); Triglycerides 82 mg/dL (<=150); VLDL CHOLESTEROL 16.4 mg/dL
== END 2025-02-26 09:06 | disposition home or self-care (01) ==
LOC: MAMMO 09:05
PROVIDERS: PCP Nurse Practitioner; Visit Provider Nurse Practitioner
DX: Z00.00 Encounter for general adult medical examination without abnormal findings (principal); Z12.31 Encounter for screening mammogram for malignant neoplasm of breast; I10 Essential (primary) hypertension; Z80.6 Family history of leukemia; Z80.1 Family history of malignant neoplasm of trachea, bronchus and lung
CPT/HCPCS: 36415; 77063; 77067; 80053; 80061; 81003; 82043; 82570; 85025